=== PATIENT | female | born 1945 | race Caucasian/White ===

== ENCOUNTER 2016-10-18 17:22 | Emergency (ER) | payer OTHER ==
[~2016-10-18] VITALS: Ht 170.2 cm; Wt 117.9 kg
[~2016-10-18 17:22] MED LIST: ADVAIR 100-501 EACH INH; ADVAIR DISKU 11 UNIT INH; ALBUTEROL0.09 MG/A1 INH; AMLODIPINE BESYL5 M1 PO; AMOXICILLIN500 M3 PO; ATORVASTATIN CA10 MG PO; ATROVENT HFA 121 PUF INH; AZITHROMYCIN250 MG PO; BACTROBAN OINT.15 GM TOP; BUTALB-ACETAMI1 EACH PO; CARTIA XT180 M1 PO; CARTIA XT180 MG PO; CEFUROXIME500 MG PO; CHLORASEPTI EXT; COMBIVENT RESPI1 SPR INH; COMBIVENT RESPIM4 GM INH; COUMADIN 3 MG TA3 MG PO; COUMADIN 6 MG TA6 MG PO; COZAAR 50MG TAB50 MG PO; DIAZEPAM10 M1 PO; DIAZEPAM10 MG PO; DIFLUCAN150 M1 PO; DIFLUCAN150 MG PO; DOCUSATE SODIU100 MG PO; DURICEF500 MG PO; FUROSEMIDE20 MG PO; GUAIFENESIN600 MG PO; HYDROCODONE/ACE1 TA1 PO; KEFLEX500 MG PO; LASIX20 M1 PO; LIDODERM 5% PAT1 PAT TOP; LOMOTIL 2.5-0.1 EACH PO; LOSARTAN POTASS25 M1 PO; LOSARTAN POTASS25 MG PO; LOTRISONE CREAM15 GM TOP; METOPROLOL SUC100 M1 PO; METOPROLOL SUC100 M2 PO; METOPROLOL SUC100 MG PO; NORVASC2.5 M1 PO; OMEPRAZOLE40 M1 PO; OXYCODONE HCL15 M1 PO; OXYCODONE HYDRO15 MG PO; PERCOCET 325 MG1 TA2 PO; PREDNISONE10 MG PO; PROAIR HFA8.5 GM INH; PYRIDIUM100 M1 PO; TIZANIDINE HCL4 M1 PO; VENTOLIN1 PUF INH; VIBRAMYCIN100 MG PO; VITAMIN D2000 UNIT PO; WARFARIN SODIUM6 M1 PO
[2016-10-18] MEDS ORDERED: WARFARIN SODIUM3 M1 PO (19:43)
--- NOTE | 2016-10-18 19:57 | ED GI/GU/ABDOMINAL COMPLAINT ---
History of Present Illness General Chief Complaint: Abdominal Pain/Flank Pain Stated Complaint: ABD PAIN/BACK PAIN X 1 DAY Source: patient, old records Exam Limitations: no limitations Vital Signs & Intake/Output Vital Signs & Intake/Output Vital Signs Date Time Temp Pulse Resp B/P Pulse O2 O2 Flow FiO2 Ox Delivery Rate 10/18 2234 97.6 64 18 162/85 95 Room Air 10/18 2027 97.2 58 18 171/94 96 Room Air 10/18 1950 Room Air 10/18 1821 97.7 74 18 135/83 65 Room Air Allergies Coded Allergies: losartan (From COZAAR) (DIARRHEA - SEVERE PER PT 06/22/16) pineapple (MAKES RASHES THAT LOOK LIKE RINGS 06/22/16) shrimp (RASH 06/22/16) tramadol (HIVES 06/22/16) duloxetine (Severe, DIARRHEA 06/22/16) Sulfa (Sulfonamide Antibiotics) (VOMITING 06/22/16) celery (PER PT VOICE GETS HOARSE 06/22/16) ciprofloxacin (From CIPRO) (HAIRS ON ARM STAND UP PER PT 06/22/16) furazolidone (NAUSEA 06/22/16) glucosamine (NAUSEA 06/22/16) mushroom (YEAST INFECTION 06/22/16) sulfamethoxazole (From SEPTRA) (VOMITING 06/22/16) trimethoprim (VOMITING 06/22/16) Reconcile Medications Albuterol Sulfate (Proair Hfa) 90 MCG HFA.AER.AD 2 PUF INH PRN COPD (Reported ) Amlodipine (Norvasc) 2.5 MG TABLET 1 TAB PO PRN BP (Reported) Amlodipine Besylate 5 MG TABLET 1 TAB PO DAILY BP (Reported) Butalb/Acetaminophen/Caffeine (Pboukn-Emhnfsmt-Akol 50-325-40) 1 EACH TABLET 1 TAB PO PRN MIGRAINE (Reported) Diazepam 10 MG TABLET 1 TAB PO Q8H PRN ANXIETY (Reported) Diltiazem HCl (Cartia Xt) 180 MG CAP.ER.24H 1 CAP PO BID HEART (Reported) Furosemide (Lasix) 20 MG TABLET 1 TAB PO AD PRN SWELLING (Reported) Losartan Potassium 25 MG TABLET 1 TAB PO DAILY HEART/BP (Reported) Metoprolol Succinate 100 MG TAB.ER.24H 1 TAB PO QAM BP (Reported) Oxycodone HCl 15 MG TABLET 1 TAB PO Q4-6H PRN FIBROMYALGIA/CHRONIC FATIGUE ( Reported) Warfarin Sodium 6 MG TABLET 1 TAB PO AD BLOOD THINNER (Reported) Warfarin Sodium 3 MG TABLET 1 TAB PO QSAT BLOOD THINNER (Reported) Triage Note: PT HAS "FUNNY GRUMBLINIGS IN HER STOMACH". PT STATES SHE FEELS LIKE SHE HAS A UTI AND HER RIGHT BREAST HURTS AND STATES SHE HAS A MASS THERE AND THE GLANDS ARE ALL SWOLLEN . Triage Nurses Notes Reviewed? yes ? N Is pt currently ? No HPI: Patient states that she has been on multiple antibiotics for recurrent UTI. She states that she had one episode of diarrhea 9 days ago. Patient also states that she developed these infection 8 days ago. She has not taken anything for the yeast infection. Today she developed a gurgling sensation in her epigastric area and pain in her right lower quadrant. The pain in her right lower quadrant is constant and there are no aggravating or mitigating factors. The pain is cramping in nature. There is no radiation. There are no aggravating or radiating factors. There is been no nausea or vomiting. There are no fevers or chills. Past History Travel History Traveled to [place] past 21 day No Medical History Any Pertinent Medical History? 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 No Review of Systems Review of Systems Constitutional: Reports: no symptoms. EENTM: Reports: no symptoms. Respiratory: Reports: no symptoms. Cardiovascular: Reports: no symptoms. GI: Reports: see HPI, abdominal pain. Genitourinary: Reports: see HPI, dysuria. Musculoskeletal: Reports: no symptoms. Skin: Reports: no symptoms. Neurological/Psychological: Reports: no symptoms. Hematologic/Endocrine: Reports: no symptoms. Immunologic/Allergic: Reports: no symptoms. All Other Systems: Reviewed and Negative Physical Exam Physical Exam General Appearance: well developed/nourished, alert, awake, mild distress Head: atraumatic, normal appearance Eyes: Bilateral: PERRL, EOMI. Ears, Nose, Throat, Mouth: hearing grossly normal, moist mucous membrane Neck: normal inspection, supple, full range of motion Respiratory: normal breath sounds, chest non-tender, no respiratory distress, lungs clear Cardiovascular: regular rate/rhythm, normal peripheral pulses Gastrointestinal: normal bowel sounds, soft, no organomegaly, tenderness (RLQ) Back: NO CVA TENDERNESS Extremities: normal range of motion Neurologic/Psych: no motor/sensory deficits, awake, alert, oriented x 3, normal gait, normal mood/affect Skin: intact, normal color, warm/dry Core Measures ACS in differential dx? No Severe Sepsis Present: No Septic Shock Present: No Progress Differential Diagnosis: bowel obstruction, gastritis, hepatitis, ischemic bowel, inflamm bowel dis, pancreatitis, peptic ulcer, PUD/GERD, UTI/pyelo Plan of Care: Orders Procedure Date/time Status URINALYSIS 10/18 1957 Complete TROPONIN LEVEL 10/18 1957 Complete LIPASE 10/18 1957 Complete COMPREHENSIVE METABOLIC PANEL 10/18 1957 Complete CBC WITHOUT DIFFERENTIAL 10/18 1957 Complete AMYLASE 10/18 1957 Complete EKG 10/18 1725 Active Laboratory Tests 10/18/16 2204: Urine Color STRAW, Urine Clarity CLEAR, Urine pH 6.0, Ur Specific [place] <= 1.005, Urine Protein NEG, Urine Ketones NEG, Urine Nitrite NEG, Urine Bilirubin NEG, Urine Urobilinogen 0.2, Ur Leukocyte Esterase NEG, Ur Microscopic EXAM NOT REQUIRED, Urine Hemoglobin NEG, Urine Glucose NEG 10/18/16 2017: Anion Gap 11, Estimated GFR > 60, BUN/Creatinine Ratio 36.7 H, Glucose 100 H, Calcium 10.4 H, Total Bilirubin 0.6, AST 21, ALT 17, Alkaline Phosphatase 112, Troponin I < 0.01, Total Protein 8.1, Albumin 4.5, Globulin 3.6, Albumin/ Globulin Ratio 1.3, Amylase 38, Lipase 47, CBC w Diff NO MAN DIFF REQ, RBC 5.07, MCV 96.7, MCH 31.8 H, RDW 14.3, MPV 10.3, Gran % 57.9, Lymphocytes % 33.0, Monocytes % 7.1, Eosinophils % 1.6, Basophils % 0.4, Absolute Granulocytes 7.7 H, Absolute Lymphocytes 4.4 H, Absolute Monocytes 1.0 H, Absolute Eosinophils 0.2, Absolute Basophils 0.1, PUBS MCHC 32.8 L Diagnostic Imaging: Viewed by Me: CT Scan. Discussed w/RAD: CT Scan. Radiology Impression: PATIENT: BERTHA CARTER PRESENT AGE: 70 PATIENT ACCOUNT NO: [id number] : 47 LOCATION: [facility] ORDERING PHYSICIAN: CASEY PATTERSON MD SERVICE DATE: 10/18/16 EXAM TYPE: CAT - CT ABD & PELVIS W IV CONTRAST EXAMINATION: CT ABDOMEN AND PELVIS WITH CONTRAST CLINICAL INFORMATION: Epigastric and right lower quadrant pain. COMPARISON: CT abdomen and pelvis dated 09/16/[address] chest dated 2014. TECHNIQUE: Multidetector volumetric imaging was performed of the abdomen and pelvis before and after the IV administration of 95 mL of Optiray 320 intravenous contrast. Sagittal and coronal reformatted images were obtained on the technologist's workstation. DLP: 1129.33 mGy-cm. FINDINGS: LUNG BASES: Calcified pleural plaque and adjacent atelectatic changes right lower lobe. Calcified right hilar region. Stable low-attenuation opacity noted adjacent to left atrial appendage. LIVER, GALLBLADDER, AND BILIARY TREE: Low-attenuation segment 8 right hepatic lobe (series 2 image 11) measuring approximately 0.8 cm. It is too small to be accurately characterized. Mild prominence of the central intrahepatic bile ducts. Status post cholecystectomy. Dilated CBD measuring approximately 1.2 cm (series 602 image 46) slight interval prominence compared to prior examination. Clinical and laboratory correlation recommended. PANCREAS: Unremarkable. SPLEEN: Tiny low-attenuation posterior spleen measuring 0.7 cm and 0.4 cm too small to be accurately characterize (series 2 image 28 and 31) . ADRENAL GLANDS: Unremarkable. Within normal limits. KIDNEYS AND URETERS: Stable low-attenuation cortical lesion lower pole right kidney measuring approximately 1.5 cm. There is suggestion of internal septation. Thinning/scarring with adjacent low-attenuation partly calcified. Findings may represent scarring. Tiny low-attenuation cortical foci too small to be accurately characterized bilateral kidneys. BLADDER: Mildly thick-walled urinary bladder likely due to incomplete distention. GASTROINTESTINAL TRACT: Colonic diverticulosis without any evidence of acute diverticulitis. Appendix not well visualized. No gross evidence of acute bowel pathology. ABDOMINAL WALL: Thinning of the ventral abdominal wall as detailed in the mid left lateral aspect similar to the previous examination. LYMPH NODES: Multiple small reactive nodes noted in the mesentery. No evidence VASCULAR: Atherosclerotic disease of the aorta and aortic branches. PELVIC VISCERA: Unremarkable. OSSEOUS STRUCTURES: Bony osteopenia. Stable sclerotic density L2 vertebra represents a nonspecific finding.. IMPRESSION: 1. Stable calcified pleural plaque and calcified lymph nodes as detailed 2. Stable soft tissue prominence along the atria appendage since a chronic change. 3. Dilated CBD measuring 1.2 cm represents an interval change. Clinical and laboratory correlation recommended. Subtle low-attenuation segment 8 right hepatic lobe and posterior spleen were difficult to assess on the prior examination without contrast. 4. Stable probable scarring with calcification noted right kidney. Stable subtle low-attenuation cortical lesions bilateral kidneys. 5. No acute bowel pathology. Colonic diverticulosis. No evidence of acute diverticulitis. 6. Stable sclerotic density L2 vertebra has remained stable since 09/16/2016. Comparison to CT abdomen dated 08/05/2014 will be performed when the images are available. Addendum will be dictated upon comparison. DICTATED BY: MIGEL CAMPOS MD DATE/TIME DICTATED:10/18/162142 ULTRASOUND SPECIALIST:BRONSON DATE/TIME TRANSCRIBED:10/18/162142 CONFIDENTIAL, DO NOT COPY WITHOUT APPROPRIATE AUTHORIZATION. <Electronically signed in Other Vendor System> SIGNED BY: MIGEL CAMPOS MD 10/18/16 1793 Initial ED EKG: NSR, nonspecific ST T wave chg Prior EKG: unchanged Comments: Patient states that her abdominal pain is completely resolved after the IV fluids. Departure Departure Disposition: HOME OR SELF CARE Condition: Stable Clinical Impression Primary Impression: Upper abdominal pain, unspecified Referrals: EDWARD DUEÑAS,INNA Linares (PCP/Family) Additional Instructions: RETURN IF SYMPTOMS WORSEN OR FOR ANY CONCERNS Departure Forms: Customer Survey General Discharge Information Prescriptions: Current Visit Scripts Fluconazole (Diflucan) 1 TAB PO DAILY #3 TAB
[2016-10-18 20:45] LABS: ABSOLUTE BASOPHIL COUNT 0.1 /CUMM (0.0-0.2); ABSOLUTE EOSINOPHIL COUNT 0.2 /CUMM (0.0-0.7); ABSOLUTE GRANULOCYTE CT 7.7 /CUMM (1.4-6.5); ABSOLUTE LYMPH COUNT 4.4 /CUMM (1.2-3.4); BASOPHIL % 0.4 % (0.0-2.0); EOSINOPHIL % 1.6 % (0-5); GRANULOCYTE % 57.9 % (42.2-75.2); MEAN CORPUSCULAR HGB 31.8 PG (27.0-31.0); MEAN CORPUSCULAR HGB CONC 32.8 G/DL (33.0-37.0); MEAN CORPUSCULAR VOLUME 96.7 FL (81.0-99.0); MEAN PLATELET VOLUME 10.3 FL (7.4-10.4); RBC DISTRIBUTION WIDTH 14.3 % (11.5-14.5); RED BLOOD CELL CT 5.07 /CUMM (4.20-5.40); WHITE BLOOD CELL COUNT 13.4 /CUMM (4.8-10.8)
[2016-10-18 21:00] LABS: PLATELET COUNT 210 /CUMM (130-400)
--- NOTE | 2016-10-18 22:08 | CT SCAN REPORT ---
EXAMINATION: CT ABDOMEN AND PELVIS WITH CONTRAST CLINICAL INFORMATION: Epigastric and right lower quadrant pain. COMPARISON: CT abdomen and pelvis dated 09/16/[address] chest dated 03/18/2015. TECHNIQUE: Multidetector volumetric imaging was performed of the abdomen and pelvis before and after the IV administration of 95 mL of Optiray 320 intravenous contrast. Sagittal and coronal reformatted images were obtained on the technologist's workstation. DLP: 1129.33 mGy-cm. FINDINGS: LUNG BASES: Calcified pleural plaque and adjacent atelectatic changes right lower lobe. Calcified right hilar region. Stable low-attenuation opacity noted adjacent to left atrial appendage. LIVER, GALLBLADDER, AND BILIARY TREE: Low-attenuation segment 8 right hepatic lobe (series 2 image 11) measuring approximately 0.8 cm. It is too small to be accurately characterized. Mild prominence of the central intrahepatic bile ducts. Status post cholecystectomy. Dilated CBD measuring approximately 1.2 cm (series 602 image 46) slight interval prominence compared to prior examination. Clinical and laboratory correlation recommended. PANCREAS: Unremarkable. SPLEEN: Tiny low-attenuation posterior spleen measuring 0.7 cm and 0.4 cm too small to be accurately characterize (series 2 image 28 and 31) . ADRENAL GLANDS: Unremarkable. Within normal limits. KIDNEYS AND URETERS: Stable low-attenuation cortical lesion lower pole right kidney measuring approximately 1.5 cm. There is suggestion of internal septation. Thinning/scarring with adjacent low-attenuation partly calcified. Findings may represent scarring. Tiny low-attenuation cortical foci too small to be accurately characterized bilateral kidneys. BLADDER: Mildly thick-walled urinary bladder likely due to incomplete distention. GASTROINTESTINAL TRACT: Colonic diverticulosis without any evidence of acute diverticulitis. Appendix not well visualized. No gross evidence of acute bowel pathology. ABDOMINAL WALL: Thinning of the ventral abdominal wall as detailed in the mid left lateral aspect similar to the previous examination. LYMPH NODES: Multiple small reactive nodes noted in the mesentery. No evidence VASCULAR: Atherosclerotic disease of the aorta and aortic branches. PELVIC VISCERA: Unremarkable. OSSEOUS STRUCTURES: Bony osteopenia. Stable sclerotic density L2 vertebra represents a nonspecific finding.. IMPRESSION: 1. Stable calcified pleural plaque and calcified lymph nodes as detailed 2. Stable soft tissue prominence along the atria appendage since a chronic change. 3. Dilated CBD measuring 1.2 cm represents an interval change. Clinical and laboratory correlation recommended. Subtle low-attenuation segment 8 right hepatic lobe and posterior spleen were difficult to assess on the prior examination without contrast. 4. Stable probable scarring with calcification noted right kidney. Stable subtle low-attenuation cortical lesions bilateral kidneys. 5. No acute bowel pathology. Colonic diverticulosis. No evidence of acute diverticulitis. 6. Stable sclerotic density L2 vertebra has remained stable since 09/16/2016. Comparison to CT abdomen dated 08/05/2014 will be performed when the images are available. Addendum will be dictated upon comparison.
[2016-10-18 22:35] VITALS: BP 162/85
[2016-10-18] MEDS ORDERED: DIFLUCAN200 M1 PO (22:40)
== END 2016-10-18 22:48 ==
LOC: ERH 17:22
PROVIDERS: Emergency Medicine
DX: R10.13 Epigastric pain (principal)
CPT/HCPCS: 74177; 81001; 81003; 93005; 93010; 96360; 96361

== ENCOUNTER 2016-12-01 20:15 | Emergency (ER) | payer OTHER ==
[~2016-12-01 20:15] MED LIST changes: +DIFLUCAN200 M1 PO; +WARFARIN SODIUM3 M1 PO
--- NOTE | 2016-12-01 20:55 | ED GENERAL ADULT ---
History of Present Illness General Chief Complaint: Dyspnea (COPD, CHF, Other) Stated Complaint: PT C/O OF SOB/ JAW PAIN Source: patient Exam Limitations: no limitations Vital Signs & Intake/Output Vital Signs & Intake/Output Vital Signs Date Time Temp Pulse Resp B/P Pulse O2 O2 Flow FiO2 Ox Delivery Rate 12/02 0152 97.1 76 18 163/89 96 Room Air 12/02 0054 98.9 70 18 140/75 95 12/01 2256 97.0 77 18 144/85 96 12/01 215 96 12/01 2020 97.4 89 22 146/88 98 Room Air ED Intake and Output 12/02 0000 12/01 1200 Intake Total 30 Output Total Balance 30 Intake, Oral 30 Allergies Coded Allergies: losartan (From COZAAR) (DIARRHEA - SEVERE PER PT 06/22/16) pineapple (MAKES RASHES THAT LOOK LIKE RINGS 06/22/16) shrimp (RASH 06/22/16) tramadol (HIVES 06/22/16) duloxetine (Severe, DIARRHEA 06/22/16) Sulfa (Sulfonamide Antibiotics) (VOMITING 06/22/16) celery (PER PT VOICE GETS HOARSE 06/22/16) ciprofloxacin (From CIPRO) (HAIRS ON ARM STAND UP PER PT 06/22/16) furazolidone (NAUSEA 06/22/16) glucosamine (NAUSEA 06/22/16) mushroom (YEAST INFECTION 06/22/16) sulfamethoxazole (From SEPTRA) (VOMITING 06/22/16) trimethoprim (VOMITING 06/22/16) Reconcile Medications Albuterol Sulfate (Proair Hfa) 90 MCG HFA.AER.AD 2 PUF INH PRN COPD (Reported ) Amlodipine (Norvasc) 2.5 MG TABLET 1 TAB PO PRN BP (Reported) Amlodipine Besylate 5 MG TABLET 1 TAB PO DAILY BP (Reported) Butalb/Acetaminophen/Caffeine (Ivmhsk-Csxjutdn-Fwtk 50-325-40) 1 EACH TABLET 1 TAB PO PRN MIGRAINE (Reported) Diazepam 10 MG TABLET 1 TAB PO Q8H PRN ANXIETY (Reported) Diltiazem HCl (Cartia Xt) 180 MG CAP.ER.24H 1 CAP PO BID HEART (Reported) Fluconazole (Diflucan) 200 MG TABLET 1 TAB PO DAILY YEAST INFECTION Furosemide (Lasix) 20 MG TABLET 1 TAB PO AD PRN SWELLING (Reported) Losartan Potassium 25 MG TABLET 1 TAB PO DAILY HEART/BP (Reported) Metoprolol Succinate 100 MG TAB.ER.24H 1 TAB PO QAM BP (Reported) Oxycodone HCl 15 MG TABLET 1 TAB PO Q4-6H PRN FIBROMYALGIA/CHRONIC FATIGUE ( Reported) Warfarin Sodium 6 MG TABLET 1 TAB PO AD BLOOD THINNER (Reported) Warfarin Sodium 3 MG TABLET 1 TAB PO QSAT BLOOD THINNER (Reported) Triage Note: PER PT FELL A FEW WEEKS AGO, AND ON LASIX INCREASED DOSE, CUT DOWN ON OXY AND VALIUM AND HAVING JAW PAIN X 4 DAYS Triage Nurses Notes Reviewed? yes Onset: Abrupt Duration: day(s): Timing: recent history HPI: 12/01/18 This is a 70-year-old female who presents to the emergency department for right- sided rib pain, difficulty breathing, and jaw pain. The patient states that she fell approximately 2 weeks ago and had some right-sided rib pain. She subsequently developed some difficulty breathing and was apparently put on Lasix. She said over the past 48 hours she's had a cough and difficulty breathing. The onset of the symptoms have been abrupt, the duration has been approximately 48 hours, the severity is significant as her symptoms required her to come to the emergency department for care. (LAUREN MAYA DO) Past History Travel History Traveled to [place] past 21 day No Medical History Any Pertinent Medical History? 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 No (LAUREN MAYA DO) Review of Systems Review of Systems Constitutional: Denies: fever. EENTM: Denies: visual changes. Respiratory: Reports: cough, short of breath, sputum production. Cardiovascular: Denies: chest pain (rib pain). GI: Reports: abdominal pain. Genitourinary: Reports: no symptoms. Musculoskeletal: Reports: joint pain, muscle pain. Skin: Denies: rash. Neurological/Psychological: Reports: no symptoms. Hematologic/Endocrine: Reports: no symptoms. (LAUREN MAYA DO) Physical Exam Physical Exam General Appearance: alert, awake, anxious, mild distress Head: atraumatic, normal appearance Eyes: Bilateral: normal appearance, PERRL, EOMI. Ears, Nose, Throat: normal pharynx, normal ENT inspection Neck: normal inspection, supple Respiratory: decreased breath sounds Cardiovascular: regular rate/rhythm Peripheral Pulses: 4+ radial (R), 4+ radial (L) Gastrointestinal: non-tender Back: decreased range of motion Extremities: normal inspection Neurologic/Psych: no motor/sensory deficits, awake, alert, oriented x 3 Skin: intact, normal color, warm/dry Core Measures ACS in differential dx? No CVA/TIA Diagnosis: No Severe Sepsis Present: No Septic Shock Present: No (LAUREN MAYA DO) Progress Differential Diagnoses I considered the following diagnoses in my evaluation of the patient: [ACS, COPD , ASTHMA, PNEUMONIA, BRONCHITIS] Plan of Care: Orders Procedure Date/time Status TROPONIN LEVEL 12/01 2136 Complete TOTAL TRIODOTHYROXINE 12/01 2136 Complete D-DIMER 12/01 2136 Complete COMPREHENSIVE METABOLIC PANEL 12/01 2136 Complete CBC WITHOUT DIFFERENTIAL 12/01 2136 Complete EKG 12/01 2021 Active Laboratory Tests 12/01/165: Anion Gap 9, Estimated GFR > 60, BUN/Creatinine Ratio 25.0, Glucose 94, Calcium 9.6, Total Bilirubin 0.3, AST 17, ALT 24, Alkaline Phosphatase 112, Troponin I < 0.01, Total Protein 6.3, Albumin 3.3 L, Globulin 3.0, Albumin/Globulin Ratio 1.1, Total T3 1.29, D-Dimer < 200, CBC w Diff NO MAN DIFF REQ, RBC 4.57, MCV 96.0, MCH 31.7 H, RDW 13.7, MPV 9.5, Gran % 56.0, Lymphocytes % 34.0, Monocytes % 7.0, Eosinophils % 2.3, Basophils % 0.7, Absolute Granulocytes 5.4, Absolute Lymphocytes 3.3, Absolute Monocytes 0.7 H, Absolute Eosinophils 0.2, Absolute Basophils 0.1, PUBS MCHC 33.1 CXR Impression: no acute abnormality Initial ED EKG: nonspecific ST T wave chg (LAUREN MAYA DO) Departure Departure Disposition: STILL A PATIENT Condition: Stable Clinical Impression Primary Impression: Dyspnea Secondary Impressions: Bronchitis Referrals: EDWARD DUEÑAS,INNA Linares (PCP/Family) Departure Forms: Customer Survey General Discharge Information Comments 12/01/16 The patient was treated with albuterol and Atrovent and Solu-Medrol. Chest x- ray and labs were ordered. The patient was signed out to Dr. Lacey at 10 PM. (LAUREN AMYA DO) PA/WASTE RECYCLER Co-Sign Statement Statement: ED Attending supervision documentation- [] I saw and evaluated the patient. I have also reviewed all the pertinent lab results and diagnostic results. I agree with the findings and the plan of care as documented in the PA's/WASTE RECYCLER's documentation. [x] I have reviewed the ED Record and agree with the PA's/WASTE RECYCLER's documentation. [] Additions or exceptions (if any) to the PAs/WASTE RECYCLER's note and plan are summarized below: [] (MANAV DUEÑAS,LAWRENCE Gonzalez) Critical Care Note Critical Care Note Critical Care Time: non-applicable (LAUREN MAYA DO)
--- NOTE | 2016-12-01 22:12 | RADIOLOGY REPORT ---
EXAMINATION: XR PORTABLE CHEST CLINICAL INFORMATION: Shortness of breath. COMPARISON: 12/26/2015 TECHNIQUE: Portable AP view of the chest was obtained. FINDINGS: There is persistent elevation of the right hemidiaphragm. No consolidation, edema, or significant effusion. Minimal blunting at the right costophrenic angle is unchanged and may be chronic. No pneumothorax. The cardiomediastinal silhouette is unchanged, with a calcified aorta. No acute osseous abnormality. IMPRESSION: No acute pulmonary findings.
[2016-12-01 22:22] LABS: ABSOLUTE EOSINOPHIL COUNT 0.2 /CUMM (0.0-0.7); ABSOLUTE MONOCYTE COUNT 0.7 /CUMM (0.10-0.60); EOSINOPHIL % 2.3 % (0-5); MEAN CORPUSCULAR HGB 31.7 PG (27.0-31.0); RED BLOOD CELL CT 4.57 /CUMM (4.20-5.40)
[2016-12-01 22:26] LABS: ABSOLUTE BASOPHIL COUNT 0.1 /CUMM (0.0-0.2); ABSOLUTE GRANULOCYTE CT 5.4 /CUMM (1.4-6.5); ABSOLUTE LYMPH COUNT 3.3 /CUMM (1.2-3.4); BASOPHIL % 0.7 % (0.0-2.0); HEMATOCRIT 43.9 % (37-47); MEAN CORPUSCULAR HGB CONC 33.1 G/DL (33.0-37.0); PLATELET COUNT 131 /CUMM (130-400); RBC DISTRIBUTION WIDTH 13.7 % (11.5-14.5); WHITE BLOOD CELL COUNT 9.7 /CUMM (4.8-10.8)
[2016-12-01 22:44] LABS: MEAN PLATELET VOLUME 9.5 FL (7.4-10.4)
[2016-12-02 01:52] VITALS: BP 163/89
== END 2016-12-02 01:54 ==
LOC: ERH 20:15
PROVIDERS: Emergency Medicine
DX: J40 Bronchitis, not specified as acute or chronic (principal)
CPT/HCPCS: 1263; 93005; 93010

== ENCOUNTER 2017-02-14 15:36 | Emergency (ER) | payer OTHER ==
[~2017-02-14] VITALS: Ht 170.2 cm; Wt 122.9 kg
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
[2017-02-14 18:57] VITALS: BP 159/75
--- NOTE | 2017-02-14 18:57 | CT SCAN REPORT ---
EXAMINATION: CT HEAD WITHOUT CONTRAST CLINICAL INFORMATION: Lightheaded. Blurry vision. Headache. On Coumadin. COMPARISON: 01/12/2016 TECHNIQUE: Contiguous axial imaging was performed from the skull base to vertex without intravenous contrast. DLP: 1453 mGy-cm. FINDINGS: There is no evidence of acute intracranial hemorrhage or territorial infarction. No abnormal mass effect or midline shift is seen. Davison to white matter differentiation is well preserved. No extra-axial fluid collections are identified. No hydrocephalus. No significant volume loss. There is no abnormal attenuation within the brain parenchyma. No acute osseous or soft tissue abnormality. Hyperostosis frontalis interna. The mastoid air cells and visualized portions of the paranasal sinuses are well aerated. IMPRESSION: No acute intracranial pathology.
--- NOTE | 2017-02-14 19:12 | RADIOLOGY REPORT ---
EXAMINATION: XR ANKLE, RIGHT CLINICAL INFORMATION: Swelling, pain after fall COMPARISON: Right foot 09/16/2016 TECHNIQUE: AP, lateral, and mortise views of the right ankle. FINDINGS: Diffuse subcutaneous edema of the lower leg extending to the ankle without specificity. No radiographic evidence of acute fracture or subluxation. The mortise appears congruent. No joint effusion. No significant degenerative changes. Stable 1.4 cm sclerotic lesion within the calcaneus. IMPRESSION: Diffuse subcutaneous edema without specificity to the ankle. No radiographic evidence of acute fracture or subluxation.
[2017-03-24] MEDS ORDERED: VALIUM5 M2 PO (19:16)
== END 2017-02-14 19:54 ==
LOC: ERH 15:36
DX: S00.93XA Contusion of unspecified part of head, initial encounter (principal); S93.401A Sprain of unspecified ligament of right ankle, initial encounter; W18.09XA Striking against other object with subsequent fall, initial encounter; Y93.01 Activity, walking, marching and hiking; Y92.014 Private driveway to single-family (private) house as the place of occurrence of the external cause
CPT/HCPCS: 73610-RT

== ENCOUNTER 2017-03-02 19:18 | Emergency (ER) | payer OTHER ==
[~2017-03-02] VITALS: Ht 170.2 cm; Wt 122.9 kg
[2017-03-02 19:38] VITALS: BP 128/62
--- NOTE | 2017-03-02 20:50 | ED DYSPNEA/ASTHMA COMPLAINT ---
History of Present Illness General Chief Complaint: Dyspnea (COPD, CHF, Other) Stated Complaint: SOB Source: patient, old records Exam Limitations: no limitations Vital Signs & Intake/Output Vital Signs & Intake/Output Vital Signs Date Time Temp Pulse Resp B/P B/P Pulse O2 O2 Flow FiO2 Mean Ox Delivery Rate 03/02 2145 96 Room Air 03/02 2126 96 03/02 1938 97.6 79 20 128/62 94 Room Air ED Intake and Output 03/03 0000 03/02 1200 Intake Total 120 Output Total Balance 120 Intake, Oral 120 Patient 271 lb Weight Weight Estimated Measurement Method Allergies Coded Allergies: losartan (From COZAAR) (DIARRHEA - SEVERE PER PT 06/22/16) pineapple (MAKES RASHES THAT LOOK LIKE RINGS 06/22/16) shrimp (RASH 06/22/16) tramadol (HIVES 06/22/16) duloxetine (Severe, DIARRHEA 06/22/16) Sulfa (Sulfonamide Antibiotics) (VOMITING 06/22/16) celery (PER PT VOICE GETS HOARSE 06/22/16) ciprofloxacin (From CIPRO) (HAIRS ON ARM STAND UP PER PT 06/22/16) furazolidone (NAUSEA 06/22/16) glucosamine (NAUSEA 06/22/16) mushroom (YEAST INFECTION 06/22/16) sulfamethoxazole (From SEPTRA) (VOMITING 06/22/16) trimethoprim (VOMITING 06/22/16) Reconcile Medications Albuterol Sulfate (Proair Hfa) 90 MCG HFA.AER.AD 2 PUF INH PRN COPD (Reported ) Amlodipine (Norvasc) 2.5 MG TABLET 1 TAB PO PRN BP (Reported) Amlodipine Besylate 5 MG TABLET 1 TAB PO DAILY BP (Reported) Butalb/Acetaminophen/Caffeine (Btvcpz-Cqrplwum-Iplt 50-325-40) 1 EACH TABLET 1 TAB PO PRN MIGRAINE (Reported) Diazepam 10 MG TABLET 1 TAB PO Q8H PRN ANXIETY (Reported) Diltiazem HCl (Cartia Xt) 180 MG CAP.ER.24H 1 CAP PO BID HEART (Reported) Fluconazole (Diflucan) 200 MG TABLET 1 TAB PO DAILY YEAST INFECTION Furosemide (Lasix) 20 MG TABLET 1 TAB PO AD PRN SWELLING (Reported) Losartan Potassium 25 MG TABLET 1 TAB PO DAILY HEART/BP (Reported) Metoprolol Succinate 100 MG TAB.ER.24H 1 TAB PO QAM BP (Reported) Ondansetron (Zofran Odt) 4 MG TAB.RAPDIS 1 TAB SL TID PRN NAUSEA Oxycodone HCl 15 MG TABLET 1 TAB PO Q4-6H PRN FIBROMYALGIA/CHRONIC FATIGUE ( Reported) Warfarin Sodium 6 MG TABLET 1 TAB PO AD BLOOD THINNER (Reported) Warfarin Sodium 3 MG TABLET 1 TAB PO QSAT BLOOD THINNER (Reported) Triage Note: RECEIVED 71 YO FEMALE C/O SHORTNESS OF BREATH, STARTED TODAY. PT ALSO REPORTS PERSISTENT NAUSEA X 2 WEEKS SINCE HITTING HEAD (PT WAS SEEN HERE AND CT SCAN DONE). PT REPORTS RIGHT BREAST PAIN, PT HAS A RIGHT BREAST MASS? Triage Nurses Notes Reviewed? yes Onset: Abrupt Duration: day(s): (1), better, constant Timing: recent history Severity: mild, moderate Prior Episodes/Possible Cause: chronic episodes Associated Symptoms: cough, nausea, no vomiting HPI: 71-year-old female history of COPD A. fib on Coumadin use 2 L of oxygen at night and when necessary presents complaining of intermittent shortness of breath and nonproductive cough that began today and she attributes secondary to the pollen she's had a history of similar episodes in the past. She is also complaining of nausea going on for the past 2 weeks after she fell and hit her head. The patient was seen at the time here and had an unremarkable workup. She denies headache visual changes neck or back pain. No abdominal pain no chest pain palpitations dizziness lightheadedness. She is not on prednisone she does not smoke. She states she has not had to increase her amount of oxygen she uses The patient had mention in triage that she was complaining of pain to her right breast. The patient states to me that this is a chronic issue attributed to scar tissue that she has been worked up in the past there is no history of malignancy no overlying skin changes fever chills or redness to her breast no discharge (JAUN VICTORIA) Past History Travel History Traveled to [place] past 21 day No Medical History Any Pertinent Medical History? 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 No (JAUN VICTORIA) Review of Systems Review of Systems Constitutional: Reports: see HPI. All Other Systems: Reviewed and Negative Comments Review of systems: See HPI, All other systems negative. Constitutional, no chills no fever, no malaise HEENT: no sore throat no congestion, no ear pain Cardiovascular: No chest pain , no palpitation Skin: no rashes, no change in skin Respiratory: dyspnea cough no sputum GI: No nausea no vomiting, no diarrhea, : No dysuria Muscle skeletal: No joint pain, no joint swelling, no back pain, no neck pain, Neurologic: No numbness no confusion, no headache Psych: No stress Heme/endocrine: No bruising Immunology: No lymphadenopathy (JAUN VICTORIA) Physical Exam Physical Exam General Appearance: well developed/nourished, no apparent distress, alert, awake Respiratory: normal breath sounds, chest non-tender Comments: Well-developed well-nourished person in no acute distress HEENT: Normal EENT exam; PERRL, EOMI, HEAD is atraumatic. moist mucous membranes. Neck: Supple, normal range of motion Back: Nontender, no CVA tenderness. Full range of motion Cardiovascular: Regular rate and rhythms no murmurs rubs or gallops Respiratory: Chest nontender.There were no bony deformities, no asymmetry. No respiratory distress. Patient speaking in full complete sentences. Breath sounds clear to auscultation bilaterally: NO W/R/R Abdomen: Soft, nontender nondistended, no appreciable organomegaly. Normal bowel sounds. No rebound/guarding,No ascites. Extremity: No edema, full range of motion of extremities Neuro: Alert oriented x3, motor sensory normal There were no obvious focal neurologic abnormalities. Skin: No appreciable rash on exposed skin, skin is warm and dry. Psych: Mood and affect is normal, memory and judgment is normal. Core Measures ACS in differential dx? Yes Severe Sepsis Present: No Septic Shock Present: No (NADIA GOMEZ,JAUN) Progress Differential Diagnosis: asthma, AMI, bronchitis, costochondritis, CHF, COPD, pericarditis, pulmonary embolism, pneumonia, pneumothorax, unstable angina, electrolyte abnoramlity Plan of Care: Orders Procedure Date/time Status TROPONIN LEVEL 03/02 2054 Complete PROTHROMBIN TIME 03/02 2054 Complete COMPREHENSIVE METABOLIC PANEL 03/02 2054 Complete CBC WITHOUT DIFFERENTIAL 03/02 2054 Complete B-TYPE NATRIURETIC PEP (BNP) 03/02 2054 Complete EKG 03/02 1920 Active Laboratory Tests 03/02/172243: Anion Gap 6, Estimated GFR 55 L, BUN/Creatinine Ratio 23.0, Glucose 85, Calcium 9.6, Total Bilirubin 0.3, AST 19, ALT 31, Alkaline Phosphatase 117, Troponin I < 0.01, Rzr-G-Vvuwanjkuzp Pept 1110 H, Total Protein 6.8, Albumin 3.7, Globulin 3.1, Albumin/Globulin Ratio 1.2, PT 22.2 H, INR 2.13 H 03/02/172150: CBC w Diff NO MAN DIFF REQ, RBC 4.43, MCV 98.2, MCH 32.1 H, RDW 14.3, MPV 9.4, Gran % 65.3, Lymphocytes % 26.3, Monocytes % 6.3, Eosinophils % 2.0, Basophils % 0.1, Absolute Granulocytes 8.5 H, Absolute Lymphocytes 3.4, Absolute Monocytes 0.8 H, Absolute Eosinophils 0.3, Absolute Basophils 0, PUBS MCHC 32.7 L 03/02/172100: Bno-P-Ezauhaleedj Pept Cancelled DuoNeb ordered labs ordered old records reviewed case discussed with Dr. Villalobos Patient reports feeling improved after breathing treatment I discussed with her her x-ray findings and the chronic incidental finding regarding her elevated diaphragm. Pending labs Patient ambulatory around the ER with steady gait denies dyspnea dizziness chest pain. The patient is refusing prednisone which I strongly advise given her history of symptoms stating that it makes her "tameka" I discussed the need for close follow-up with her primary care physician Dr. Demarco tomorrow Zofran was provided for her nausea answered all of her questions she feels comfortable this plan cleared for discharge (JAUN VICTORIA) Diagnostic Imaging: Viewed by Me: Radiology Read. Discussed w/RAD: Radiology Read. Radiology Impression: PATIENT: BERTHA CARTER PRESENT AGE: 71 PATIENT ACCOUNT NO: [id number] : 47 LOCATION: [facility] ORDERING PHYSICIAN: JAUN GOMEZ SERVICE DATE: 03/02/17 EXAM TYPE: RAD - XRY-PORTABLE CHEST XRAY EXAMINATION: XR PORTABLE CHEST CLINICAL INFORMATION: 71-year-old female with dyspnea. Presumptive diagnosis pneumonia, CHF. COMPARISON: CT of the chest on 03/18/2015 and chest x-ray on 12/01/2016. TECHNIQUE: Portable AP semierect view of the chest was obtained. FINDINGS: The right hemidiaphragm is chronically and significantly elevated. This results in some compression atelectasis in the right lower lobe. The cardiac silhouette is prominent but unchanged. The mediastinum is stable. There are no definite signs of pneumonia or CHF. IMPRESSION: Abnormally elevated right hemidiaphragm. DICTATED BY: ZANE ALEJANDRE MD DATE/TIME DICTATED:03/02/172223 CORPORATE SAFETY COORDINATOR:BRONSON DATE/TIME TRANSCRIBED:03/02/172223 CONFIDENTIAL, DO NOT COPY WITHOUT APPROPRIATE AUTHORIZATION. <Electronically signed in Other Vendor System> SIGNED BY: ZANE ALEJANDRE MD 03/02/172235 Initial ED EKG: afib 70, no acute st seg changes, normal axis Prior EKG: unchanged (12/2016) (JAUN VICTORIA) Departure Departure Time of Disposition: 2337 Disposition: HOME OR SELF CARE Condition: Stable Clinical Impression Primary Impression: COPD (chronic obstructive pulmonary disease) Referrals: EDWARD DUEÑAS,INNA Linares (PCP/Family) Additional Instructions: zofran for nausea. follow up with your pmd tomorrow, continue taking your medication as prescribed, return to the er with any concerns this was sent to [facility] Departure Forms: Customer Survey General Discharge Information Prescriptions: Current Visit Scripts Ondansetron (Zofran Odt) 1 TAB SL TID PRN NAUSEA #10 TAB (JAUN VICTORIA) PA/PACKAGER Co-Sign Statement Statement: ED Attending supervision documentation- [] I saw and evaluated the patient. I have also reviewed all the pertinent lab results and diagnostic results. I agree with the findings and the plan of care as documented in the PA's/PACKAGER's documentation. [X] I have reviewed the ED Record and agree with the PA's/PACKAGER's documentation. [] Additions or exceptions (if any) to the PAs/PACKAGER's note and plan are summarized below: [] (ANITA DUEÑAS,LINDSAY) Critical Care Note Critical Care Note Critical Care Time: non-applicable (NADIA GOMEZ,JAUN)
[2017-03-02 22:02] LABS: ABSOLUTE BASOPHIL COUNT 0 /CUMM (0.0-0.2); ABSOLUTE EOSINOPHIL COUNT 0.3 /CUMM (0.0-0.7); ABSOLUTE GRANULOCYTE CT 8.5 /CUMM (1.4-6.5); ABSOLUTE LYMPH COUNT 3.4 /CUMM (1.2-3.4); ABSOLUTE MONOCYTE COUNT 0.8 /CUMM (0.10-0.60); BASOPHIL % 0.1 % (0.0-2.0); GRANULOCYTE % 65.3 % (42.2-75.2); HEMATOCRIT 43.5 % (37-47); MEAN CORPUSCULAR HGB 32.1 PG (27.0-31.0); MEAN CORPUSCULAR HGB CONC 32.7 G/DL (33.0-37.0); MEAN CORPUSCULAR VOLUME 98.2 FL (81.0-99.0); MEAN PLATELET VOLUME 9.4 FL (7.4-10.4); RBC DISTRIBUTION WIDTH 14.3 % (11.5-14.5); RED BLOOD CELL CT 4.43 /CUMM (4.20-5.40)
[2017-03-02 22:21] LABS: PLATELET COUNT 128 /CUMM (130-400)
--- NOTE | 2017-03-02 22:36 | RADIOLOGY REPORT ---
EXAMINATION: XR PORTABLE CHEST CLINICAL INFORMATION: 71-year-old female with dyspnea. Presumptive diagnosis pneumonia, CHF. COMPARISON: CT of the chest on 03/18/2015 and chest x-ray on 12/01/2016. TECHNIQUE: Portable AP semierect view of the chest was obtained. FINDINGS: The right hemidiaphragm is chronically and significantly elevated. This results in some compression atelectasis in the right lower lobe. The cardiac silhouette is prominent but unchanged. The mediastinum is stable. There are no definite signs of pneumonia or CHF. IMPRESSION: Abnormally elevated right hemidiaphragm.
[2017-03-02 22:59] LABS: PT 22.2 SEC (9.4-12.5)
[2017-03-02] MEDS ORDERED: ZOFRAN ODT4 M1 SL (23:39)
[2017-03-24] MEDS ORDERED: VALIUM5 M2 PO (19:16)
== END 2017-03-03 00:20 ==
LOC: ERH 19:18
PROVIDERS: Physician Assistant Medical
DX: J44.9 Chronic obstructive pulmonary disease, unspecified (principal); Z87.891 Personal history of nicotine dependence
CPT/HCPCS: 1263; 93005; 93010; 96374

== ENCOUNTER 2017-03-30 11:17 | Emergency (ER) | payer OTHER ==
[~2017-03-30] VITALS: Ht 170.2 cm; Wt 122.5 kg
[~2017-03-30 11:17] MED LIST changes: +VALIUM5 M2 PO; +ZOFRAN ODT4 M1 SL
[2017-03-30 11:32] VITALS: BP 116/82
--- NOTE | 2017-03-30 13:13 | CT SCAN REPORT ---
EXAMINATION: CT HEAD WITHOUT CONTRAST CLINICAL INFORMATION: Blurry vision. COMPARISON: 08/27/2014 and 02/14/2017 TECHNIQUE: Contiguous axial imaging was performed from the skull base to vertex without intravenous administration of contrast. DLP: 613 mGy-cm FINDINGS: No evidence of acute intracranial hemorrhage, extra-axial fluid collection, mass or midline shift. The tyson-white matter differentiation is well preserved. No signs of an acute major vascular territory infarction. The ventricles have normal size and configuration. There is mild atherosclerotic calcification of the cavernous carotid arteries. There is hyperostosis frontalis interna. There is an old, nonaggressive 0.6 cm lucent focus in the right calvarium. No suspicious bone lesion. The visualized paranasal sinuses, mastoid air cells and middle ear cavities are well pneumatized. The lens has been extracted from the left globe. The temporomandibular joints are unremarkable. IMPRESSION: No acute intracranial pathology compared to 02/14/2017.
[2017-03-30 13:24] LABS: ABSOLUTE BASOPHIL COUNT 0.1 /CUMM (0.0-0.2); ABSOLUTE EOSINOPHIL COUNT 0.1 /CUMM (0.0-0.7); ABSOLUTE GRANULOCYTE CT 5.3 /CUMM (1.4-6.5); ABSOLUTE LYMPH COUNT 2.1 /CUMM (1.2-3.4); ABSOLUTE MONOCYTE COUNT 0.7 /CUMM (0.10-0.60); BASOPHIL % 0.8 % (0.0-2.0); EOSINOPHIL % 1.2 % (0-5); GRANULOCYTE % 64.5 % (42.2-75.2); HEMATOCRIT 43.5 % (37-47); MEAN CORPUSCULAR HGB 32.2 PG (27.0-31.0); MEAN CORPUSCULAR HGB CONC 32.8 G/DL (33.0-37.0); MEAN CORPUSCULAR VOLUME 98.1 FL (81.0-99.0); MEAN PLATELET VOLUME 11.7 FL (7.4-10.4); RED BLOOD CELL CT 4.43 /CUMM (4.20-5.40); WHITE BLOOD CELL COUNT 8.2 /CUMM (4.8-10.8)
[2017-03-30 13:28] LABS: PT 21.1 SEC (9.4-12.5)
[2017-03-30 13:44] LABS: PLATELET COUNT 151 /CUMM (130-400)
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
== END 2017-03-30 14:44 ==
LOC: ERH 11:17
PROVIDERS: Physician Assistant Medical
DX: H53.8 Other visual disturbances (principal); I10 Essential (primary) hypertension; I48.91 Unspecified atrial fibrillation; J44.9 Chronic obstructive pulmonary disease, unspecified; Z87.891 Personal history of nicotine dependence
CPT/HCPCS: 81001; 93005; 93010

== ENCOUNTER 2017-04-28 00:28 | Emergency (ER) | payer OTHER ==
--- NOTE | 2017-04-28 02:11 | ED DYSPNEA/ASTHMA COMPLAINT ---
History of Present Illness General Chief Complaint: Dyspnea (COPD, CHF, Other) Stated Complaint: DIFF BREATHING Source: patient Exam Limitations: no limitations Vital Signs & Intake/Output Vital Signs & Intake/Output Vital Signs Date Time Temp Pulse Resp B/P B/P Pulse O2 O2 Flow FiO2 Mean Ox Delivery Rate 04/28 0149 97.4 68 16 127/81 95 Room Air Allergies Coded Allergies: losartan (From COZAAR) (DIARRHEA - SEVERE PER PT 06/22/16) pineapple (MAKES RASHES THAT LOOK LIKE RINGS 06/22/16) shrimp (RASH 06/22/16) tramadol (HIVES 06/22/16) duloxetine (Severe, DIARRHEA 06/22/16) Sulfa (Sulfonamide Antibiotics) (VOMITING 06/22/16) celery (PER PT VOICE GETS HOARSE 06/22/16) ciprofloxacin (From CIPRO) (HAIRS ON ARM STAND UP PER PT 06/22/16) furazolidone (NAUSEA 06/22/16) glucosamine (NAUSEA 06/22/16) mushroom (YEAST INFECTION 06/22/16) sulfamethoxazole (From SEPTRA) (VOMITING 06/22/16) trimethoprim (VOMITING 06/22/16) Reconcile Medications Albuterol Sulfate (Proair Hfa) 90 MCG HFA.AER.AD 2 PUF INH PRN COPD (Reported ) Amlodipine (Norvasc) 2.5 MG TABLET 1 TAB PO PRN BP (Reported) Amlodipine Besylate 5 MG TABLET 1 TAB PO DAILY BP (Reported) Butalb/Acetaminophen/Caffeine (Ahhcaq-Liiptvik-Lqtw 50-325-40) 1 EACH TABLET 1 TAB PO PRN MIGRAINE (Reported) Diazepam 10 MG TABLET 1 TAB PO Q8H PRN ANXIETY (Reported) Diazepam (Valium) 5 MG TABLET 1 TAB PO Q8P PRN PAIN Diltiazem HCl (Cartia Xt) 180 MG CAP.ER.24H 1 CAP PO BID HEART (Reported) Furosemide (Lasix) 20 MG TABLET 1 TAB PO AD PRN SWELLING (Reported) Losartan Potassium 25 MG TABLET 1 TAB PO DAILY HEART/BP (Reported) Metoprolol Succinate 100 MG TAB.ER.24H 1 TAB PO QAM BP (Reported) Ondansetron (Zofran Odt) 4 MG TAB.RAPDIS 1 TAB SL TID PRN NAUSEA Oxycodone HCl 15 MG TABLET 1 TAB PO Q4-6H PRN FIBROMYALGIA/CHRONIC FATIGUE ( Reported) Warfarin Sodium 6 MG TABLET 1 TAB PO SuMoTuThFr BLOOD THINNER (Reported) Warfarin Sodium 3 MG TABLET 1 TAB PO WeSa BLOOD THINNER (Reported) Triage Note: 71yo FEMALE TO TRIAGE W/CO DIFF BREATHING TONITE. STATES SHE USED HER INHALER AND ONLY GOT RELIEF FOR A SHORT TIME. NO WHEEZING PRESENT. ALSO STATES "SHE HAS BILAT LE SWELLING SINCE LAST WED AFTER SHE HAD HEAT STROKE" Triage Nurses Notes Reviewed? 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 EENTM: Reports: no symptoms. Respiratory: Reports: no symptoms. Cardiovascular: Reports: no symptoms. GI: Reports: no symptoms. Genitourinary: Reports: no symptoms. Musculoskeletal: Reports: no symptoms. Skin: Reports: no symptoms. Neurological/Psychological: Reports: no symptoms. Hematologic/Endocrine: Reports: no symptoms. Immunologic/Allergic: Reports: no symptoms. All Other Systems: Reviewed and Negative Progress Plan of Care: Orders Procedure Date/time Status XRY-PORTABLE CHEST XRAY 04/28 211 Active TROPONIN LEVEL 04/28 211 Active D-DIMER 04/28 211 Active COMPREHENSIVE METABOLIC PANEL 04/28 211 Active CBC WITHOUT DIFFERENTIAL 04/28 211 Active EKG 04/28 211 Active Departure Departure Condition: Stable Referrals: EDWARD DUEÑAS,INNA Linares (PCP/Family) Departure Forms: Customer Survey General Discharge Information
--- NOTE | 2017-04-28 02:54 | ED CARDIAC/CP/PALPITATIONS ---
History of Present Illness General Chief Complaint: Dyspnea (COPD, CHF, Other) Stated Complaint: DIFF BREATHING Source: patient Exam Limitations: no limitations Vital Signs & Intake/Output Vital Signs & Intake/Output Vital Signs Date Time Temp Pulse Resp B/P B/P Pulse O2 O2 Flow FiO2 Mean Ox Delivery Rate 04/28 0509 96.8 75 18 156/77 95 Room Air 04/28 0410 95 04/28 0149 97.4 68 16 127/81 95 Room Air Allergies Coded Allergies: losartan (From COZAAR) (DIARRHEA - SEVERE PER PT 06/22/16) pineapple (MAKES RASHES THAT LOOK LIKE RINGS 06/22/16) shrimp (RASH 06/22/16) tramadol (HIVES 06/22/16) duloxetine (Severe, DIARRHEA 06/22/16) Sulfa (Sulfonamide Antibiotics) (VOMITING 06/22/16) celery (PER PT VOICE GETS HOARSE 06/22/16) ciprofloxacin (From CIPRO) (HAIRS ON ARM STAND UP PER PT 06/22/16) furazolidone (NAUSEA 06/22/16) glucosamine (NAUSEA 06/22/16) mushroom (YEAST INFECTION 06/22/16) sulfamethoxazole (From SEPTRA) (VOMITING 06/22/16) trimethoprim (VOMITING 06/22/16) Reconcile Medications Albuterol Sulfate (Proair Hfa) 90 MCG HFA.AER.AD 2 PUF INH PRN COPD (Reported ) Amlodipine (Norvasc) 2.5 MG TABLET 1 TAB PO PRN BP (Reported) Amlodipine Besylate 5 MG TABLET 1 TAB PO DAILY BP (Reported) Amoxicillin/Potassium Clav (Augmentin 875-125 Tablet) 875 MG-125 MG TABLET 1 TAB PO BID bronchitis Butalb/Acetaminophen/Caffeine (Sojtwo-Cbxzlzaz-Iehk 50-325-40) 1 EACH TABLET 1 TAB PO PRN MIGRAINE (Reported) Diazepam 10 MG TABLET 1 TAB PO Q8H PRN ANXIETY (Reported) Diazepam (Valium) 5 MG TABLET 1 TAB PO Q8P PRN PAIN Diltiazem HCl (Cartia Xt) 180 MG CAP.ER.24H 1 CAP PO BID HEART (Reported) Fluconazole (Diflucan) 150 MG TABLET 1 TAB PO ONCE yeast infection use for yeast infection and repeat in one week. Furosemide (Lasix) 20 MG TABLET 1 TAB PO AD PRN SWELLING (Reported) Losartan Potassium 25 MG TABLET 1 TAB PO DAILY HEART/BP (Reported) Metoprolol Succinate 100 MG TAB.ER.24H 1 TAB PO QAM BP (Reported) Ondansetron (Zofran Odt) 4 MG TAB.RAPDIS 1 TAB SL TID PRN NAUSEA Oxycodone HCl 15 MG TABLET 1 TAB PO Q4-6H PRN FIBROMYALGIA/CHRONIC FATIGUE ( Reported) Prednisolone 15 MG/5 ML SOLUTION 10 ML PO QDAY ASTHMA Warfarin Sodium 6 MG TABLET 1 TAB PO SuMoTuThFr BLOOD THINNER (Reported) Warfarin Sodium 3 MG TABLET 1 TAB PO WeSa BLOOD THINNER (Reported) Triage Note: 71yo FEMALE TO TRIAGE W/CO DIFF BREATHING TONITE. STATES SHE USED HER INHALER AND ONLY GOT RELIEF FOR A SHORT TIME. NO WHEEZING PRESENT. ALSO STATES "SHE HAS BILAT LE SWELLING SINCE LAST TUE AFTER SHE HAD HEAT STROKE" Triage Nurses Notes Reviewed? yes HPI: 71y F coming in for SOB x 3 days, worsening today and leg swelling x 1wk. She has PMH of COPD and is on inhaler, [id number] for OSD, and on Coumadin for A-Fib. She slept on 2 pillows daily. Today she felt her SOB is worsening, but denied CP/Lightheadedness/Vision change/Fever. She also c/o of pain on the outside of left lower leg started while shopping today. She had an episode of diarrhea on Tuesday but now resolved. Pt denied fever/night sweat/weight change/mood change/insomnia, dietary/appetite change, Ab pain, bowel movement/urinary abnormality, or other skin/ musculoskeletal/neurological disorders. (ALONDRA DUEÑAS,PJ VALDEZ) Past History Travel History Traveled to [place] past 21 day No Medical History Any Pertinent Medical History? 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 No (ALONDRA DUEÑAS,PJ VALDEZ) Review of Systems Review of Systems Constitutional: Reports: see HPI. Comments Constitutional: no significant weight change. No fatigue, fever, night sweats. Skin: no jaundice, hives, eczema, rashes, or abnormal moles. Eyes: no irritation, discharge, dry eyes, or vision change. ENMT: no sneezing, snoring, headaches, hearing loss, ear pain, frequent nosebleeds, nose/sinus problems, bleeding gums, dry mouth, mouth ulcers, oral abnormalities, teeth problems, or sore throat. Neck: no swollen glands or neck stiffness. Respiratory: cough, SOB, ,no wheezing, or coughing up blood. Cardiovascular: SOB, and leg swelling, no chest pain, arm pain on exertion. Gastrointestinal: Normal appetite. no vomiting,constipation, abdominal pain, or rectal bleeding. Genitourinary: No incontinence, hematuria, difficulty urinating, or increased frequency. Musculoskeletal: Outside left leg tenderness. no other muscle aches or weakness, no arthralgias/joint pain, or back pain; Neurologic: no loss of consciousness or balance; no weakness, numbness, seizures , or dizziness. Psych: no depression, anxiety, sleep disturbances, homicidal thoughts, or suicidal thoughts. (ALONDRA DUEÑAS,PJ VALDEZ) Physical Exam Physical Exam General Appearance: no apparent distress, alert, awake Head: atraumatic, normal appearance Eyes: Left: normal appearance, PERRL, EOMI. Ears, Nose, Throat: hearing grossly normal Neck: normal inspection, supple, full range of motion Respiratory: chest non-tender, crackles Cardiovascular: regular rate/rhythm Gastrointestinal: soft, non-tender, no organomegaly Back: normal inspection Extremities: calf tenderness, swelling Neurologic/Psych: awake, alert, oriented x 3 Skin: intact, normal color, warm/dry Core Measures ACS in differential dx? No Severe Sepsis Present: No Septic Shock Present: No (ALONDRA DUEÑAS,PJ VALDEZ) Progress Differential Diagnosis: CHF/pulm edema, pulmonary embolism, COPD Exacerbation Diagnostic Imaging: Discussed w/RAD: Radiology Read. CXR Impression: no acute abnormality, PATIENT: BERTHA CARTER PRESENT AGE: 71 PATIENT ACCOUNT NO: [id number] : 47 LOCATION: [facility] ORDERING PHYSICIAN: LAWRENCE LACEY MD SERVICE DATE: 04/28/17 EXAM TYPE: RAD - XRY-PORTABLE CHEST XRAY EXAMINATION: XR PORTABLE CHEST CLINICAL INFORMATION: Dyspnea COMPARISON: 03/02/2017 TECHNIQUE: Portable frontal view of the chest was obtained. FINDINGS: There is redemonstrated elevation of the right hemidiaphragm, likely with adjacent basilar atelectasis. The remainder of the lungs appears clear. No evidence of pneumothorax, significant pleural effusion, or overt pulmonary edema. The cardiac silhouette remains prominent, similar to prior. Calcification is present at the aortic arch. No acute osseous findings are seen. IMPRESSION: No significant change from 03/02/2017. Redemonstrated right hemidiaphragm elevation. DICTATED BY: LAWRENCE KELLY MD DATE/TIME DICTATED:04/28/17321 CHARGE AUDITOR:BRONSON DATE/TIME TRANSCRIBED:321 CONFIDENTIAL, DO NOT COPY WITHOUT APPROPRIATE AUTHORIZATION. < Electronically signed in Other Vendor System> SIGNED BY: LAWRENCE KELLY MD 04/28/17326 Initial ED EKG: normal axis, normal intervals, normal p-waves, normal QRS complex, normal sinus rhythm (ALONDRA DUEÑAS,PJ VALDEZ) Plan of Care: Orders Procedure Date/time Status URINALYSIS 04/28 332 Complete PARTIAL THROMBOPLASTIN TIME 04/28 330 Complete PROTHROMBIN TIME 04/28 330 Complete Add-on Test (ER Only) 04/28 0240 Active TROPONIN LEVEL 04/28 211 Complete COMPREHENSIVE METABOLIC PANEL 04/28 211 Complete CBC WITHOUT DIFFERENTIAL 04/28 211 Complete EKG 04/28 211 Active Laboratory Tests 04/28/17336: Urine Color STRAW, Urine Clarity HAZY H, Urine pH 6.0, Ur Specific Mcclure 1.010, Urine Protein TRACE H, Urine Ketones NEG, Urine Nitrite NEG, Urine Bilirubin NEG, Urine Urobilinogen 0.2, Ur Leukocyte Esterase NEG, Ur Microscopic SEDIMENT EXAMINED, Urine RBC 1-3, Urine WBC RARE, Ur Epithelial Cells MANY H, Urine Bacteria FEW H, Urine Mucus FEW, Urine Hemoglobin NEG, Urine Glucose NEG 04/28/17 0300: Anion Gap 9, Estimated GFR > 60, BUN/Creatinine Ratio 23.3, Glucose 86, Calcium 9.9, Total Bilirubin 0.5, AST 21, ALT 24, Alkaline Phosphatase 112, Troponin I < 0.01, Total Protein 6.9, Albumin 3.9, Globulin 3.0, Albumin/Globulin Ratio 1.3, PT 27.9 H, INR 2.68 H, APTT 46 H, CBC w Diff MAN DIFF ORDERED, RBC 4.36, MCV 97.5, MCH 32.1 H, RDW 14.1, MPV 10.6 H, Gran % 68.4, Lymphocytes % 21.5, Monocytes % 7.1, Eosinophils % 2.0, Basophils % 1.0, Absolute Granulocytes 7.5 H, Segmented Neutrophils 63, Absolute Lymphocytes 2.4, Lymphocytes 22, Monocytes 12 H, Absolute Monocytes 0.8 H, Eosinophils 3, Absolute Eosinophils 0.2, Absolute Basophils 0.1, Platelet Estimate ADEQUATE, Polychromasia 1+, Hypochromic-Microcytic 1+, Poikilocytosis 1+, Ovalocytes 1+, Stomatocytes FEW, PUBS MCHC 32.9 L, Fld Total RBCs Counted 100 04/28/17 0211: D-Dimer High Sensitivty Cancelled 04/28/2017 0352 Pt is currently stable and all labs/imaging returned unremarkable. We would consider COPD exacerbation at this point and will treat w/ Albuterol and Ipratropium. Will proceed w/ EKG and UA for further evaluation. 04/28/2017 0500 Pt's EKG's normal. SHe felt better after nebulizer therapy. Discussed w/ Dr. Lcaey that her symptoms are more respiratory. Pt is stable to discharge. (ALONDRA DUEÑAS,PJ VALDEZ) Departure Departure Disposition: HOME OR SELF CARE Condition: Stable Clinical Impression Primary Impression: COPD exacerbation Referrals: EDWARD DUEÑAS,INNA Linares (PCP/Family) Additional Instructions: Please be compliant with your medications and follow up with your primary care doctor for current symptoms. Please come back to ER if symptom worsens. Departure Forms: Customer Survey General Discharge Information Prescriptions: Current Visit Scripts Prednisolone 10 ML PO QDAY #50 ML Amoxicillin/Potassium Clav (Augmentin 875-125 Tablet) 1 TAB PO BID #14 TAB Fluconazole (Diflucan) 1 TAB PO ONCE #2 TAB use for yeast infection and repeat in one week. (ALONDRA DUEÑAS,PJ VALDEZ) PA/FIELD APPLICATIONS SPECIALIST Co-Sign Statement Statement: ED Attending supervision documentation- [x] I saw and evaluated the patient. I have also reviewed all the pertinent lab results and diagnostic results. I agree with the findings and the plan of care as documented in the PA's/FIELD APPLICATIONS SPECIALIST's documentation. 02 SAT stable in ED... mild rhonchi to my exam... pt merits home steroids and antiobics... no need to admit at this point. [] I have reviewed the ED Record and agree with the PA's/FIELD APPLICATIONS SPECIALIST's documentation. [] Additions or exceptions (if any) to the PAs/FIELD APPLICATIONS SPECIALIST's note and plan are summarized below: [] (MANAV DUEÑAS,LAWRENCE Gonzalez) Critical Care Note Critical Care Note Critical Care Time: non-applicable (ALONDRA DUEÑAS,PJ VALDEZ)
[2017-04-28 03:09] LABS: ABSOLUTE BASOPHIL COUNT 0.1 /CUMM (0.0-0.2); ABSOLUTE EOSINOPHIL COUNT 0.2 /CUMM (0.0-0.7); ABSOLUTE GRANULOCYTE CT 7.5 /CUMM (1.4-6.5); ABSOLUTE LYMPH COUNT 2.4 /CUMM (1.2-3.4); ABSOLUTE MONOCYTE COUNT 0.8 /CUMM (0.10-0.60); GRANULOCYTE % 68.4 % (42.2-75.2); HEMATOCRIT 42.5 % (37-47); MEAN CORPUSCULAR HGB 32.1 PG (27.0-31.0); MEAN CORPUSCULAR HGB CONC 32.9 G/DL (33.0-37.0); MEAN CORPUSCULAR VOLUME 97.5 FL (81.0-99.0); MEAN PLATELET VOLUME 10.6 FL (7.4-10.4); PLATELET COUNT 165 /CUMM (130-400); RBC DISTRIBUTION WIDTH 14.1 % (11.5-14.5); RED BLOOD CELL CT 4.36 /CUMM (4.20-5.40)
[2017-04-28 03:18] LABS: PT 27.9 SEC (9.4-12.5); PTT 46 SEC (25-37)
--- NOTE | 2017-04-28 03:27 | RADIOLOGY REPORT ---
EXAMINATION: XR PORTABLE CHEST CLINICAL INFORMATION: Dyspnea COMPARISON: 03/02/2017 TECHNIQUE: Portable frontal view of the chest was obtained. FINDINGS: There is redemonstrated elevation of the right hemidiaphragm, likely with adjacent basilar atelectasis. The remainder of the lungs appears clear. No evidence of pneumothorax, significant pleural effusion, or overt pulmonary edema. The cardiac silhouette remains prominent, similar to prior. Calcification is present at the aortic arch. No acute osseous findings are seen. IMPRESSION: No significant change from 03/02/2017. Redemonstrated right hemidiaphragm elevation.
[2017-04-28] MEDS ORDERED: AUGMENTIN 875-1 EACH PO (04:47)
[2017-04-28] MEDS ORDERED: PREDNISOLO15 MG/5 M4 PO (04:47)
[2017-04-28] MEDS ORDERED: DIFLUCAN150 M1 PO (04:47)
[2017-04-28 05:09] VITALS: BP 156/77
== END 2017-04-28 05:11 ==
LOC: ERH 00:28
PROVIDERS: Pediatrics
DX: J44.1 Chronic obstructive pulmonary disease with (acute) exacerbation (principal); Z87.891 Personal history of nicotine dependence
CPT/HCPCS: 1263; 81001; J3490

== ENCOUNTER 2017-10-25 19:44 | Inpatient (IN) | payer OTHER ==
[~2017-10-25] VITALS: Ht 167.6 cm; Wt 119.7 kg
[~2017-10-25 19:44] MED LIST changes: +AUGMENTIN 875-1 EACH PO; +MONTELUKAST SOD10 M1 PO; +OXYCODONE HCL10 M2 PO; +POTASSIUM CHLO10 ME5 PO; +PREDNISOLO15 MG/5 M4 PO; +PREDNISONE10 M2 PO
--- NOTE | 2017-10-25 20:45 | ED MVC/FALL/TRAUMA COMPLAINT ---
History of Present Illness General Chief Complaint: Fall Stated Complaint: BIBA FOR FALL Source: patient, old records Exam Limitations: poor historian Vital Signs & Intake/Output Vital Signs & Intake/Output Vital Signs Date Time Temp Pulse Resp B/P B/P Pulse O2 O2 Flow FiO2 Mean Ox Delivery Rate 10/25 2253 92 Nasal 3.5L Cannula 10/25 2202 98.5 78 24 135/72 91 Nasal 3.5L Cannula 10/25 Nasal 4.0L Cannula 10/25 1956 98.0 81 22 139/60 91 Nasal 4.0L Cannula ED Intake and Output 10/26 0000 10/25 1200 Intake Total 0 Output Total Balance 0 Intake, Oral 0 Allergies Coded Allergies: losartan (From COZAAR) (DIARRHEA - SEVERE PER PT 06/22/16) pineapple (MAKES RASHES THAT LOOK LIKE RINGS 06/22/16) shrimp (RASH 06/22/16) tramadol (HIVES 06/22/16) duloxetine (Severe, DIARRHEA 06/22/16) Sulfa (Sulfonamide Antibiotics) (VOMITING 06/22/16) celery (PER PT VOICE GETS HOARSE 06/22/16) ciprofloxacin (From CIPRO) (HAIRS ON ARM STAND UP PER PT 06/22/16) furazolidone (NAUSEA 06/22/16) glucosamine (NAUSEA 06/22/16) mushroom (YEAST INFECTION 06/22/16) sulfamethoxazole (From SEPTRA) (VOMITING 06/22/16) trimethoprim (VOMITING 06/22/16) Reconcile Medications Albuterol Sulfate (Proair Hfa) 90 MCG HFA.AER.AD 2 PUF INH PRN COPD (Reported ) Amlodipine (Norvasc) 2.5 MG TABLET 1 TAB PO PRN BP (Reported) Butalb/Acetaminophen/Caffeine (Ugntud-Asmqywsc-Fxkg 50-325-40) 1 EACH TABLET 1 TAB PO PRN MIGRAINE (Reported) Diazepam 10 MG TABLET 1 TAB PO BID PRN ANXIETY (Reported) Diltiazem HCl (Cartia Xt) 180 MG CAP.ER.24H 1 CAP PO BID HEART (Reported) Furosemide (Lasix) 20 MG TABLET 1-2 TAB PO AD PRN SWELLING (Reported) Metoprolol Succinate 100 MG TAB.ER.24H 1 TAB PO BID BP (Reported) Montelukast Sodium 10 MG TABLET 1 TAB PO DAILY ALLERGIES (Reported) Oxycodone HCl 10 MG TABLET 1 TAB PO Q8H PRN PAIN (Reported) Potassium Chloride 10 MEQ TAB.ER.PRT 1 TAB PO AD PRN SUPPLEMENT (Reported) Prednisone 10 MG TABLET 1 TAB PO TAPER COPD Warfarin Sodium 6 MG TABLET 1 TAB PO SuMoTuThFr BLOOD THINNER (Reported) Warfarin Sodium 3 MG TABLET 1 TAB PO WeSa BLOOD THINNER (Reported) Triage Note: 71 Y/O FEMALE TO ED 9 VIA EMS STRETCHER FROM HOME WITH C/O MULTIPLE FALLS. PATIENT REPORTS AWAKING ON THE FLOOR TONIGHT BY HER TV AFTER A FALL SHE CANNOT REMEMBER. EARLIER FALL THIS MORNING OUT OF HER BED. PATIENT USED [facility] TO REQUEST HELP. DENIES INJURY. 02 DEPENDENT. Triage Nurses Notes Reviewed? yes Onset: Morning Duration: hour(s): Timing: single episode today Severity: moderate Injuries/Fall Location: no injury HPI: Patient presents for evaluation of injuries sustained status post fall from her bed followed by an episode of awakening on the floor by her bed later during the day. The cause of that incident is unclear at this point. At that point the patient used her Lif[employer] to get to the emergency department. Patient denies tongue bite tremors or incontinence. Patient denies head trauma or currently other injury. Patient is a poor historian regarding today's events. (Pita DUEÑAS,Sergio Linares) Past History Travel History Traveled to [place] past 21 day No Medical History Any Pertinent Medical History? 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 No (Pita DUEÑAS,Sergio Linares) Review of Systems Review of Systems Constitutional: Reports: no symptoms. Eyes: Reports: no symptoms. Ears, Nose, Throat, Mouth: Reports: no symptoms. Respiratory: Reports: no symptoms. Cardiovascular: Reports: palpitations. Gastrointestinal/Abdominal: Reports: no symptoms. Genitourinary: Reports: no symptoms. Musculoskeletal: Reports: no symptoms. Skin: Reports: no symptoms. Neurological/Psychological: Reports: no symptoms. All Other Systems: Reviewed and Negative (Pita DUEÑAS,Sergio Linares) Physical Exam Physical Exam General Appearance: see below Comments: Gen.: Well-nourished, well-developed, no acute respiratory distress. Head: Normocephalic, atraumatic, nontender. Eyes: Normal inspection bilaterally, maribel, EOMI Ears: Normal inspection bilaterally Nose: Normal inspection Throat/mouth : Moist mucosa Neck: Supple, full range of motion, no goiter, nontender Heart: Regular rate and rhythm, no murmurs rubs or gallops Lungs: Scattered end expiratory wheezing bilaterally with normal air entry Chest: Nontender Back: Normal range of motion, nontender Abdomen: Soft, nontender, nondistended, normal bowel sounds Pelvis: Stable and nontender Extremities: Normal range of motion grossly, no tenderness, no cyanosis, 1+ bilateral lower extremity edema Neurologic: Cranial nerves grossly intact, speech is clear Skin: warm and dry and without ecchymoses or soft tissue swelling or erythema Psychiatric: Calm, cooperative, no apparent delusions or hallucinations Core Measures ACS in differential dx? No CVA/TIA Diagnosis No Sepsis Present: No Sepsis Focused Exam Completed? No (Pita DUEÑAS,Sergio Linares) Progress Differential Diagnosis: abd injury, C/T/L spine injury, pelvis injury, dysrhythmia, syncope, mechanical fall Plan of Care: Orders Procedure Date/time Status Nothing by Mouth 10/26 B Active Saline Lock 10/[address] in observation 10/26 32 Active Misc Message 10/26 32 Active ED Holding Orders 10/26 003 Active Vital Signs 10/26 003 Active Code Status 10/26 003 Active AEROSOL (GEN) 10/25 2248 Complete URINALYSIS 10/25 2055 Complete TSH REFLEX 10/25 2052 Active Saline Lock 10/25 2043 Active MISTAKE 10/25 2043 Complete Telemetry/Porcelain Enamel Repairer 10/25 2043 Active TROPONIN LEVEL 10/25 2043 Active COMPREHENSIVE METABOLIC PANEL 10/25 2043 Active CBC WITHOUT DIFFERENTIAL 10/25 2043 Complete EKG 10/25 2043 Active Current Medications Sig/Randa Start time Last Medication Dose Stop Time Status Admin Furosemide 40 MG ONCE ONE 10/26 44 UNVr (Lasix) 10/26 45 Laboratory Tests 10/25/17 2100: Urine Color YEL, Urine Clarity HAZY H, Urine pH 6.0, Ur Specific [place] >= 1.030, Urine Protein 30 H, Urine Ketones NEG, Urine Nitrite NEG, Urine Bilirubin NEG, Urine Urobilinogen 0.2, Ur Leukocyte Esterase NEG, Ur Microscopic SEDIMENT EXAMINED, Urine RBC RARE, Urine WBC 1-3 H, Ur Epithelial Cells MANY H , Urine Bacteria MANY H, Hyaline Casts RARE H, Granular Casts RARE H, Urine Mucus FEW, Urine Hemoglobin TRACE-INTACT, Urine Glucose NEG 10/25/172052: Anion Gap 11, Estimated GFR 55 L, BUN/Creatinine Ratio 28.0 H, Glucose 91, Calcium 9.4, Total Bilirubin 0.4, AST 18, ALT 32, Alkaline Phosphatase 112, Troponin I < 0.01, Total Protein 6.9, Albumin 3.8, Globulin 3.1, Albumin/ Globulin Ratio 1.2, TSH &T3 &Free T4 Intrp Pending, CBC w Diff NO MAN DIFF REQ, RBC 3.81 L, MCV 101.1 H, MCH 32.6 H, RDW 15.7 H, MPV 10.5 H, Gran % 76.1 H , Lymphocytes % 13.7 L, Monocytes % 8.8, Eosinophils % 1.0, Basophils % 0.4, Absolute Granulocytes 9.1 H, Absolute Lymphocytes 1.6, Absolute Monocytes 1.0 H, Absolute Eosinophils 0.1, Absolute Basophils 0, PUBS MCHC 32.2 L Diagnostic Imaging: Discussed w/RAD: CT Scan. Radiology Impression: PATIENT: BERTHA CARTER PRESENT AGE: 71 PATIENT ACCOUNT NO: [id number] : 47 LOCATION: [facility] ORDERING PHYSICIAN: Sergio Lema MD SERVICE DATE: 10/25/17-2043 EXAM TYPE : CAT - CT HEAD WO IV CONTRAST EXAMINATION: CT HEAD WITHOUT CONTRAST CLINICAL INFORMATION: Occult head trauma. Awoke on the floor. Possible syncope. COMPARISON: 03/30/2017. 05/22/2012 TECHNIQUE: Contiguous axial imaging was performed from the skull base to vertex without intravenous administration of contrast. DLP: 777 mGy-cm FINDINGS: There is some motion on the acquisition. There is no evidence of acute intracranial hemorrhage or territorial infarction. No abnormal mass effect or midline shift is seen. Davison to white matter differentiation is well preserved. No extra-axial fluid collections are identified. The ventricles are normal in size. There is no abnormal attenuation within the brain parenchyma. No acute osseous or soft tissue abnormalities. There is a stable well marginated lucent focus in the right parietal bone measuring 5 mm, unchanged dating back to 2011. There is a stable left parasagittal frontal osteoma measuring 9 mm along the outer table, incidentally. The mastoid air cells, middle ear cavities, and visualized portions of the paranasal sinuses are well aerated. IMPRESSION: No acute intracranial pathology. DICTATED BY: Jacob Strauss MD DATE/TIME DICTATED:10/25/172112 WOMEN'[employer] LACROSSE COACH:BRONSON DATE/TIME TRANSCRIBED:10/25/172112 CONFIDENTIAL, DO NOT COPY WITHOUT APPROPRIATE AUTHORIZATION. <Electronically signed in Other Vendor System> SIGNED BY: Jacob Strauss MD 10/25/172120, PATIENT: BERTHA CARTER PRESENT AGE: 71 PATIENT ACCOUNT NO: [id number] : 47 LOCATION: [facility] ORDERING PHYSICIAN: Sergio Lema MD SERVICE DATE: 10/25/17 EXAM TYPE: CAT - CT LUMB SPINE WO IV CONTRAST EXAMINATION: CT LUMBAR SPINE WITHOUT CONTRAST CLINICAL INFORMATION: 71-year-old female with possible trauma. Complaint of low back pain. COMPARISON: CT of the abdomen and pelvis on 05/08/2017. TECHNIQUE: Helical non-contrast CT images were obtained through the lumbar spine and 1.25 and 2.5 mm axial reconstructions were reviewed along with sagittal and coronal MPRs. DLP: 1071 mGy-cm FINDINGS: Vertebral height alignment are preserved. The unusual sclerotic bone lesion in L2 is unchanged in size and appearance. Hypertrophic spurs arise from the lumbar vertebral bodies. There is facet arthropathy throughout the lumbosacral spine. The disc spaces are well-preserved. No fractures are detected. There is mild degenerative change involving both SI joints. SPINAL LEVELS: T12-L1: Annular bulge, left neural foramen. L1-L2: No foraminal impingement. L2-L3: Normal disc. L3-L4: Normal disc. L4-L5: No foraminal impingement. L5-S1: No foraminal impingement. The aorta is ectatic and calcified. Abundant renal sinus fat is seen in both kidneys. No paraspinal hematoma formation is seen. IMPRESSION: No evidence of fracture or subluxation. Facet arthritis as described. DICTATED BY: Nikhil Adams MD DATE/TIME DICTATED:10/25/172113 WOMEN'S LACROSSE COACH: BRONSON DATE/TIME TRANSCRIBED:10/25/172113 CONFIDENTIAL, DO NOT COPY WITHOUT APPROPRIATE AUTHORIZATION. <Electronically signed in Other Vendor System> SIGNED BY: Nikhil Adams MD 10/25/172128 Initial ED EKG: rate (variable), AFIB, nonspecific ST T wave chg Prior EKG: unchanged Comments: 10/25/2017 10:19:53 PM I have updated Ana Maria on her test results. She states that she is having some trouble breathing and auscultation of lungs reveals globally diminished breath sounds and scattered end expiratory wheezing and crackles posteriorly. Oxygen saturation is ranging from 89-91% on 3-1/2 L via nasal cannula. I will order a nebulizer and a chest x-ray. 10/25/2017 11:27:20 PM patient signed out to Dr. Lacey at shift tire changer. (Pita DUEÑAS,Sergio Linares) CXR Impression: volume overload vs atelectasis. (appears worse than prior). (Deepthi DUEÑAS,Tate Gonzalez) Departure Departure Disposition: STILL A PATIENT Condition: Stable Clinical Impression Primary Impression: Back strain Secondary Impressions: Chronic pain syndrome, COPD exacerbation, Fall Referrals: Edgar Suazo MD (PCP/Family) Departure Forms: Customer Survey General Discharge Information (Sergio Lema MD) Observation Note Spoke With: Edgar Suazo MD Physician Advisor Notified: SERGIO MAYA DO Place Patient In: Non-ED OBS Care Area Rationale for Observation: My rational for observation is as follows . pt with chf/volume overload, now with increased 02 requirement 3-4 liters to maintain 02 sat >90%. Pt desats while sleeping. Pt merits iv lasix, cards eval in AM, close monitoring, serial trops/eks. (Deepthi DUEÑAS,Tate Gonzalez)
[2017-10-25 21:05] LABS: ABSOLUTE BASOPHIL COUNT 0 /CUMM (0.0-0.2); ABSOLUTE EOSINOPHIL COUNT 0.1 /CUMM (0.0-0.7); ABSOLUTE GRANULOCYTE CT 9.1 /CUMM (1.4-6.5); ABSOLUTE LYMPH COUNT 1.6 /CUMM (1.2-3.4); BASOPHIL % 0.4 % (0.0-2.0); HEMATOCRIT 38.6 % (37-47); MEAN CORPUSCULAR HGB 32.6 PG (27.0-31.0); MEAN CORPUSCULAR HGB CONC 32.2 G/DL (33.0-37.0); MEAN CORPUSCULAR VOLUME 101.1 FL (81.0-99.0); MEAN PLATELET VOLUME 10.5 FL (7.4-10.4); RBC DISTRIBUTION WIDTH 15.7 % (11.5-14.5); RED BLOOD CELL CT 3.81 /CUMM (4.20-5.40); WHITE BLOOD CELL COUNT 11.9 /CUMM (4.8-10.8)
--- NOTE | 2017-10-25 21:21 | CT SCAN REPORT ---
EXAMINATION: CT HEAD WITHOUT CONTRAST CLINICAL INFORMATION: Occult head trauma. Awoke on the floor. Possible syncope. COMPARISON: 03/30/2017. 05/22/2012 TECHNIQUE: Contiguous axial imaging was performed from the skull base to vertex without intravenous administration of contrast. DLP: 777 mGy-cm FINDINGS: There is some motion on the acquisition. There is no evidence of acute intracranial hemorrhage or territorial infarction. No abnormal mass effect or midline shift is seen. Davison to white matter differentiation is well preserved. No extra-axial fluid collections are identified. The ventricles are normal in size. There is no abnormal attenuation within the brain parenchyma. No acute osseous or soft tissue abnormalities. There is a stable well marginated lucent focus in the right parietal bone measuring 5 mm, unchanged dating back to 2011. There is a stable left parasagittal frontal osteoma measuring 9 mm along the outer table, incidentally. The mastoid air cells, middle ear cavities, and visualized portions of the paranasal sinuses are well aerated. IMPRESSION: No acute intracranial pathology.
[2017-10-25 21:26] LABS: GRANULOCYTE % 76.1 % (42.2-75.2); PLATELET COUNT 190 /CUMM (130-400)
--- NOTE | 2017-10-25 21:29 | CT SCAN REPORT ---
EXAMINATION: CT LUMBAR SPINE WITHOUT CONTRAST CLINICAL INFORMATION: 71-year-old female with possible trauma. Complaint of low back pain. COMPARISON: CT of the abdomen and pelvis on 05/08/2017. TECHNIQUE: Helical non-contrast CT images were obtained through the lumbar spine and 1.25 and 2.5 mm axial reconstructions were reviewed along with sagittal and coronal MPRs. DLP: 1071 mGy-cm FINDINGS: Vertebral height alignment are preserved. The unusual sclerotic bone lesion in L2 is unchanged in size and appearance. Hypertrophic spurs arise from the lumbar vertebral bodies. There is facet arthropathy throughout the lumbosacral spine. The disc spaces are well-preserved. No fractures are detected. There is mild degenerative change involving both SI joints. SPINAL LEVELS: T12-L1: Annular bulge, left neural foramen. L1-L2: No foraminal impingement. L2-L3: Normal disc. L3-L4: Normal disc. L4-L5: No foraminal impingement. L5-S1: No foraminal impingement. The aorta is ectatic and calcified. Abundant renal sinus fat is seen in both kidneys. No paraspinal hematoma formation is seen. IMPRESSION: No evidence of fracture or subluxation. Facet arthritis as described.
--- NOTE | 2017-10-25 22:49 | RADIOLOGY REPORT ---
EXAMINATION: CHEST 1 VIEW CLINICAL INFORMATION: Crackles. COMPARISON: 09/25/2017. TECHNIQUE: An AP view of the chest is provided. FINDINGS: The cardiac silhouette is prominent, though stable. There is persistent elevation of the right hemidiaphragm. There is interstitial prominence again noted throughout both lungs. There is airspace disease at the right lung base and left perihilar infiltration, increased from previous exam. The osseous structures are stable. 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 Superimposed multifocal airspace disease which could correspond to atelectasis, though a developing infiltrate cannot be excluded. Recommendation is for a followup chest series to be obtained following treatment and/or resolution of symptoms to assure resolution of this appearance.
--- NOTE | 2017-10-26 05:33 | History & Physical ---
See Addendum General Information and HPI MD Statement: I have seen and personally examined BERTHA CARTER and documented this H&P. The patient is a 71 year old F who presented with a patient stated chief complaint of [fall]. Source of Information: patient, old records, EMS Exam Limitations: unable to give history, confusion History of Present Illness: This is a 71 yo female with PMH of atrial fibrillation on Coumadin, HFpEF, COPD on 2 L of oxygen, DICK not on CPAP, history of parotid cancer, fibromyalgia, schizophrenia, and PTSD, and right breast cancer status post mastectomy 15 years ago, who comes in for CC fall. When I spoke to patient she was slightly confused and unable to maintain a linear conversation. Couldnt get much history from her. Per ED notes, apparently, patient reported awakening up on the floor next to her TV after a fall she could not remember. She also endorsed an earlier fall in the morning as she fell out of bed. She used to [employer] for help. When I spoke to pt she stated that shed been short of breath since discharge from [facility] for COPD exacerbation about a month ago. She cannot remember much about the fall other than it happened twice today. She does endorse or shortness of breath when walking and she states that she is sleeping with head of bed more upright. She denies any chest pain but does endorse palpitations. She endorses 20 years of 2 pack smoking history and living with smokers with significant exposure to secondhand smoke. Denies alcohol or IV drug abuse. ROS pertinent for shortness of breath, orthopnea, palpitations, fall, loss of consciousness, denies any headache, nausea, vomiting, diarrhea, chest pain, loss of bladder or bowel function, or witnessed episode of seizure. Allergies/Medications Allergies: Coded Allergies: losartan (From COZAAR) (DIARRHEA - SEVERE PER PT 06/22/16) pineapple (MAKES RASHES THAT LOOK LIKE RINGS 06/22/16) shrimp (RASH 06/22/16) tramadol (HIVES 06/22/16) duloxetine (Severe, DIARRHEA 06/22/16) Sulfa (Sulfonamide Antibiotics) (VOMITING 06/22/16) celery (PER PT VOICE GETS HOARSE 06/22/16) ciprofloxacin (From CIPRO) (HAIRS ON ARM STAND UP PER PT 06/22/16) furazolidone (NAUSEA 06/22/16) glucosamine (NAUSEA 06/22/16) mushroom (YEAST INFECTION 06/22/16) sulfamethoxazole (From SEPTRA) (VOMITING 06/22/16) trimethoprim (VOMITING 06/22/16) Home Med list Albuterol Sulfate (Proair Hfa) 90 MCG HFA.AER.AD 2 PUF INH PRN COPD (Reported ) Amlodipine (Norvasc) 2.5 MG TABLET 1 TAB PO PRN BP (Reported) Butalb/Acetaminophen/Caffeine (Lbbbhn-Tdkyujwi-Lfll 50-325-40) 1 EACH TABLET 1 TAB PO PRN MIGRAINE (Reported) Diazepam 10 MG TABLET 1 TAB PO BID PRN ANXIETY (Reported) Diltiazem HCl (Cartia Xt) 180 MG CAP.ER.24H 1 CAP PO BID HEART (Reported) Furosemide (Lasix) 20 MG TABLET 1-2 TAB PO AD PRN SWELLING (Reported) Metoprolol Succinate 100 MG TAB.ER.24H 1 TAB PO BID BP (Reported) Montelukast Sodium 10 MG TABLET 1 TAB PO DAILY ALLERGIES (Reported) Oxycodone HCl 10 MG TABLET 1 TAB PO Q8H PRN PAIN (Reported) Potassium Chloride 10 MEQ TAB.ER.PRT 1 TAB PO AD PRN SUPPLEMENT (Reported) Prednisone 10 MG TABLET 1 TAB PO TAPER COPD Warfarin Sodium 6 MG TABLET 1 TAB PO SuMoTuThFr BLOOD THINNER (Reported) Warfarin Sodium 3 MG TABLET 1 TAB PO WeSa BLOOD THINNER (Reported) Compliance With Home Meds: UNKNOWN Past History Travel History Traveled to [place] past 21 day No Medical History Neurological: vertigo EENT: salivary gland disorders, L SALIVARY GLAND CANCER Cardiovascular: AFIB, hypertension Respiratory: asthma, COPD, obstructive sleep apnea, PLEURISY O2 2L DEP PRN AND @ NITE Gastrointestinal: irritable bowel syndrome Hepatic: NONE Renal: UTI Musculoskeletal: fibromyalgia, osteoarthritis Psychiatric: schizophrenia, PTSD Endocrine: NONE Blood Disorders: NONE Cancer(s): LUNG, R BREAST CA LEFT SALIVARY GLAND CA 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 no Review of Systems Review of Systems Constitutional: Reports: see HPI. Exam & Diagnostic Data Last 24 Hrs of Vital Signs/I&O Vital Signs Date Time Temp Pulse Resp B/P B/P Pulse O2 O2 Flow FiO2 Mean Ox Delivery Rate 10/26 0531 87 96 10/26 0528 79 98 10/26 0410 79 22 122/78 93 Nasal 2.0L Cannula 10/26 0340 90 93 10/26 0141 98.0 77 30 133/72 89 Nasal 3.0L Cannula 10/25 2254 92 Nasal 3.5L Cannula 10/25 2202 98.5 78 24 135/72 91 Nasal 3.5L Cannula 10/25 2015 92 Nasal 4.0L Cannula 10/25 1956 98.0 81 22 139/60 91 Nasal 4.0L Cannula Intake & Output 10/26 0800 10/26 0000 10/25 1600 Intake Total 0 Output Total Balance 0 Intake, Oral 0 Physical Exam General Appearance Alert, Mild Distress Skin No Significant Lesion Last 24 Hrs of Labs/Efren: Laboratory Tests 10/26/17 0410: Troponin I < 0.01 10/25/17 2100: Urine Color YEL, Urine Clarity HAZY H, Urine pH 6.0, Ur Specific [place] >= 1.030, Urine Protein 30 H, Urine Ketones NEG, Urine Nitrite NEG, Urine Bilirubin NEG, Urine Urobilinogen 0.2, Ur Leukocyte Esterase NEG, Ur Microscopic SEDIMENT EXAMINED, Urine RBC RARE, Urine WBC 1-3 H, Ur Epithelial Cells MANY H , Urine Bacteria MANY H, Hyaline Casts RARE H, Granular Casts RARE H, Urine Mucus FEW, Urine Hemoglobin TRACE-INTACT, Urine Glucose NEG 10/25/172052: Anion Gap 11, Estimated GFR 55 L, BUN/Creatinine Ratio 28.0 H, Glucose 91, Calcium 9.4, Total Bilirubin 0.4, AST 18, ALT 32, Alkaline Phosphatase 112, Troponin I < 0.01, Total Protein 6.9, Albumin 3.8, Globulin 3.1, Albumin/ Globulin Ratio 1.2, TSH &T3 &Free T4 Intrp 0.653, CBC w Diff NO MAN DIFF REQ, RBC 3.81 L, MCV 101.1 H, MCH 32.6 H, RDW 15.7 H, MPV 10.5 H, Gran % 76.1 H , Lymphocytes % 13.7 L, Monocytes % 8.8, Eosinophils % 1.0, Basophils % 0.4, Absolute Granulocytes 9.1 H, Absolute Lymphocytes 1.6, Absolute Monocytes 1.0 H, Absolute Eosinophils 0.1, Absolute Basophils 0, PUBS MCHC 32.2 L Microbiology 10/26 0531 URINE ROUT: Urine Culture - COLB 10/26 0140 URINE ROUT: Urine Culture - RECD Assessment/Plan Assessment: Physical exam: HEENT: Pupils reactive to light; extraocular muscles intact. Mucous membranes very dry. Lungs: Diminished movement in all lung hernandez with crackles and rhonchi present. There is some light wheeze on exhalation at the bases. Cardiovascular: Irregularly irregular. Could not appreciate any murmurs. Abdomen: Soft obese, nontender to palpation. Extremities: 2+ edema ASSESSMENT: This is a 71-year-old female with past medical history significant for COPD, CHF, fibromyalgia, atrial fibrillation, who comes in for chief complaint of fall. Upon taking a circular history an ABG was ordered showing pH 7.28, PCO2 90, and O2 48 and Bicarb 42. She was subsequently transitioned from 3 L nasal cannula to BiPAP. Will admit patient to telemetry floor for further treatment of hypoxic and hypercarbic respiratory failure and syncope. PLAN: 1. Hypoxic hypercarbic respiratory failure: Patient has ABG with evidence of severe hypoxia and hypercarbia. Cxr showing evidence of vascular congestion with some possibly developing infiltrates. Given that pt is desatting with elevated WBC of 11.9 will empirically cover for PNA. I have given total of 40 of IV Lasix. Note that patient got her home dose of oxycodone in ED which could 've added to the respiratory depression * TRC * ins and outs * daily weights * Currently NPO but consdier fluid restriction once mentating well * repeat ABG * troponin and EKG 2 * echocardiogram * cardiology consult * steroids; I gave 125 IV Solumedrol x1. Re-assess in AM. * Ceftriaxone * Azithromycin * Legionella * Influenza swab * Hold Narcotics * Consider pulm consult * Check BNP * Added utox. * Narcan x1 * Please verify home meds 2. AFIB: * Monitor INR * Con't Coumadin * Continuing home cardizem * Continuing home metoprolol 3. Syncope/fall: Pt has two falls and can't remember what happened in between. She was noted to have falls during previous admission. It was noted that she had oxydodone and Diazepam prescribed at home. Likely component of poly pharmacy resulting in falls. Additionally could be 2/[address] negative. * ekg trops * once metabolic derangements are corrected and if pt still confused then consider neuro consult * echo * Avoid sedating meds 4. HTN: * Holding her anti-hypertensives * Consider re-starting in AM PT WAS OBTUNDED AND THERE WAS NO ACCESS TO [employer] OVERNIGHT SO I MADE HER FULL CODE. PLEASE VERIFY CODE STATUS IN AM! As Ranked By This Provider Problem List: 1. Chronic pain syndrome 2. Back strain 3. Recurrent falls 4. Acute on chronic respiratory failure with hypoxemia Core Measures/Misc (06/19) Acute Coronary Syndrome ACS Diagnosis: No Congestive Heart Failure Congestive Heart Failure Diagnosis No Cerebrovascular Accident CVA/TIA Diagnosis: No VTE (View Protocol) VTE Risk Factors Acute Medical Illness No Mechanical VTE Prophylaxis d/t N/A MechProphylax Ordered No VTE Pharm Prophylaxis d/t NA PharmProphylax ordered Sepsis (View protocol) Sepsis Present: No
[2017-10-26 11:30] LABS: ABSOLUTE BASOPHIL COUNT 0 /CUMM (0.0-0.2); ABSOLUTE EOSINOPHIL COUNT 0.1 /CUMM (0.0-0.7); ABSOLUTE LYMPH COUNT 0.7 /CUMM (1.2-3.4); ABSOLUTE MONOCYTE COUNT 0.3 /CUMM (0.10-0.60); BASOPHIL % 0.1 % (0.0-2.0); EOSINOPHIL % 0.5 % (0-5); GRANULOCYTE % 91.6 % (42.2-75.2); HEMATOCRIT 40.6 % (37-47); MEAN CORPUSCULAR HGB 32.9 PG (27.0-31.0); MEAN CORPUSCULAR HGB CONC 32.4 G/DL (33.0-37.0); MEAN CORPUSCULAR VOLUME 101.7 FL (81.0-99.0); MEAN PLATELET VOLUME 10.3 FL (7.4-10.4); PLATELET COUNT 170 /CUMM (130-400); RBC DISTRIBUTION WIDTH 15.3 % (11.5-14.5); RED BLOOD CELL CT 3.99 /CUMM (4.20-5.40)
[2017-10-26 11:35] LABS: PT 27.4 SEC (9.4-12.5)
--- NOTE | 2017-10-26 13:33 | Cons- Pulmonary ---
General Information and HPI Consulting Request Date of Consult: 10/26/17 Requested By: MED TEAM History of Present Illness: This is a 71 yo female with PMH of atrial fibrillation on Coumadin, HFpEF, COPD on 2 L of oxygen, DICK not on CPAP, history of parotid cancer, fibromyalgia, schizophrenia, and PTSD, and right breast cancer status post mastectomy 15 years ago, who comes in for CC fall. When I spoke to patient she was slightly confused and unable to maintain a linear conversation. Couldnt get much history from her. Per ED notes, apparently, patient reported awakening up on the floor next to her TV after a fall she could not remember. She also endorsed an earlier fall in the morning as she fell out of bed. She used to [employer] for help. When I spoke to pt she stated that shed been short of breath since discharge from [facility] for COPD exacerbation about a month ago. She cannot remember much about the fall other than it happened twice today. She does endorse or shortness of breath when walking and she states that she is sleeping with head of bed more upright. She denies any chest pain but does endorse palpitations. She endorses 20 years of 2 pack smoking history and living with smokers with significant exposure to secondhand smoke. Denies alcohol or IV drug abuse. ROS pertinent for shortness of breath, orthopnea, palpitations, fall, loss of consciousness, denies any headache, nausea, vomiting, diarrhea, chest pain, loss of bladder or bowel function, or witnessed episode of seizure. Since she came in she has improved significantly Allergies/Medications Allergies: Coded Allergies: losartan (From COZAAR) (DIARRHEA - SEVERE PER PT 06/22/16) pineapple (MAKES RASHES THAT LOOK LIKE RINGS 06/22/16) shrimp (RASH 06/22/16) tramadol (HIVES 06/22/16) duloxetine (Severe, DIARRHEA 06/22/16) Sulfa (Sulfonamide Antibiotics) (VOMITING 06/22/16) celery (PER PT VOICE GETS HOARSE 06/22/16) ciprofloxacin (From CIPRO) (HAIRS ON ARM STAND UP PER PT 06/22/16) furazolidone (NAUSEA 06/22/16) glucosamine (NAUSEA 06/22/16) mushroom (YEAST INFECTION 06/22/16) sulfamethoxazole (From SEPTRA) (VOMITING 06/22/16) trimethoprim (VOMITING 06/22/16) Home Med List: Albuterol Sulfate (Proair Hfa) 90 MCG HFA.AER.AD 2 PUF INH PRN COPD (Reported ) Amlodipine (Norvasc) 2.5 MG TABLET 1 TAB PO PRN BP (Reported) Butalb/Acetaminophen/Caffeine (Qtjkgo-Liizulod-Xiis 50-325-40) 1 EACH TABLET 1 TAB PO PRN MIGRAINE (Reported) Diazepam 10 MG TABLET 1 TAB PO BID PRN ANXIETY (Reported) Diltiazem HCl (Cartia Xt) 180 MG CAP.ER.24H 1 CAP PO BID HEART (Reported) Furosemide (Lasix) 20 MG TABLET 1-2 TAB PO AD PRN SWELLING (Reported) Metoprolol Succinate 100 MG TAB.ER.24H 1 TAB PO BID BP (Reported) Montelukast Sodium 10 MG TABLET 1 TAB PO DAILY ALLERGIES (Reported) Oxycodone HCl 10 MG TABLET 1 TAB PO Q8H PRN PAIN (Reported) Potassium Chloride 10 MEQ TAB.ER.PRT 1 TAB PO AD PRN SUPPLEMENT (Reported) Prednisone 10 MG TABLET 1 TAB PO TAPER COPD Warfarin Sodium 6 MG TABLET 1 TAB PO SuMoTuThFr BLOOD THINNER (Reported) Warfarin Sodium 3 MG TABLET 1 TAB PO WeSa BLOOD THINNER (Reported) Review of Systems Review of Systems Constitutional: Reports: see HPI. 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 no Exam & Diagnostic Data Last 24 Hrs of Vital Signs/I&O Vital Signs Date Time Temp Pulse Resp B/P B/P Pulse O2 O2 Flow FiO2 Mean Ox Delivery Rate 10/26 1308 99.5 86 22 137/81 95 Nasal 3.5L Cannula 10/26 1059 Nasal 2.5L Cannula 10/26 1020 88 137/70 10/26 1015 98.8 88 20 137/70 91 Nasal 2.5L Cannula 10/26 0841 98.9 83 27 141/87 97 BIPAP 40% 10/26 0737 95.2 85 20 131/61 96 10/26 0531 87 96 10/26 0528 79 98 10/26 0410 79 22 122/78 93 Nasal 2.0L Cannula 10/26 0340 90 93 10/26 0141 98.0 77 30 133/72 89 Nasal 3.0L Cannula 10/25 2254 92 Nasal 3.5L Cannula 10/25 2203 98.5 78 24 135/72 91 Nasal 3.5L Cannula 10/25 2016 92 Nasal 4.0L Cannula 10/25 1956 98.0 81 22 139/60 91 Nasal 4.0L Cannula Intake & Output 10/26 1600 10/26 0800 10/26 0000 Intake Total 0 Output Total Balance 0 Intake, Oral 0 Last 48 Hrs of Labs/Efren: Laboratory Tests 10/26/17 1125: pH 7.42, pCO2 66 *H, pO2 57 L, HCO3 41 H, ABG O2 Sat (Measured) 90.0 L, P-50 (Temp Corrected) N, Carboxyhemoglobin 1.6, O2 Concentration % 2.5LPM, O2 Delivery Method NC, Phlebotomy Draw Site LEFT RADIAL 10/26/17 1117: Anion Gap 13, Estimated GFR > 60, BUN/Creatinine Ratio 28.8 H, Phosphorus 2.3 L, Magnesium 1.9, PT 27.4 H, INR 2.63 H, CBC w Diff MAN DIFF ORDERED, RBC 3.99 L, MCV 101.7 H, MCH 32.9 H, MCHC 32.4 L, RDW 15.3 H, MPV 10.3, Gran % 91.6 H, Lymphocytes % 5.7 L, Monocytes % 2.1, Eosinophils % 0.5, Basophils % 0.1, Absolute Granulocytes 11.0 H, Absolute Lymphocytes 0.7 L, Absolute Monocytes 0.3, Absolute Eosinophils 0.1, Absolute Basophils 0, Platelet Estimate VERIFIED BY SMEAR, Polychromasia 1+, Anisocytosis 1+, Macrocytic Cells 1+, Stomatocytes 1 + 01/24/18 1000: Troponin I < 0.01 10/26/17 0700: pH 7.34 L, pCO2 84 *H, pO2 72 L, HCO3 45 H, ABG O2 Sat (Measured) 93.0 L, Carboxyhemoglobin 1.2 L, O2 Concentration % 40, Respiration Rate 24, O2 Delivery Method BIPAP, Vent Mode ST, Expiratory Pressure 6, Inspiratory Pressure 18, Phlebotomy Draw Site LEFT RADIAL 10/26/17 0600: TSH &T3 &Free T4 Intrp Cancelled 10/26/17 0410: Troponin I < 0.01 10/26/17 0315: pH 7.28 *L, pCO2 90 *H, pO2 48 *L, HCO3 42 H, ABG O2 Sat (Measured) 78.0 L, P- 50 (Temp Corrected) Y, Carboxyhemoglobin 1.2 L, O2 Concentration % 2 LPM, Temperature 97.6, O2 Delivery Method N/C, Phlebotomy Draw Site LEFT RADIAL 10/25/17 2100: Urine Opiates Screen 983.00, Methadone Screen 69, Barbiturate Screen 387 H, Ur Phencyclidine Scrn < 6.00, Amphetamines Screen < 100, U Benzodiazepines Scrn > 800.0 H, Urine Cocaine Screen < 50, Urine Cannabis Screen < 5.00, Urine Color YEL, Urine Clarity HAZY H, Urine pH 6.0, Ur Specific [place] >= 1.030, Urine Protein 30 H, Urine Ketones NEG, Urine Nitrite NEG, Urine Bilirubin NEG, Urine Urobilinogen 0.2, Ur Leukocyte Esterase NEG, Ur Microscopic SEDIMENT EXAMINED, Urine RBC RARE, Urine WBC 1-3 H, Ur Epithelial Cells MANY H, Urine Bacteria MANY H, Hyaline Casts RARE H, Granular Casts RARE H, Urine Mucus FEW, Urine Hemoglobin TRACE-INTACT, Urine Glucose NEG 10/25/172052: Anion Gap 11, Estimated GFR 55 L, BUN/Creatinine Ratio 28.0 H, Glucose 91, Calcium 9.4, Total Bilirubin 0.4, AST 18, ALT 32, Alkaline Phosphatase 112, Troponin I < 0.01, Mba-J-Zfdbwicitkk Pept 4850 H, Total Protein 6.9, Albumin 3.8, Globulin 3.1, Albumin/Globulin Ratio 1.2, TSH &T3 &Free T4 Intrp 0.653, CBC w Diff NO MAN DIFF REQ, RBC 3.81 L, MCV 101.1 H, MCH 32.6 H, RDW 15.7 H, MPV 10.5 H, Gran % 76.1 H, Lymphocytes % 13.7 L, Monocytes % 8.8, Eosinophils % 1.0, Basophils % 0.4, Absolute Granulocytes 9.1 H, Absolute Lymphocytes 1.6, Absolute Monocytes 1.0 H, Absolute Eosinophils 0.1, Absolute Basophils 0, PUBS MCHC 32.2 L Microbiology 10/26 0847 NASOPHARYN: Influenza Virus A & B Rapid Smear - COMP Assessment/Plan Impression/Plan: HEENT: Pupils reactive to light; extraocular muscles intact. Mucous membranes very dry. Lungs: Diminished movement in all lung hernandez with crackles and rhonchi present. There is some light wheeze on exhalation at the bases. Cardiovascular: Irregularly irregular. Could not appreciate any murmurs. Abdomen: Soft obese, nontender to palpation. Extremities: 2+ edema 71-year-old female with past medical history significant for atrial fibrillation on Coumadin checks her INR with point of care device, history of history of congestive heart failure with preserved ejection fraction EF 65-70% on echo 09/2014 and right ventricle are systolic pressure of 46 mm of Hg, history of chronic obstructive pulmonary disease on 2 L of oxygen, obstructive sleep apnea not on CPAP, history of parotid cancer fibromyalgia schizophrenia and PTSD, history of right breast cancer status post mastectomy 15 years ago, came to emergency department for chief complaint of shortness of breath, after a fall Since she came in she was obtunded and was sig hypercarbic and was rxc with bipap now has improved ISSUES Acute on chronic hypercarbic and hypoxic resp failure due to untreated DICK, with copd, with narcotic playing a role PRob bronchitis viral vs bacterial Acute diastolic heart failure improving Elevated rt hemidiaphram, with diaphram eventeration DICK not on cpap due to pt tolerablity PREvious wedge resection of the lung (apparently was benign, no old records available) History of multiple lung nodules with previous ct till 2014 showing benign Anxiety with VC dysfunction at times Schizoaffective disorder and other psych issues History of breast ca with lymphadema stable Mild copd with more restricitve vent defect due to prob diaphramatic peresis and body habitus with no sig emphysema noted in the previous ct Pafib History of syncope and fall Recent narcotic and diazepam use which may have caused most of her issues aswell REC cont to monitor clinically Nebs Dc ceftriaxone and cont azithro COnt other meds No need for systemic steroids Start flovent 110 2 puff bid KEep hob up Diamox 500 mg po one dose If she becomes more somnolent use bipap at hs Watch for withdrawal and start benzo and narcotics at 30 -40 percent of her previous dose Will follow Ok to the tele floor Consult Acknowledgment - Thank you for your consult request.
--- NOTE | 2017-10-26 13:36 | Cons- Cardiology ---
General Information and HPI Consulting Request Date of Consult: 10/26/17 Requested By: Edgar Suazo MD Reason for Consult: Respiratory failure; rule out congestive heart failure Source of Information: patient, old records Exam Limitations: clinical condition History of Present Illness: The patient is a 71-year-old female who is well-known to me. Her past history is remarkable for atrial fibrillation on oral anticoagulation, pulmonary hypertension, chronic lung disease on supplemental oxygen, lower extremity edema , sleep apnea, not on CPAP, etc. The patient is admitted to the hospital now with hypercapnic respiratory failure. She has noticed increasing shortness of breath. She denies any other cardiovascular symptoms at the moment. Allergies/Medications Allergies: Coded Allergies: losartan (From COZAAR) (DIARRHEA - SEVERE PER PT 06/22/16) pineapple (MAKES RASHES THAT LOOK LIKE RINGS 06/22/16) shrimp (RASH 06/22/16) tramadol (HIVES 06/22/16) duloxetine (Severe, DIARRHEA 06/22/16) Sulfa (Sulfonamide Antibiotics) (VOMITING 06/22/16) celery (PER PT VOICE GETS HOARSE 06/22/16) ciprofloxacin (From CIPRO) (HAIRS ON ARM STAND UP PER PT 06/22/16) furazolidone (NAUSEA 06/22/16) glucosamine (NAUSEA 06/22/16) mushroom (YEAST INFECTION 06/22/16) sulfamethoxazole (From SEPTRA) (VOMITING 06/22/16) trimethoprim (VOMITING 06/22/16) Home Med List: Albuterol Sulfate (Proair Hfa) 90 MCG HFA.AER.AD 2 PUF INH PRN COPD (Reported ) Diazepam 10 MG TABLET 1 TAB PO BID PRN ANXIETY (Reported) Diltiazem HCl (Cartia Xt) 180 MG CAP.ER.24H 1 CAP PO BID HEART (Reported) Furosemide (Lasix) 20 MG TABLET 2 TAB PO AD PRN SWELLING (Reported) Metoprolol Succinate 100 MG TAB.ER.24H 1 TAB PO BID BP (Reported) Montelukast Sodium 10 MG TABLET 1 TAB PO DAILY ALLERGIES (Reported) Oxycodone HCl 10 MG TABLET 1 TAB PO Q8H PRN PAIN (Reported) Potassium Chloride 10 MEQ TAB.ER.PRT 1 TAB PO AD PRN SUPPLEMENT (Reported) Warfarin Sodium 6 MG TABLET 1 TAB PO SuMoTuThFr BLOOD THINNER (Reported) Current Medications: Current Medications Sig/Randa Start time Last Medication Dose Route Stop Time Status Admin Acetaminophen 0 .STK-MED ONE 10/26 1307 DC PO Acetaminophen 650 MG Q6P PRN 10/26 0530 AC 10/26 PO 1308 Acetaminophen 1,000 MG Q6P PRN 10/26 0530 AC IV Albuterol Sulfate 3 ML EVERY 4 HRS/AWAKE 10/26 1200 AC 10/26 INH 1255 Albuterol Sulfate 3 ML ONCE ONE 10/25 2230 DC 10/25 INH 10/25 223 2238 Azithromycin 500 MG DAILY 10/26 1000 AC 10/26 Dextrose/Water 250 ML IV 1148 Ceftriaxone Sodium 1,000 MG DAILY 10/26 1000 AC 10/26 IV 1140 Ceftriaxone Sodium 0 .STK-MED ONE 10/26 08 DC .ROUTE Diltiazem HCl 180 MG BID 10/26 1000 AC 10/26 PO 1020 Enoxaparin Sodium 40 MG DAILY 10/26 1000 CAN SC Furosemide 20 MG ONCE ONE 10/26 0600 DC IV 10/26 0601 Furosemide 0 .STK-MED ONE 10/26 0133 DC IV Furosemide 40 MG ONCE ONE 10/26 0045 DC 10/26 IV 10/26 0046 0134 Ibuprofen 600 MG Q6P PRN 10/26 0530 AC PO Ipratropium [place] 2.5 ML EVERY 4 HRS/AWAKE 10/26 1200 AC 10/26 INH 1255 Ipratropium [place] 2.5 ML ONCE ONE 10/25 2230 DC 10/25 INH 10/25 2230 223 Lidocaine 1 PAT DAILY NEEDED PRN 10/26 1115 AC EXT Methylprednisolone 0 .STK-MED ONE 10/26 08 DC .ROUTE Methylprednisolone 125 MG ONCE ONE 10/26 0615 DC 10/26 IV 10/26 0616 0835 Metoprolol Succinate 100 MG BID 10/26 1000 AC 10/26 PO 1020 Naloxone HCl 0.4 MG ONCE ONE 10/26 0830 DC 10/26 IV 10/26 0831 0835 Naloxone HCl 0 .STK-MED ONE 10/26 08 DC .ROUTE Oxycodone HCl 0 .STK-MED ONE 10/25 2141 DC PO Oxycodone HCl 10 MG ONCE ONE 10/25 2129 DC 10/25 PO 10/25 Past History Travel History Traveled to [place] past 21 day No Medical History Neurological: vertigo EENT: salivary gland disorders, L [employer] Cardiovascular: AFIB, hypertension Respiratory: asthma, COPD, obstructive sleep apnea, PLEURISY O2 2L DEP PRN AND @ NITE Gastrointestinal: irritable bowel syndrome Hepatic: NONE Renal: UTI Musculoskeletal: fibromyalgia, osteoarthritis Psychiatric: schizophrenia, PTSD Endocrine: NONE Blood Disorders: NONE Cancer(s): LUNG, 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 no Exam & Diagnostic Data Vital Signs and I&O Vital Signs Date Time Temp Pulse Resp B/P B/P Pulse O2 O2 Flow FiO2 Mean Ox Delivery Rate 10/26 1308 99.5 86 22 137/81 95 Nasal 3.5L Cannula 10/26 1059 Nasal 2.5L Cannula 10/26 1020 88 137/70 10/26 1015 98.8 88 20 137/70 91 Nasal 2.5L Cannula 10/26 0841 98.9 83 27 141/87 97 BIPAP 40% 10/26 0737 95.2 85 20 131/61 96 10/26 0531 87 96 10/26 0528 79 98 10/26 0410 79 22 122/78 93 Nasal 2.0L Cannula 10/26 0340 90 93 10/26 0141 98.0 77 30 133/72 89 Nasal 3.0L Cannula 10/25 2253 92 Nasal 3.5L Cannula 10/25 2202 98.5 78 24 135/72 91 Nasal 3.5L Cannula 10/25 2016 92 Nasal 4.0L Cannula 10/25 1956 98.0 81 22 139/60 91 Nasal 4.0L Cannula Intake & Output 10/26 1600 10/26 0800 10/26 0000 10/25 1600 10/25 0810/25 0000 Intake Total 0 Output Total Balance 0 Intake, Oral 0 Physical Exam: general: Well-developed, white female, alert but confused. HEENT: Normal Neck: JVP normal, carotid upstroke normal bilaterally Chest: Bilateral rhonchi with decreased breath sounds Heart: S1, S2. 1 to 2/6 systolic murmur left sternal border Abdomen: Unremarkable Extremities: Trace edema Labs/Efren Results: Laboratory Tests 10/26 10/26 1125 1117 Blood Gas pH (7.35 - 7.45 PH) 7.42 pCO2 (35 - 45 TORR) 66 *H pO2 (80 - 100 TORR) 57 L HCO3 (21 - 28 MEQ/L) 41 H ABG O2 Sat (Measured) (>96.0 %) 90.0 L P-50 (Temp Corrected) N Carboxyhemoglobin (1.5 - 5.0 %) 1.6 O2 Concentration % 2.5LPM O2 Delivery Method NC Chemistry Sodium (137 - 145 mmol/L) 144 Potassium (3.5 - 5.1 mmol/L) 4.3 Chloride (98 - 107 mmol/L) 89 L Carbon Dioxide (22 - 30 mmol/L) 42 H Anion Gap (5 - 16) 13 BUN (7 - 17 mg/dL) 23 H Creatinine (0.5 - 1.0 mg/dL) 0.8 Estimated GFR (>60 ml/min) > 60 BUN/Creatinine Ratio (7 - 25 %) 28.8 H Phosphorus (2.5 - 4.5 mg/dL) 2.3 L Magnesium (1.6 - 2.3 mg/dL) 1.9 Coagulation PT (9.4 - 12.5 SEC) 27.4 H INR (0.90 - 1.19) 2.63 H Hematology CBC w Diff MAN DIFF ORDERED WBC (4.8 - 10.8 /CUMM) 12.0 H RBC (4.20 - 5.40 /CUMM) 3.99 L Hgb (12.0 - 16.0 G/DL) 13.1 Hct (37 - 47 %) 40.6 MCV (81.0 - 99.0 FL) 101.7 H MCH (27.0 - 31.0 PG) 32.9 H MCHC (33.0 - 37.0 G/DL) 32.4 L RDW (11.5 - 14.5 %) 15.3 H Plt Count (130 - 400 /CUMM) 170 MPV (7.4 - 10.4 FL) 10.3 Gran % (42.2 - 75.2 %) 91.6 H Lymphocytes % (20.5 - 51.1 %) 5.7 L Monocytes % (1.7 - 9.3 %) 2.1 Eosinophils % (0 - 5 %) 0.5 Basophils % (0.0 - 2.0 %) 0.1 Absolute Granulocytes (1.4 - 6.5 /CUMM) 11.0 H Absolute Lymphocytes (1.2 - 3.4 /CUMM) 0.7 L Absolute Monocytes (0.10 - 0.60 /CUMM) 0.3 Absolute Eosinophils (0.0 - 0.7 /CUMM) 0.1 Absolute Basophils (0.0 - 0.2 /CUMM) 0 Platelet Estimate (ADEQUATE) VERIFIED BY SMEAR Polychromasia 1+ Anisocytosis 1+ Macrocytic Cells 1+ Stomatocytes 1+ Miscellaneous Phlebotomy Draw Site LEFT RADIAL 10/26 10/26 10/26 10/26 1000 0700 0600 0410 Blood Gas pH (7.35 - 7.45 PH) 7.34 L pCO2 (35 - 45 TORR) 84 *H pO2 (80 - 100 TORR) 72 L HCO3 (21 - 28 MEQ/L) 45 H ABG O2 Sat (Measured) (>96.0 %) 93.0 L Carboxyhemoglobin (1.5 - 5.0 %) 1.2 L O2 Concentration % 40 Respiration Rate (BPM) 24 O2 Delivery Method BIPAP Vent Mode ST Expiratory Pressure (CM H2O P) 6 Inspiratory Pressure (CM H2O P) 18 Chemistry Troponin I (< 0.11 ng/ml) < 0.01 < 0.01 TSH &T3 &Free T4 Intrp Cancelled Miscellaneous Phlebotomy Draw Site LEFT RADIAL 10/26 10/25 0315 2100 Blood Gas pH (7.35 - 7.45 PH) 7.28 *L pCO2 (35 - 45 TORR) 90 *H pO2 (80 - 100 TORR) 48 *L HCO3 (21 - 28 MEQ/L) 42 H ABG O2 Sat (Measured) (>96.0 %) 78.0 L P-50 (Temp Corrected) Y Carboxyhemoglobin (1.5 - 5.0 %) 1.2 L O2 Concentration % 2 LPM Temperature (97.0 - 100.0 FARH) 97.6 O2 Delivery Method N/C Miscellaneous Phlebotomy Draw Site LEFT RADIAL Toxicology Urine Opiates Screen (>2000 NG/ML) 983.00 Methadone Screen (>300 NG/ML) 69 Barbiturate Screen (>200 NG/ML) 387 H Ur Phencyclidine Scrn (>25 NG/ML) < 6.00 Amphetamines Screen (>1000 NG/ML) < 100 U Benzodiazepines Scrn (>200 NG/ML) > 800.0 H Urine Cocaine Screen (>300 NG/ML) < 50 Urine Cannabis Screen (>50 NG/ML) < 5.00 Urines Urine Color (YEL,AMB,STR) YEL Urine Clarity (CLEAR) HAZY H Urine pH (5.0 - 8.0) 6.0 Ur Specific [place] (1.001 - 1.035) >= 1.030 Urine Protein (NEG,<30 MG/DL) 30 H Urine Ketones (NEG) NEG Urine Nitrite (NEG) NEG Urine Bilirubin (NEG) NEG Urine Urobilinogen (0.1 - 1.0 EU/dl) 0.2 Ur Leukocyte Esterase (NEG) NEG Ur Microscopic SEDIMENT EXAMINED Urine RBC (0 - 5 /HPF) RARE Urine WBC (0 - 2 /HPF) 1-3 H Ur Epithelial Cells (NONE,FEW) MANY H Urine Bacteria (NEG/NONE) MANY H Hyaline Casts (0/LPF) RARE H Granular Casts (NONE /LPF) RARE H Urine Mucus (FEW,NONE) FEW Urine Hemoglobin (NEG) TRACE-INTACT Urine Glucose (N MG/DL) NEG 10/25 2052 Chemistry Sodium (137 - 145 mmol/L) 141 Potassium (3.5 - 5.1 mmol/L) 4.5 Chloride (98 - 107 mmol/L) 91 L Carbon Dioxide (22 - 30 mmol/L) 39 H Anion Gap (5 - 16) 11 BUN (7 - 17 mg/dL) 28 H Creatinine (0.5 - 1.0 mg/dL) 1.0 Estimated GFR (>60 ml/min) 55 L BUN/Creatinine Ratio (7 - 25 %) 28.0 H Glucose (65 - 99 mg/dL) 91 Calcium (8.4 - 10.2 mg/dL) 9.4 Total Bilirubin (0.2 - 1.3 mg/dL) 0.4 AST (14 - 36 U/L) 18 ALT (9 - 52 U/L) 32 Alkaline Phosphatase (<127 U/L) 112 Troponin I (< 0.11 ng/ml) < 0.01 Pze-S-Mhdncehbqfl Pept (<125 pg/mL) 4850 H Total Protein (6.3 - 8.2 g/dL) 6.9 Albumin (3.5 - 5.0 g/dL) 3.8 Globulin (1.9 - 4.2 gm/dL) 3.1 Albumin/Globulin Ratio (1.1 - 2.2 %) 1.2 TSH &T3 &Free T4 Intrp (0.270 - 4.20 uIU/mL) 0.653 Hematology CBC w Diff NO MAN DIFF REQ WBC (4.8 - 10.8 /CUMM) 11.9 H RBC (4.20 - 5.40 /CUMM) 3.81 L Hgb (12.0 - 16.0 G/DL) 12.4 Hct (37 - 47 %) 38.6 MCV (81.0 - 99.0 FL) 101.1 H MCH (27.0 - 31.0 PG) 32.6 H RDW (11.5 - 14.5 %) 15.7 H Plt Count (130 - 400 /CUMM) 190 MPV (7.4 - 10.4 FL) 10.5 H Gran % (42.2 - 75.2 %) 76.1 H Lymphocytes % (20.5 - 51.1 %) 13.7 L Monocytes % (1.7 - 9.3 %) 8.8 Eosinophils % (0 - 5 %) 1.0 Basophils % (0.0 - 2.0 %) 0.4 Absolute Granulocytes (1.4 - 6.5 /CUMM) 9.1 H Absolute Lymphocytes (1.2 - 3.4 /CUMM) 1.6 Absolute Monocytes (0.10 - 0.60 /CUMM) 1.0 H Absolute Eosinophils (0.0 - 0.7 /CUMM) 0.1 Absolute Basophils (0.0 - 0.2 /CUMM) 0 PUBS MCHC (33.0 - 37.0 G/DL) 32.2 L Diagnostic Data CXR Results IMPRESSION: Interval increase in interstitial prominence throughout both lungs, likely inbound sales representative of vascular congestion. Superimposed multifocal airspace disease which could correspond to atelectasis, though a developing infiltrate cannot be excluded. Recommendation is for a followup chest series to be obtained following treatment and/or resolution of symptoms to assure resolution of this appearance. Assessment/Plan Assessment/Plan Assessment: 1. Acute on chronic hypoxic/hypercapnic respiratory failure-at the moment, I believe this patient's issues are likely related to underlying pulmonary disease. I do not see any overt evidence of heart failure at the moment. 2. Underlying COPD exacerbation with probable pulmonary hypertension and associated lower extremity edema 3. Possible HFpEF 4. Atrial fibrillation 5. History of falls; possible syncope 6. Hypertension Recommendations: -Telemetry monitoring -Serial troponins -Serial ECGs -Echocardiogram pending -Continue as per the medical team, culture results pending -Consider formal PA and lateral chest x-ray -Maintain euvolemic status for now. Monitor intakes, outputs, and daily weights. -Follow-up labs in the morning. Consult Acknowledgment - Thank you for your consult request.
--- NOTE | 2017-10-26 14:06 | Admission Certification ---
Admission Certification Certification Statement - As attending physician, I certify that at the time of - admission, based on clinical presentation, severity of - symptoms, need for further diagnostic testing and - therapeutic interventions, and risk of adverse outcomes - without in-hospital treatment, in my clinical assessment, - this patient requires an acute hospital stay for a minimum - of two nights or longer. I have also considered psychsocial - factors such as support system, advanced age, financial - issues, cognitive issues, and failed out-patient treatments, - past re-admission history, safety of patient, and lack of - compliance as applicable. Specific rationale supporting this admission is: Falls, I per Respiratory failure and pulmonary congestion
--- NOTE | 2017-10-26 14:11 | PN- Att Addend ---
Attending Addendum Attending Brief Note 71-year-old female I had seen her once at rehabilitation. Again has had several falls comes into the ER with increased shortness of breath found to be in hypercapnic respiratory failure is x-ray showed some vascular congestion and she has history of atrial fibrillation on anticoagulation pulmonary hypertension 80 on oxygen edema and sleep apnea patient was admitted and was seen by cardiology and pulmonary will follow the recommendations Laboratory Tests 10/26/17 1125: pH 7.42, pCO2 66 *H, pO2 57 L, HCO3 41 H, ABG O2 Sat (Measured) 90.0 L, P-50 (Temp Corrected) N, Carboxyhemoglobin 1.6, O2 Concentration % 2.5LPM, O2 Delivery Method NC, Phlebotomy Draw Site LEFT RADIAL 10/26/17 1117: Anion Gap 13, Estimated GFR > 60, BUN/Creatinine Ratio 28.8 H, Phosphorus 2.3 L, Magnesium 1.9, PT 27.4 H, INR 2.63 H, CBC w Diff MAN DIFF ORDERED, RBC 3.99 L, MCV 101.7 H, MCH 32.9 H, MCHC 32.4 L, RDW 15.3 H, MPV 10.3, Gran % 91.6 H, Lymphocytes % 5.7 L, Monocytes % 2.1, Eosinophils % 0.5, Basophils % 0.1, Absolute Granulocytes 11.0 H, Absolute Lymphocytes 0.7 L, Absolute Monocytes 0.3, Absolute Eosinophils 0.1, Absolute Basophils 0, Platelet Estimate VERIFIED BY SMEAR, Polychromasia 1+, Anisocytosis 1+, Macrocytic Cells 1+, Stomatocytes 1 + 10/26/17 1000: Troponin I < 0.01 10/26/17 0700: pH 7.34 L, pCO2 84 *H, pO2 72 L, HCO3 45 H, ABG O2 Sat (Measured) 93.0 L, Carboxyhemoglobin 1.2 L, O2 Concentration % 40, Respiration Rate 24, O2 Delivery Method BIPAP, Vent Mode ST, Expiratory Pressure 6, Inspiratory Pressure 18, Phlebotomy Draw Site LEFT RADIAL 10/26/17 0600: TSH &T3 &Free T4 Intrp Cancelled 10/26/17 0410: Troponin I < 0.01 10/26/17 0315: pH 7.28 *L, pCO2 90 *H, pO2 48 *L, HCO3 42 H, ABG O2 Sat (Measured) 78.0 L, P- 50 (Temp Corrected) Y, Carboxyhemoglobin 1.2 L, O2 Concentration % 2 LPM, Temperature 97.6, O2 Delivery Method N/C, Phlebotomy Draw Site LEFT RADIAL 10/25/17 2100: Urine Opiates Screen 983.00, Methadone Screen 69, Barbiturate Screen 387 H, Ur Phencyclidine Scrn < 6.00, Amphetamines Screen < 100, U Benzodiazepines Scrn > 800.0 H, Urine Cocaine Screen < 50, Urine Cannabis Screen < 5.00, Urine Color YEL, Urine Clarity HAZY H, Urine pH 6.0, Ur Specific [place] >= 1.030, Urine Protein 30 H, Urine Ketones NEG, Urine Nitrite NEG, Urine Bilirubin NEG, Urine Urobilinogen 0.2, Ur Leukocyte Esterase NEG, Ur Microscopic SEDIMENT EXAMINED, Urine RBC RARE, Urine WBC 1-3 H, Ur Epithelial Cells MANY H, Urine Bacteria MANY H, Hyaline Casts RARE H, Granular Casts RARE H, Urine Mucus FEW, Urine Hemoglobin TRACE-INTACT, Urine Glucose NEG 10/25/172052: Anion Gap 11, Estimated GFR 55 L, BUN/Creatinine Ratio 28.0 H, Glucose 91, Calcium 9.4, Total Bilirubin 0.4, AST 18, ALT 32, Alkaline Phosphatase 112, Troponin I < 0.01, Wde-D-Vdtbccfbzdv Pept 4850 H, Total Protein 6.9, Albumin 3.8, Globulin 3.1, Albumin/Globulin Ratio 1.2, TSH &T3 &Free T4 Intrp 0.653, CBC w Diff NO MAN DIFF REQ, RBC 3.81 L, MCV 101.1 H, MCH 32.6 H, RDW 15.7 H, MPV 10.5 H, Gran % 76.1 H, Lymphocytes % 13.7 L, Monocytes % 8.8, Eosinophils % 1.0, Basophils % 0.4, Absolute Granulocytes 9.1 H, Absolute Lymphocytes 1.6, Absolute Monocytes 1.0 H, Absolute Eosinophils 0.1, Absolute Basophils 0, PUBS MCHC 32.2 L Microbiology 10/26 0847 NASOPHARYN: Influenza Virus A & B Rapid Smear - COMP
[2017-10-26 14:36] VITALS: BP 152/69
[2017-10-27 06:00] VITALS: BP 148/78
--- NOTE | 2017-10-27 07:16 | PN- Housestaff ---
Subjective Follow-up For: Respiratory failure Tele-Events Since Last Visit: Afib, [age] Subjective: No overnight events. This morning, she is saying that becuse her perjured himself, she doesn't care whether she lives or dies. She denies pruposefully overdosing on medications. Otherwise, complaining of "liver pain", neck pain, and leg pain. No SOB or CP. Review of Systems Constitutional: Reports: no symptoms. EENTM: Reports: no symptoms. Cardiovascular: Reports: no symptoms. Respiratory: Reports: no symptoms. Gastrointestinal: Reports: see HPI. Genitourinary: Reports: no symptoms. Musculoskeletal: Reports: see HPI. Skin: Reports: no symptoms. Neurological/Psychological: Reports: see HPI. Hematologic/Endocrine: Reports: no symptoms. Immunologic/Allergic: Reports: no symptoms. Objective Last 24 Hrs of Vital Signs/I&O Vital Signs Date Time Temp Pulse Resp B/P B/P Pulse O2 O2 Flow FiO2 Mean Ox Delivery Rate 10/27 0000 Nasal 3.5L Cannula 10/26 2201 98 146/86 10/26 1824 99.2 99 22 134/70 93 Nasal 3.5L Cannula 10/26 1705 94 Nasal 3.5L Cannula 10/26 1641 99.4 84 20 126/59 92 Nasal 3.5L Cannula 10/26 1436 93 Nasal 3.5L Cannula 10/26 1436 98.5 85 22 152/69 93 Nasal 3.5L Cannula 10/26 1421 98.5 85 22 152/69 93 Nasal 3.5L Cannula 10/26 1308 99.5 86 22 137/81 95 Nasal 3.5L Cannula 10/26 1059 Nasal 2.5L Cannula 10/26 1020 88 137/70 10/26 1015 98.8 88 20 137/70 91 Nasal 2.5L Cannula 10/26 0841 98.9 83 27 141/87 97 BIPAP 40% 10/26 0737 95.2 85 20 131/61 96 Intake & Output 10/27 0800 10/27 0000 10/26 1600 Intake Total 608 69 9524 Output Total 800 1850 2700 Balance -700 -1770 -1230 Intake, IV 750 Intake, Oral 100 80 720 Output, Urine 800 1850 2700 Patient 119.748 kg Weight Physical Exam General Appearance: Alert, Oriented X3, Cooperative, No Acute Distress Cardiovascular: irregular Lungs: crackles and wheezing Abdomen: Normal Bowel Sounds, Soft, epigastric/RUQ tenderness Neurological: Normal Speech Extremities: no pitting edema Current Medications: Current Medications Sig/Randa Start time Last Medication Dose Route Stop Time Status Admin Acetaminophen 0 .STK-MED ONE 10/26 1307 DC PO Acetaminophen 650 MG Q6P PRN 10/26 0530 AC 10/26 PO 1308 Acetaminophen 1,000 MG Q6P PRN 10/26 0530 AC 10/26 IV 2200 Acetazolamide 500 MG ONCE ONE 10/26 1400 DC 10/26 PO 10/26 1401 1501 Albuterol Sulfate 3 ML EVERY 4 HRS/AWAKE 10/26 1200 AC 10/26 INH 2101 Azithromycin 500 MG DAILY 10/26 1000 AC 10/26 Dextrose/Water 250 ML IV 1148 Ceftriaxone Sodium 1,000 MG DAILY 10/26 1000 DC 10/26 IV 1140 Ceftriaxone Sodium 0 .STK-MED ONE 10/26 0830 DC .ROUTE Diazepam 2 MG BID PRN 10/26 1630 AC PO Diltiazem HCl 180 MG BID 10/26 1000 AC 10/26 PO 2202 Fluticasone 2 PUF BID 10/26 1345 AC 10/26 Propionate INH 1501 Ibuprofen 600 MG Q6P PRN 10/26 0530 AC PO Ipratropium [place] 2.5 ML EVERY 4 HRS/AWAKE 10/26 1200 AC 10/26 INH 2101 Lidocaine 1 PAT DAILY NEEDED PRN 10/26 1115 AC EXT Methylprednisolone 0 .STK-MED ONE 10/26 0830 DC .ROUTE Metoprolol Succinate 100 MG BID 10/26 1000 AC 10/26 PO 2201 Naloxone HCl 0.4 MG ONCE ONE 10/26 0830 DC 10/26 IV 10/26 0831 0835 Naloxone HCl 0 .STK-MED ONE 10/26 0830 DC .ROUTE Warfarin Sodium 4 MG COUMADIN 1700 ONE 10/26 1700 DC 10/26 PO 10/26 1701 1800 Last 24 Hrs of Lab/Efren Results Last 24 Hrs of Labs/Mics: Laboratory Tests 10/26/17 1125: pH 7.42, pCO2 66 *H, pO2 57 L, HCO3 41 H, ABG O2 Sat (Measured) 90.0 L, P-50 (Temp Corrected) N, Carboxyhemoglobin 1.6, O2 Concentration % 2.5LPM, O2 Delivery Method NC, Phlebotomy Draw Site LEFT RADIAL 10/26/17 1117: Anion Gap 13, Estimated GFR > 60, BUN/Creatinine Ratio 28.8 H, Phosphorus 2.3 L, Magnesium 1.9, PT 27.4 H, INR 2.63 H, CBC w Diff MAN DIFF ORDERED, RBC 3.99 L, MCV 101.7 H, MCH 32.9 H, MCHC 32.4 L, RDW 15.3 H, MPV 10.3, Gran % 91.6 H, Lymphocytes % 5.7 L, Monocytes % 2.1, Eosinophils % 0.5, Basophils % 0.1, Absolute Granulocytes 11.0 H, Absolute Lymphocytes 0.7 L, Absolute Monocytes 0.3, Absolute Eosinophils 0.1, Absolute Basophils 0, Platelet Estimate VERIFIED BY SMEAR, Polychromasia 1+, Anisocytosis 1+, Macrocytic Cells 1+, Stomatocytes 1 + 10/26/17 1000: Troponin I < 0.01 Microbiology 10/26 2100 BLOOD: Blood Culture - RECD 10/26 2009 URINE ROUT: Legionella Antigen - COMP 10/26 2009 URINE ROUT: Urine Culture - RECD 10/26 1117 BLOOD: Blood Culture - RECD 10/26 0847 NASOPHARYN: Influenza Virus A & B Rapid Smear - COMP Assessment/Plan Assessment: This is a 71-year-old female with past medical history significant for COPD, CHF , fibromyalgia, atrial fibrillation, who comes in for chief complaint of fall, found to be in hypercarbic respiratory failure with marked improvement status post BiPAP. Problem list: 1. Acute hypoxic hypercarbic respiratory failure 2. Accidental opioid overdose 3. Fall #Acute hypoxic hypercarbic respiratory failure: Patient presented with respiratory distress and ABG showing respiratory acidosis with hypercarbia. Head CT/lumbar CT negative. Chest x-ray showed interval increase in interstitial prominence likely containers sales representative of vascular congestion. She markedly improved overnight status post BiPAP and naloxone administration. Her respiratory failure was likely secondary to opioid overdose. Although she says that she did not overdose purposefully, she did tell me this morning that she doesn't care whether she lives or dies because of issues with her . -Consider repeat chest x-ray -Continue fluticasone, ipratropium, albuterol -Oxygen therapy: Patient is on 2 L nasal cannula at home. -Azithromycin: Consider discontinuing -Psychiatry consult -Watch for withdrawal -Sitter #Chronic medical problems: -Continue home medications DVT prophylaxis with warfarin Heart healthy diet Full code Problem List: 1. Opioid overdose 2. alive Pain Ratin Pain Location: no pain Pain Goal: Remain pain free Pain Plan: see a/p Tomorrow's Labs & Rationales: cbb, bep inr
--- NOTE | 2017-10-27 09:23 | ECHOCARDIOGRAM REPORT ---
BERTHA CARTER Age: 71 : 1945 Gender: F Exam Date: 10/26/2017 16:03 Exam Location: ER Ht (in): 66 Wt (lb): 263 BSA: 2.42 BP: 152 / 69 Ordering Physician: Xavier Sweet MD Referring Physician: Junie Ross MD Technologist: Alva Reich BIANCA Room Number: [id number] Indications: PULMONARY HYPERTENSION Rhythm: Atrial fibrillation Technical Quality: Fair FINDINGS Left Ventricle Normal size left ventricle. No obvious regional wall motion abnormalities. Normal left ventricular ejection fraction estimated at 55-60%. Right Ventricle Mild right ventricular dilatation. Right Atrium Mild right atrial dilatation. Left Atrium Mild to moderate left atrial dilatation. Mitral Valve Mitral valve thickened. Mild mitral annular calcification. Mild mitral regurgitation. Aortic Valve Trileaflet aortic valve. Diffuse thickening (sclerosis) of the aortic valve cusps without reduced excursion. No aortic stenosis. No aortic regurgitation. Tricuspid Valve Tricuspid valve not well visualized, grossly normal. Mild-to- moderate tricuspid regurgitation. Right ventricular systolic pressure estimated to be elevated at 46 mmHg. Pulmonic Valve Pulmonic valve not well visualized, grossly normal. Trace pulmonic regurgitation. Pericardium Small pericardial effusion. Great Vessels Aortic root and proximal ascending aorta not well visualized, grossly normal. CONCLUSIONS 1. This was a technically difficult and limited study 2. Mild aortic sclerosis is present with no valvular stenosis or insufficiency 3. Mitral leaflet thickening is present with mild annular calcification and mild mitral insufficiency with moderate left atrial enlargement. 4. A very small posterior pericardial effusion is present which is hemodynamically insignificant. 5. The left ventricular chamber size and systolic function appear normal. There are no visible wall motion abnormalities at rest. 6. Mild enlargement of the right heart chambers is noted with mild to moderate tricuspid insufficiency and minimal pulmonic insufficiency with pulmonary hypertension and a right ventricular systolic pressure of 46 mmHg. Junie Ross M.D. (Electronically Signed) Final Date: 27 October 2017 09:22 MEASUREMENTS (Male / Female) Normal Values 2D ECHO LV Diastolic Diameter PLAX 4.5 cm 4.2 - 5.9 / 3.9 - 5.3 cm LV Systolic Diameter PLAX 2.1 cm 2.1 - 4.0 cm LV Fractional Shortening PLAX 53.3 % 25 - 46 % LV Ejection Fraction 2D Teich 84.4 % IVS Diastolic Thickness 1.2 cm LVPW Diastolic Thickness 1.1 cm LV Relative Wall Thickness 0.5 RV Internal Dim ED PLAX 3.2 cm 1.9 - 3.8 cm LVOT Diameter 1.9 cm Aortic Root Diameter 2.9 cm LA Systolic Diameter LX 4.7 cm 3.0 - 4.0 / 2.7 - 3.8 cm LA Volume 65.0 cm 18 - 58 / 22 - 52 cm Ascending Aorta Diameter 3.2 cm DOPPLER AV Peak Velocity 151.0 cm/s AV Peak Gradient 9.1 mmHg AV Mean Velocity 106.0 cm/s AV Mean Gradient 5.0 mmHg AV Velocity Time Integral 28.3 cm LVOT Peak Velocity 98.5 cm/s LVOT Peak Gradient 3.9 mmHg LVOT Mean Velocity 68.8 cm/s LVOT Mean Gradient 2.0 mmHg LVOT Velocity Time Integral 18.4 cm LVOT Stroke Volume 52.2 cm AV Area Cont Eq vti 1.8 cm AV Area Cont Eq pk 1.8 cm MV Peak Velocity 132.0 cm/s MV Peak Gradient 7.0 mmHg MV Mean Velocity 67.0 cm/s MV Mean Gradient 2.0 mmHg Mitral E Point Velocity 121.0 cm/s MV PHT Velocity 142.0 cm/s MV Deceleration Jerome 656.0 cm/s MV Pressure Half Time 64.9 ms MV Area PHT 3.4 cm MV Deceleration Time 246.0 ms TR Peak Velocity 304.0 cm/s TR Peak Gradient 37.0 mmHg Right Atrial Pressure 5.0 mmHg Pulmonary Artery Systolic Pressu 42.0 mmHg Right Ventricular Systolic Press 42.0 mmHg PV Peak Velocity 106.0 cm/s PV Peak Gradient 4.5 mmHg PV Mean Velocity 68.2 cm/s PV Mean Gradient 2.0 mmHg PV Velocity Time Integral 17.3 cm LV E' Lateral Velocity 12.5 cm/s Mitral E to LV E' Lateral Ratio 9.7 LV E' Septal Velocity 14.6 cm/s Mitral E to LV E' Septal Ratio 8.3
--- NOTE | 2017-10-27 10:32 | PN- Cardiology ---
Subjective Subjective: SOB is improving. No chest pain. No palpitations. No diaphoresis. No nausea or vomiting. No lightheadedness or dizziness. Objective Vital Signs and I&Os Vital Signs Date Time Temp Pulse Resp B/P B/P Pulse O2 O2 Flow FiO2 Mean Ox Delivery Rate 10/27 0944 66 148/78 10/27 0850 97 Nasal 2.0L Cannula 10/27 0600 98.3 66 20 148/78 94 10/27 0000 Nasal 3.5L Cannula 10/26 2201 98 146/86 10/26 1824 99.2 99 22 134/70 93 Nasal 3.5L Cannula 10/26 1705 94 Nasal 3.5L Cannula 10/26 1641 99.4 84 20 126/59 92 Nasal 3.5L Cannula 10/26 1436 93 Nasal 3.5L Cannula 10/26 1436 98.5 85 22 152/69 93 Nasal 3.5L Cannula 10/26 1421 98.5 85 22 152/69 93 Nasal 3.5L Cannula 10/26 1308 99.5 86 22 137/81 95 Nasal 3.5L Cannula 10/26 1059 Nasal 2.5L Cannula Intake & Output 10/27 1600 10/27 0800 10/27 0000 10/26 1600 10/26 0800 10/26 0000 Intake Total 406 69 4150 0 Output Total 800 1850 2700 Balance -700 -1770 -1230 0 Intake, IV 750 Intake, Oral 100 80 720 0 Output, Urine 800 1850 2700 Patient 264 lb Weight Physical Exam: Gen: NAD HEENT: normal Lungs: Scattered rhonci, normal resp. effort Heart: Irreg irreg, S1, S2, 1/6 systolic murmur Abdomen: Soft, nontender, no masses Extremities: 1+ edema Neuro: Alert and oriented x 3, cranial nerves intact Current Medications: Current Medications Sig/Randa Start time Last Medication Dose Route Stop Time Status Admin Acetaminophen 975 MG Q6P PRN 10/27 0845 AC PO Acetaminophen 0 .STK-MED ONE 10/26 1307 DC PO Acetaminophen 650 MG Q6P PRN 10/26 0530 DC 10/26 PO 1308 Acetaminophen 1,000 MG Q6P PRN 10/26 0530 DC 10/26 IV 2200 Acetazolamide 500 MG ONCE ONE 10/26 1400 DC 10/26 PO 10/26 1401 1501 Albuterol Sulfate 3 ML EVERY 4 HRS/AWAKE 10/26 1200 AC 10/27 INH 0846 Azithromycin 500 MG DAILY 10/26 1000 AC 10/26 Dextrose/Water 250 ML IV 1148 Ceftriaxone Sodium 1,000 MG DAILY 10/26 1000 DC 10/26 IV 1140 Diazepam 2 MG BID PRN 10/26 1630 r PO Diltiazem HCl 180 MG BID 10/26 1000 AC 10/27 PO 0944 Fluticasone 2 PUF BID 10/26 1345 AC 10/27 Propionate INH 0944 Ibuprofen 600 MG Q6P PRN 10/26 0530 AC PO Ipratropium [place] 2.5 ML EVERY 4 HRS/AWAKE 10/26 1200 AC 10/27 INH 0846 Lidocaine 1 PAT DAILY NEEDED PRN 10/26 1115 AC EXT Metoprolol Succinate 100 MG BID 10/26 1000 AC 10/27 PO 0944 Warfarin Sodium 4 MG COUMADIN 1700 ONE 10/26 1700 DC 10/26 PO 10/26 1701 1800 Results Last 48 Hrs of Labs/Mics: Laboratory Tests 10/26/17 1125: pH 7.42, pCO2 66 *H, pO2 57 L, HCO3 41 H, ABG O2 Sat (Measured) 90.0 L, P-50 (Temp Corrected) N, Carboxyhemoglobin 1.6, O2 Concentration % 2.5LPM, O2 Delivery Method NC, Phlebotomy Draw Site LEFT RADIAL 10/26/17 1117: Anion Gap 13, Estimated GFR > 60, BUN/Creatinine Ratio 28.8 H, Phosphorus 2.3 L, Magnesium 1.9, PT 27.4 H, INR 2.63 H, CBC w Diff MAN DIFF ORDERED, RBC 3.99 L, MCV 101.7 H, MCH 32.9 H, MCHC 32.4 L, RDW 15.3 H, MPV 10.3, Gran % 91.6 H, Lymphocytes % 5.7 L, Monocytes % 2.1, Eosinophils % 0.5, Basophils % 0.1, Absolute Granulocytes 11.0 H, Absolute Lymphocytes 0.7 L, Absolute Monocytes 0.3, Absolute Eosinophils 0.1, Absolute Basophils 0, Platelet Estimate VERIFIED BY SMEAR, Polychromasia 1+, Anisocytosis 1+, Macrocytic Cells 1+, Stomatocytes 1 + 10/26/17 1000: Troponin I < 0.01 10/26/17 0700: pH 7.34 L, pCO2 84 *H, pO2 72 L, HCO3 45 H, ABG O2 Sat (Measured) 93.0 L, Carboxyhemoglobin 1.2 L, O2 Concentration % 40, Respiration Rate 24, O2 Delivery Method BIPAP, Vent Mode ST, Expiratory Pressure 6, Inspiratory Pressure 18, Phlebotomy Draw Site LEFT RADIAL 10/26/17 0600: TSH &T3 &Free T4 Intrp Cancelled 10/26/17 0410: Troponin I < 0.01 10/26/17 0315: pH 7.28 *L, pCO2 90 *H, pO2 48 *L, HCO3 42 H, ABG O2 Sat (Measured) 78.0 L, P- 50 (Temp Corrected) Y, Carboxyhemoglobin 1.2 L, O2 Concentration % 2 LPM, Temperature 97.6, O2 Delivery Method N/C, Phlebotomy Draw Site LEFT RADIAL 10/25/17 2100: Urine Opiates Screen 983.00, Methadone Screen 69, Barbiturate Screen 387 H, Ur Phencyclidine Scrn < 6.00, Amphetamines Screen < 100, U Benzodiazepines Scrn > 800.0 H, Urine Cocaine Screen < 50, Urine Cannabis Screen < 5.00, Urine Color YEL, Urine Clarity HAZY H, Urine pH 6.0, Ur Specific [place] >= 1.030, Urine Protein 30 H, Urine Ketones NEG, Urine Nitrite NEG, Urine Bilirubin NEG, Urine Urobilinogen 0.2, Ur Leukocyte Esterase NEG, Ur Microscopic SEDIMENT EXAMINED, Urine RBC RARE, Urine WBC 1-3 H, Ur Epithelial Cells MANY H, Urine Bacteria MANY H, Hyaline Casts RARE H, Granular Casts RARE H, Urine Mucus FEW, Urine Hemoglobin TRACE-INTACT, Urine Glucose NEG 10/25/172052: Anion Gap 11, Estimated GFR 55 L, BUN/Creatinine Ratio 28.0 H, Glucose 91, Calcium 9.4, Total Bilirubin 0.4, AST 18, ALT 32, Alkaline Phosphatase 112, Troponin I < 0.01, Dde-U-Elzrgzhxtdz Pept 4850 H, Total Protein 6.9, Albumin 3.8, Globulin 3.1, Albumin/Globulin Ratio 1.2, TSH &T3 &Free T4 Intrp 0.653, CBC w Diff NO MAN DIFF REQ, RBC 3.81 L, MCV 101.1 H, MCH 32.6 H, RDW 15.7 H, MPV 10.5 H, Gran % 76.1 H, Lymphocytes % 13.7 L, Monocytes % 8.8, Eosinophils % 1.0, Basophils % 0.4, Absolute Granulocytes 9.1 H, Absolute Lymphocytes 1.6, Absolute Monocytes 1.0 H, Absolute Eosinophils 0.1, Absolute Basophils 0, PUBS MCHC 32.2 L Microbiology 10/26 2009 URINE ROUT: Legionella Antigen - COMP 10/26 0847 NASOPHARYN: Influenza Virus A & B Rapid Smear - COMP Recent Imaging Studies: Echocardiogram 10/27/17: 1. This was a technically difficult and limited study 2. Mild aortic sclerosis is present with no valvular stenosis or insufficiency 3. Mitral leaflet thickening is present with mild annular calcification and mild mitral insufficiency with moderate left atrial enlargement. 4. A very small posterior pericardial effusion is present which is hemodynamically insignificant. 5. The left ventricular chamber size and systolic function appear normal. There are no visible wall motion abnormalities at rest. 6. Mild enlargement of the right heart chambers is noted with mild to moderate tricuspid insufficiency and minimal pulmonic insufficiency with pulmonary hypertension and a right ventricular systolic pressure of 46 mmHg. Assessment/Plan Assessment/Plan Assessment: 1. Acute on chronic hypoxic/hypercapnic respiratory failure 2. Underlying COPD exacerbation with pulmonary hypertension and associated lower extremity edema 3. Chronic HFpEF 4. Chronic atrial fibrillation 5. History of falls; possible syncope 6. Hypertension Plan: * Would restart Lasix at her usual outpatient dose of 40 mg daily. * Dose warfarin for INR 2-3 * Continue other cardiac medications. Continue telemetry? No
--- NOTE | 2017-10-27 11:28 | PN- Pulmonary ---
Subjective HPI/Critical Care Issues: Somnolent but arousable Afib, 70-90 Subjective: No overnight events. This morning, she is saying that becuse her perjured himself, she doesn't care whether she lives or dies. She denies pruposefully overdosing on medications. Otherwise, complaining of "liver pain", neck pain, and leg pain. No SOB or CP. Review of Systems Constitutional: Reports: no symptoms. EENTM: Reports: no symptoms. Cardiovascular: Reports: no symptoms. Respiratory: Reports: no symptoms. Gastrointestinal: Reports: see HPI. Genitourinary: Reports: no symptoms. Musculoskeletal: Reports: see HPI. Skin: Reports: no symptoms. Neurological/Psychological: Reports: see HPI. Hematologic/Endocrine: Reports: no symptoms. Immunologic/Allergic: Reports: no symptoms. Objective Current Medications: Current Medications Sig/Randa Start time Last Medication Dose Route Stop Time Status Admin Acetaminophen 975 MG Q6P PRN 10/27 0845 AC PO Acetaminophen 0 .STK-MED ONE 10/26 1307 DC PO Acetaminophen 650 MG Q6P PRN 10/26 0530 DC 10/26 PO 1308 Acetaminophen 1,000 MG Q6P PRN 10/26 0530 DC 10/26 IV 2200 Acetazolamide 500 MG ONCE ONE 10/26 1400 DC 10/26 PO 10/26 1401 1501 Albuterol Sulfate 3 ML EVERY 4 HRS/AWAKE 10/26 1200 AC 10/27 INH 0846 Azithromycin 500 MG DAILY 10/26 1000 AC 10/26 Dextrose/Water 250 ML IV 1148 Ceftriaxone Sodium 1,000 MG DAILY 10/26 1000 DC 10/26 IV 1140 Diazepam 2 MG BID PRN 10/26 1630 AC PO Diltiazem HCl 180 MG BID 10/26 1000 AC 10/27 PO 0944 Fluticasone 2 PUF BID 10/26 1345 AC 10/27 Propionate INH 0944 Ibuprofen 600 MG Q6P PRN 10/26 0530 AC PO Ipratropium [place] 2.5 ML EVERY 4 HRS/AWAKE 10/26 1200 AC 10/27 INH 0846 Lidocaine 1 PAT DAILY NEEDED PRN 10/26 1115 AC EXT Metoprolol Succinate 100 MG BID 10/26 1000 AC 10/27 PO 0944 Warfarin Sodium 4 MG COUMADIN 1700 ONE 10/26 1700 DC 10/26 PO 10/26 1701 1800 Vital Signs & I&O Last 24 Hrs of Vitals and I&O: Vital Signs Date Time Temp Pulse Resp B/P B/P Pulse O2 O2 Flow FiO2 Mean Ox Delivery Rate 10/27 0944 66 148/78 10/27 0850 97 Nasal 2.0L Cannula 10/27 0600 98.3 66 20 148/78 94 10/27 0000 Nasal 3.5L Cannula 10/26 2201 98 146/86 10/26 1824 99.2 99 22 134/70 93 Nasal 3.5L Cannula 10/26 1705 94 Nasal 3.5L Cannula 10/26 1641 99.4 84 20 126/59 92 Nasal 3.5L Cannula 10/26 1436 93 Nasal 3.5L Cannula 10/26 1436 98.5 85 22 152/69 93 Nasal 3.5L Cannula 10/26 1421 98.5 85 22 152/69 93 Nasal 3.5L Cannula 10/26 1308 99.5 86 22 137/81 95 Nasal 3.5L Cannula Intake & Output 10/27 1600 10/27 0800 10/27 0000 Intake Total 100 80 Output Total 800 1850 Balance -700 -1770 Intake, Oral 100 80 Output, Urine 800 1850 Impression/Plan Impression/Plan Impression/Plan: HEENT: Pupils reactive to light; extraocular muscles intact. Mucous membranes very dry. Lungs: Diminished movement in all lung hernandez with crackles and rhonchi present. There is some light wheeze on exhalation at the bases. Cardiovascular: Irregularly irregular. Could not appreciate any murmurs. Abdomen: Soft obese, nontender to palpation. Extremities: 2+ edema 71-year-old female with past medical history significant for atrial fibrillation on Coumadin checks her INR with point of care device, history of history of congestive heart failure with preserved ejection fraction EF 65-70% on echo 09/2014 and right ventricle are systolic pressure of 46 mm of Hg, history of chronic obstructive pulmonary disease on 2 L of oxygen, obstructive sleep apnea not on CPAP, history of parotid cancer fibromyalgia schizophrenia and PTSD, history of right breast cancer status post mastectomy 15 years ago, came to emergency department for chief complaint of shortness of breath, after a fall Since she came in she was obtunded and was sig hypercarbic and was rxc with bipap now has improved, however hypersomnia persists ISSUES * Acute on chronic hypercarbic and hypoxic resp failure due to sig restrictive lung disease compounded by prob OHV with DICK,with narcotic playing a role * PRob bronchitis viral vs bacterial * Acute diastolic heart failure improving * Elevated rt hemidiaphram, with diaphram eventeration * DICK not on cpap due to pt tolerablity * PREvious wedge resection of the lung (apparently was benign, no old records available) * History of multiple lung nodules with previous ct till 2014 showing benign * Anxiety with VC dysfunction at times * Schizoaffective disorder and other psych issues * History of breast ca with lymphadema stable * Mild copd with more restricitve vent defect due to prob diaphramatic peresis and body habitus with no sig emphysema noted in the previous ct * Pafib * History of syncope and fall * Recent narcotic and diazepam use which may have caused most of her issues aswell REC Bipap now and use prn during the day, and then use daily at hs Check tsh and free t4 cont to monitor clinically Nebs prn Azithro COnt other meds No need for systemic steroids Start flovent 110 2 puff bid KEep hob up Watch for withdrawal and start benzo and narcotics at 30 -40 percent of her previous dose, if she is awake Will follow
--- NOTE | 2017-10-27 12:34 | PN- Att Addend ---
Attending Addendum Attending Brief Note Patient sitting in the chair, lethargic this morning not compliant all the time with her medications. Hernia was talking about being depressed and "hurting herself" resident ordered a sitter and psych consult patient also not willing to use the BiPAP machine when she would benefit from it area on the patient is called she wakes up and talks to you. Temp max 99 4. No other major changes. Will continue follow pulmonary's recommendations per cardiology stated she does not need the telemetry, will be transferred to the medical floor Intake & Output 10/27 1600 10/27 0400 10/26 1600 10/26 0400 10/25 1600 10/25 040 Intake Total 740 26 3419 0 Output Total 1600 1850 2700 Balance -1500 -1770 -1230 0 Intake, IV 750 Intake, Oral 100 80 720 0 Output, Urine 1600 1850 2700 Patient 264 lb Weight Current Medications Sig/Randa Start time Last Medication Dose Route Stop Time Status Admin Acetaminophen 975 MG Q6P PRN 10/27 0845 AC PO Acetaminophen 0 .STK-MED ONE 10/26 1307 DC PO Acetaminophen 650 MG Q6P PRN 10/26 0530 DC 10/26 PO 1308 Acetaminophen 1,000 MG Q6P PRN 10/26 0530 DC 10/26 IV 2200 Acetazolamide 500 MG ONCE ONE 10/26 1400 DC 10/26 PO 10/26 1401 1501 Albuterol Sulfate 3 ML EVERY 4 HRS/AWAKE 10/26 1200 AC 10/27 INH 1215 Azithromycin 500 MG DAILY 10/26 1000 AC 10/26 Dextrose/Water 250 ML IV 1148 Ceftriaxone Sodium 1,000 MG DAILY 10/26 1000 DC 10/26 IV 1140 Diazepam 2 MG BID PRN 10/26 1630 AC PO Diltiazem HCl 180 MG BID 10/26 1000 AC 10/27 PO 0944 Fluticasone 2 PUF BID 10/26 1345 AC 10/27 Propionate INH 0944 Ibuprofen 600 MG Q6P PRN 10/26 0530 AC PO Ipratropium [place] 2.5 ML EVERY 4 HRS/AWAKE 10/26 1200 AC 10/27 INH 1215 Lidocaine 1 PAT DAILY NEEDED PRN 10/26 1115 AC EXT Metoprolol Succinate 100 MG BID 10/26 1000 AC 10/27 PO 0944 Warfarin Sodium 4 MG COUMADIN 1700 ONE 10/26 1700 DC 10/26 PO 10/26 1701 1800 Laboratory Tests 10/27/17 1107: pH 7.35, pCO2 74 *H, pO2 84, HCO3 40 H, ABG O2 Sat (Measured) 95.0 L, P-50 ( Temp Corrected) YES, Carboxyhemoglobin 0.7 L, O2 Concentration % 2L, Temperature 98.3, O2 Delivery Method NC, Phlebotomy Draw Site LEFT RADIAL 10/27/17 1040: Anion Gap 12, Estimated GFR 55 L, BUN/Creatinine Ratio 32.0 H 10/26/17 1125: pH 7.42, pCO2 66 *H, pO2 57 L, HCO3 41 H, ABG O2 Sat (Measured) 90.0 L, P-50 (Temp Corrected) N, Carboxyhemoglobin 1.6, O2 Concentration % 2.5LPM, O2 Delivery Method NC, Phlebotomy Draw Site LEFT RADIAL 10/26/17 1117: Anion Gap 13, Estimated GFR > 60, BUN/Creatinine Ratio 28.8 H, Phosphorus 2.3 L, Magnesium 1.9, PT 27.4 H, INR 2.63 H, CBC w Diff MAN DIFF ORDERED, RBC 3.99 L, MCV 101.7 H, MCH 32.9 H, MCHC 32.4 L, RDW 15.3 H, MPV 10.3, Gran % 91.6 H, Lymphocytes % 5.7 L, Monocytes % 2.1, Eosinophils % 0.5, Basophils % 0.1, Absolute Granulocytes 11.0 H, Absolute Lymphocytes 0.7 L, Absolute Monocytes 0.3, Absolute Eosinophils 0.1, Absolute Basophils 0, Platelet Estimate VERIFIED BY SMEAR, Polychromasia 1+, Anisocytosis 1+, Macrocytic Cells 1+, Stomatocytes 1 + 10/26/17 1000: Troponin I < 0.01 10/26/17 0700: pH 7.34 L, pCO2 84 *H, pO2 72 L, HCO3 45 H, ABG O2 Sat (Measured) 93.0 L, Carboxyhemoglobin 1.2 L, O2 Concentration % 40, Respiration Rate 24, O2 Delivery Method BIPAP, Vent Mode ST, Expiratory Pressure 6, Inspiratory Pressure 18, Phlebotomy Draw Site LEFT RADIAL 10/26/17 0600: TSH &T3 &Free T4 Intrp Cancelled 10/26/17 0410: Troponin I < 0.01 10/26/17 0315: pH 7.28 *L, pCO2 90 *H, pO2 48 *L, HCO3 42 H, ABG O2 Sat (Measured) 78.0 L, P- 50 (Temp Corrected) Y, Carboxyhemoglobin 1.2 L, O2 Concentration % 2 LPM, Temperature 97.6, O2 Delivery Method N/C, Phlebotomy Draw Site LEFT RADIAL 10/25/172099: Urine Opiates Screen 983.00, Methadone Screen 69, Barbiturate Screen 387 H, Ur Phencyclidine Scrn < 6.00, Amphetamines Screen < 100, U Benzodiazepines Scrn > 800.0 H, Urine Cocaine Screen < 50, Urine Cannabis Screen < 5.00, Urine Color YEL, Urine Clarity HAZY H, Urine pH 6.0, Ur Specific [place] >= 1.030, Urine Protein 30 H, Urine Ketones NEG, Urine Nitrite NEG, Urine Bilirubin NEG, Urine Urobilinogen 0.2, Ur Leukocyte Esterase NEG, Ur Microscopic SEDIMENT EXAMINED, Urine RBC RARE, Urine WBC 1-3 H, Ur Epithelial Cells MANY H, Urine Bacteria MANY H, Hyaline Casts RARE H, Granular Casts RARE H, Urine Mucus FEW, Urine Hemoglobin TRACE-INTACT, Urine Glucose NEG 10/25/172052: Anion Gap 11, Estimated GFR 55 L, BUN/Creatinine Ratio 28.0 H, Glucose 91, Calcium 9.4, Total Bilirubin 0.4, AST 18, ALT 32, Alkaline Phosphatase 112, Troponin I < 0.01, Rbn-M-Mqbquchsips Pept 4850 H, Total Protein 6.9, Albumin 3.8, Globulin 3.1, Albumin/Globulin Ratio 1.2, TSH &T3 &Free T4 Intrp 0.653, CBC w Diff NO MAN DIFF REQ, RBC 3.81 L, MCV 101.1 H, MCH 32.6 H, RDW 15.7 H, MPV 10.5 H, Gran % 76.1 H, Lymphocytes % 13.7 L, Monocytes % 8.8, Eosinophils % 1.0, Basophils % 0.4, Absolute Granulocytes 9.1 H, Absolute Lymphocytes 1.6, Absolute Monocytes 1.0 H, Absolute Eosinophils 0.1, Absolute Basophils 0, PUBS MCHC 32.2 L Microbiology 10/26 2099 BLOOD: Blood Culture - RES 10/26 2009 URINE ROUT: Legionella Antigen - COMP 10/26 2009 URINE ROUT: Urine Culture - RES 10/26 1117 BLOOD: Blood Culture - RES 10/26 0847 NASOPHARYN: Influenza Virus A & B Rapid Smear - COMP 10/26 0140 URINE ROUT: Urine Culture - RES ENTEROCOCCUS Microbiology 10/26 2100 BLOOD: Blood Culture - RES 10/26 2009 URINE ROUT: Legionella Antigen - COMP 10/26 2009 URINE ROUT: Urine Culture - RES 10/26 1117 BLOOD: Blood Culture - RES 10/26 0847 NASOPHARYN: Influenza Virus A & B Rapid Smear - COMP 10/26 0140 URINE ROUT: Urine Culture - RES ENTEROCOCCUS Vital Signs Date Time Temp Pulse Resp B/P B/P Pulse O2 O2 Flow FiO2 Mean Ox Delivery Rate 10/27 1127 82 98 10/27 0944 66 148/78 10/27 0850 97 Nasal 2.0L Cannula 10/27 0600 98.3 66 20 148/78 94 10/27 0000 Nasal 3.5L Cannula 10/26 2201 98 146/86 10/26 1824 99.2 99 22 134/70 93 Nasal 3.5L Cannula 10/26 1705 94 Nasal 3.5L Cannula 10/26 1641 99.4 84 20 126/59 92 Nasal 3.5L Cannula 10/26 1436 93 Nasal 3.5L Cannula 10/26 1436 98.5 85 22 152/69 93 Nasal 3.5L Cannula 10/26 1421 98.5 85 22 152/69 93 Nasal 3.5L Cannula 10/26 1308 99.5 86 22 137/81 95 Nasal 3.5L Cannula
--- NOTE | 2017-10-27 13:55 | Cons- Psychiatry ---
Psychiatric Consult Date of Consult: 10/27/17 Reason for Consult: "? suicidal. saying that she doesn't care whether she lives" History of Present Illness: 71 F ALFREDO from home 10/25/17 with CC multiple falls. Medication adherence questionable. Per the H&P, "PMH of atrial fibrillation on Coumadin, HFpEF, COPD on 2 L of oxygen, DICK not on CPAP, history of parotid cancer, fibromyalgia, schizophrenia, and PTSD, and right breast cancer status post mastectomy 15 years ago, who comes in for CC fall." She is prescribed oxycodone 10 mg #30 for 10 days; last on 10/11/17. Also, diazepam 10 mg #30/10 days; last on 09/28/18, per [facility]. We had last seen her on 10/11/2013 for clearance to transfer to a STR. She was not suicidal, but depressed with anxiety and PTSD symptoms. We had suggested that she follow up with Dr. Vazquez after STR, which she reprots she has done. Allergies: Coded Allergies: losartan (From COZAAR) (DIARRHEA - SEVERE PER PT 06/22/16) pineapple (MAKES RASHES THAT LOOK LIKE RINGS 06/22/16) shrimp (RASH 06/22/16) tramadol (HIVES 06/22/16) duloxetine (Severe, DIARRHEA 06/22/16) Sulfa (Sulfonamide Antibiotics) (VOMITING 06/22/16) celery (PER PT VOICE GETS HOARSE 06/22/16) ciprofloxacin (From CIPRO) (HAIRS ON ARM STAND UP PER PT 06/22/16) furazolidone (NAUSEA 06/22/16) glucosamine (NAUSEA 06/22/16) mushroom (YEAST INFECTION 06/22/16) sulfamethoxazole (From SEPTRA) (VOMITING 06/22/16) trimethoprim (VOMITING 06/22/16) Current Medications: Current Medications Sig/Randa Start time Last Medication Dose Route Stop Time Status Admin Acetaminophen 975 MG Q6P PRN 10/27 0845 AC PO Acetaminophen 650 MG Q6P PRN 10/26 0530 DC 10/26 PO 1308 Acetaminophen 1,000 MG Q6P PRN 10/26 0530 DC 10/26 IV 2200 Acetazolamide 500 MG ONCE ONE 10/26 1400 DC 10/26 PO 10/26 1401 1501 Albuterol Sulfate 3 ML EVERY 4 HRS/AWAKE 10/26 1200 AC 10/27 INH 1215 Azithromycin 500 MG DAILY 10/26 1000 AC 10/26 Dextrose/Water 250 ML IV 1148 Ceftriaxone Sodium 1,000 MG DAILY 10/26 1000 DC 10/26 IV 1140 Diazepam 2 MG BID PRN 10/26 1630 AC PO Diltiazem HCl 180 MG BID 10/26 1000 AC 10/27 PO 0944 Fluticasone 2 PUF BID 10/26 1345 AC 10/27 Propionate INH 0944 Furosemide 40 MG DAILY 10/27 1300 AC PO Ibuprofen 600 MG Q6P PRN 10/26 0530 AC PO Ipratropium [place] 2.5 ML EVERY 4 HRS/AWAKE 10/26 1200 AC 10/27 INH 1215 Lidocaine 1 PAT DAILY NEEDED PRN 10/26 1115 AC EXT Metoprolol Succinate 100 MG BID 10/26 1000 AC 10/27 PO 0944 Warfarin Sodium 4 MG COUMADIN 1700 ONE 10/26 1700 DC 10/26 PO 10/26 1701 1800 Past History Past Medical History Neurological: vertigo EENT: salivary gland disorders, L SALIVARY GLAND CANCER Cardiovascular: AFIB, hypertension Respiratory: asthma, COPD, obstructive sleep apnea, PLEURISY O2 2L DEP PRN AND @ NITE Gastrointestinal: irritable bowel syndrome Hepatic: NONE Renal: UTI Musculoskeletal: fibromyalgia, osteoarthritis Psychiatric: depression, schizophrenia, PTSD Endocrine: NONE Blood Disorders: NONE Cancer(s): LUNG, R BREAST CA LEFT SALIVARY GLAND CA 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 Brandon Vazquez, for approx. 19 years Reason for Treatment Depression, possible "schizoid" d/o (pt report in 2013) Dates of Treatment See above Response to Treatment Unknown Diagnosis: Major Depression Anxiety PTSD Possible psychotic d/o Risk Factors: age (under 24/over 65), chronic/serious med cond., high anxiety/ distress, history of suicide atmpts, SA/MH hospitalized, isolate/no social support, lives alone, limited support Substance Use/Abuse History Drug Use/Abuse Substances Used/Abused No (Not evaluated) Assessment/Plan Mental Status Orientation: Person, Place, Situation Affect: Depressed Speech: Mumbled, Soft (Volume trails off. ) Neuro-vegetative: Energy Increased, Sleep Disturbance Mental Status Exam: The patient is lethargic on BiPAP, with mumbled, unintelligible speech. After BiPAP was removed and NC oxygen replaced, she was able to answer a few questions ; interview limited by continued lethargy. She ia oriented. She denies auditory or visual hallucinations; presents no ketty delusions. She denies suicidal thoughts, which was clearly heard. She promises to remain safe in the hospital. Lab Results: Laboratory Tests 10/27 10/27 1107 1040 Blood Gas pH (7.35 - 7.45 PH) 7.35 pCO2 (35 - 45 TORR) 74 *H pO2 (80 - 100 TORR) 84 HCO3 (21 - 28 MEQ/L) 40 H ABG O2 Sat (Measured) (>96.0 %) 95.0 L P-50 (Temp Corrected) YES Carboxyhemoglobin (1.5 - 5.0 %) 0.7 L O2 Concentration % 2L Temperature (97.0 - 100.0 FARH) 98.3 O2 Delivery Method NC Chemistry Sodium (137 - 145 mmol/L) 142 Potassium (3.5 - 5.1 mmol/L) 4.2 Chloride (98 - 107 mmol/L) 95 L Carbon Dioxide (22 - 30 mmol/L) 35 H Anion Gap (5 - 16) 12 BUN (7 - 17 mg/dL) 32 H Creatinine (0.5 - 1.0 mg/dL) 1.0 Estimated GFR (>60 ml/min) 55 L BUN/Creatinine Ratio (7 - 25 %) 32.0 H Miscellaneous Phlebotomy Draw Site LEFT RADIAL Diffential Diagnosis: Major Depression Anxiety PTSD Possible psychotic d/o Impression: Limited interview, but patient denies any suicidal ideation. She promises to stay safe in the hospital. We expect to have a more thorough evaluation tomorrow. Provisional Treatment Plan: 1. Patient promises to remain safe. Denies suicidal ideation. 2. The patient has been on diazepam 10 mg up to 3X/day at home, per CTP, and is currently on diazepam 2 mg 2X/day PRN. The reduced PRN dosing above may not be protective against seizure. Please consider making this scheduled, but hold for oversedation or respiratory depression. We will visit the patient again tomorrow.
[2017-10-27 15:44] VITALS: BP 130/0
[2017-10-27 15:55] LABS: ABSOLUTE BASOPHIL COUNT 0 /CUMM (0.0-0.2); ABSOLUTE EOSINOPHIL COUNT 0 /CUMM (0.0-0.7); ABSOLUTE GRANULOCYTE CT 11.1 /CUMM (1.4-6.5); ABSOLUTE LYMPH COUNT 1.7 /CUMM (1.2-3.4); ABSOLUTE MONOCYTE COUNT 0.9 /CUMM (0.10-0.60); BASOPHIL % 0.2 % (0.0-2.0); EOSINOPHIL % 0.3 % (0-5); GRANULOCYTE % 80.6 % (42.2-75.2); HEMATOCRIT 40.5 % (37-47); MEAN CORPUSCULAR HGB 32.4 PG (27.0-31.0); MEAN CORPUSCULAR VOLUME 101.2 FL (81.0-99.0); RBC DISTRIBUTION WIDTH 15.4 % (11.5-14.5); WHITE BLOOD CELL COUNT 13.8 /CUMM (4.8-10.8)
[2017-10-27 16:15] LABS: PT 20.3 SEC (9.4-12.5)
[2017-10-27 16:20] LABS: PLATELET COUNT 210 /CUMM (130-400)
[2017-10-28 06:43] VITALS: BP 142/82
--- NOTE | 2017-10-28 07:00 | PN- Housestaff ---
Subjective Follow-up For: Obesity hypoventilation syndrome, respiratory failure Tele-Events Since Last Visit: not ontele Subjective: No overnight events. Yesterday, she passed out due to hypercarbia. Was on BiPAP until the evening. She did not use the CPAP overnight. Feeling ok this AM, doesn 't want to use the CPAP. Review of Systems Constitutional: Reports: no symptoms. EENTM: Reports: no symptoms. Cardiovascular: Reports: no symptoms. Respiratory: Reports: see HPI. Gastrointestinal: Reports: no symptoms. Genitourinary: Reports: no symptoms. Musculoskeletal: Reports: no symptoms. Skin: Reports: no symptoms. Neurological/Psychological: Reports: no symptoms. Hematologic/Endocrine: Reports: no symptoms. Immunologic/Allergic: Reports: no symptoms. Objective Last 24 Hrs of Vital Signs/I&O Vital Signs Date Time Temp Pulse Resp B/P B/P Pulse O2 O2 Flow FiO2 Mean Ox Delivery Rate 10/28 0643 98.4 83 20 142/82 95 Nasal Cannula 10/28 0058 104 93 10/28 0000 Nasal 2.0L Cannula 10/27 2208 98.9 72 20 96 Nasal 2.0L Cannula 10/27 2117 83 140/60 10/27 1614 93 Nasal 2.0L Cannula 10/27 1600 Nasal 2.0L Cannula 10/27 1544 98.3 83 22 130/0 93 10/27 1127 82 98 10/27 0944 66 148/78 10/27 0850 97 Nasal 2.0L Cannula 10/27 0800 94 Nasal 2.0L Cannula Intake & Output 10/28 0800 10/28 0000 10/27 1600 Intake Total 240 200 850 Output Total 500 500 800 Balance -260 -300 50 Intake, IV 250 Intake, Oral 240 200 600 Number 1 0 Bowel Movements Output, Urine 500 500 800 Physical Exam General Appearance: Alert, Oriented X3, Cooperative, No Acute Distress Cardiovascular: Regular Rate, Normal S1, Normal S2 Lungs: crackles, wheezing Abdomen: Normal Bowel Sounds, Soft, No Tenderness Extremities: nonpitting edema Current Medications: Current Medications Sig/Randa Start time Last Medication Dose Route Stop Time Status Admin Acetaminophen 975 MG Q6P PRN 10/27 0845 AC 10/28 PO 0151 Acetaminophen 650 MG Q6P PRN 10/26 0530 DC 10/26 PO 1308 Acetaminophen 1,000 MG Q6P PRN 10/26 0530 DC 10/26 IV 2200 Albuterol Sulfate 3 ML EVERY 4 HRS/AWAKE 10/26 1200 AC 10/27 INH 1925 Azithromycin 500 MG 1600 10/28 1600 AC Dextrose/Water 250 ML IV Azithromycin 500 MG DAILY 10/26 1000 DC 10/27 Dextrose/Water 250 ML IV 1622 Diazepam 2 MG BID PRN 10/26 1630 AC PO Diltiazem HCl 180 MG BID 10/26 1000 AC 10/27 PO 2111 Fluticasone 2 PUF BID 10/26 1345 AC 10/27 Propionate INH 2119 Furosemide 40 MG DAILY 10/27 1300 AC 10/27 PO 1413 Ibuprofen 600 MG Q6P PRN 10/26 0530 AC PO Ipratropium [place] 2.5 ML EVERY 4 HRS/AWAKE 10/26 1200 AC 10/27 INH 1925 Lidocaine 1 PAT DAILY NEEDED PRN 10/26 1115 AC EXT Metoprolol Succinate 100 MG BID 10/26 1000 AC 10/27 PO 2117 Warfarin Sodium 6 MG COUMADIN 1700 ONE 10/27 1700 DC 10/27 PO 10/27 1701 1900 Last 24 Hrs of Lab/Efren Results Last 24 Hrs of Labs/Mics: Laboratory Tests 10/28/17 0619: Sodium Pending, Potassium Pending, Chloride Pending, Carbon Dioxide Pending, Anion Gap Pending, BUN Pending, Creatinine Pending, BUN/Creatinine Ratio Pending , PT Pending, INR Pending, CBC w Diff Pending, WBC Pending, RBC Pending, Hgb Pending, Hct Pending, MCV Pending, MCH Pending, MCHC Pending, RDW Pending, Plt Count Pending, MPV Pending 10/27/17 1506: PT 20.3 H, INR 1.95 H, CBC w Diff NO MAN DIFF REQ, RBC 4.00 L, MCV 101.2 H, MCH 32.4 H, MCHC 32.0 L, RDW 15.4 H, MPV 11.0 H, Gran % 80.6 H, Lymphocytes % 12.3 L, Monocytes % 6.6, Eosinophils % 0.3, Basophils % 0.2, Absolute Granulocytes 11.1 H, Absolute Lymphocytes 1.7, Absolute Monocytes 0.9 H, Absolute Eosinophils 0, Absolute Basophils 0 10/27/17 1107: pH 7.35, pCO2 74 *H, pO2 84, HCO3 40 H, ABG O2 Sat (Measured) 95.0 L, P-50 ( Temp Corrected) YES, Carboxyhemoglobin 0.7 L, O2 Concentration % 2L, Temperature 98.3, O2 Delivery Method NC, Phlebotomy Draw Site LEFT RADIAL 10/27/17 1040: Anion Gap 12, Estimated GFR 55 L, BUN/Creatinine Ratio 32.0 H Assessment/Plan Assessment: This is a 71-year-old female with past medical history significant for COPD, CHF , fibromyalgia, atrial fibrillation, who comes in for chief complaint of fall, found to be in hypercarbic respiratory failure with marked improvement status post BiPAP. Problem list: 1. Acute hypoxic hypercarbic respiratory failure 2. Accidental opioid overdose 3. Fall #Acute hypoxic hypercarbic respiratory failure: Patient presented with respiratory distress and ABG showing respiratory acidosis with hypercarbia. Head CT/lumbar CT negative. 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 She markedly improved overnight status post BiPAP and naloxone administration. Her respiratory failure was likely secondary to opioid overdose. Psych evaluated and does not think she has suicidal ideation. Yesterday, she again became drowsy and ABG showed hypercarbia. She was placed on BiPAP and has since improved. She is still refusing to use the CPAP machine. -Continue fluticasone, ipratropium, albuterol -Oxygen therapy: Patient is on 2 L nasal cannula at home. -Azithromycin: Consider discontinuing -Appreciate psychiatry recommendations -Watch for withdrawal -CPAP at night -Appreciate pulmonology recommendations: She'll need to follow-up with Dr. Rubio. #Chronic medical problems: -Continue home medications DVT prophylaxis with warfarin Heart healthy diet Full code Problem List: 1. Opioid overdose Pain Ratin Pain Location: no pain Pain Goal: Remain pain free Pain Plan: see a/p Tomorrow's Labs & Rationales: none
[2017-10-28 07:55] LABS: ABSOLUTE BASOPHIL COUNT 0 /CUMM (0.0-0.2); ABSOLUTE EOSINOPHIL COUNT 0.2 /CUMM (0.0-0.7); ABSOLUTE GRANULOCYTE CT 8.4 /CUMM (1.4-6.5); ABSOLUTE LYMPH COUNT 1.9 /CUMM (1.2-3.4); ABSOLUTE MONOCYTE COUNT 0.8 /CUMM (0.10-0.60); BASOPHIL % 0.2 % (0.0-2.0); GRANULOCYTE % 73.8 % (42.2-75.2); HEMATOCRIT 38.3 % (37-47); MEAN CORPUSCULAR HGB 32.9 PG (27.0-31.0); MEAN CORPUSCULAR HGB CONC 32.7 G/DL (33.0-37.0); MEAN CORPUSCULAR VOLUME 100.6 FL (81.0-99.0); MEAN PLATELET VOLUME 10.4 FL (7.4-10.4); PLATELET COUNT 174 /CUMM (130-400); RBC DISTRIBUTION WIDTH 16.1 % (11.5-14.5); RED BLOOD CELL CT 3.81 /CUMM (4.20-5.40); WHITE BLOOD CELL COUNT 11.4 /CUMM (4.8-10.8)
[2017-10-28 08:27] LABS: PT 19.7 SEC (9.4-12.5)
--- NOTE | 2017-10-28 09:51 | PN- Pulmonary ---
Subjective HPI/Critical Care Issues: No overnight events. Yesterday, she was somnolent due to hypercarbia. Was on BiPAP until the evening. She did not use the CPAP overnight. Feeling ok this AM, doesn't want to use the CPAP. Review of Systems Constitutional: Reports: no symptoms. EENTM: Reports: no symptoms. Cardiovascular: Reports: no symptoms. Respiratory: Reports: see HPI. Gastrointestinal: Reports: no symptoms. Genitourinary: Reports: no symptoms. Musculoskeletal: Reports: no symptoms. Skin: Reports: no symptoms. Neurological/Psychological: Reports: no symptoms. Hematologic/Endocrine: Reports: no symptoms. Immunologic/Allergic: Reports: no symptoms. Objective Current Medications: Current Medications Sig/Randa Start time Last Medication Dose Route Stop Time Status Admin Acetaminophen 650 MG .STK-MED ONE 10/28 0138 DC PO 10/28 0139 Acetaminophen 975 MG Q6P PRN 10/27 0845 AC 10/28 PO 0151 Albuterol Sulfate 3 ML EVERY 4 HRS/AWAKE 10/26 1200 AC 10/28 INH 0820 Azithromycin 500 MG 1600 10/28 1600 AC Dextrose/Water 250 ML IV Azithromycin 500 MG DAILY 10/26 1000 DC 10/27 Dextrose/Water 250 ML IV 1622 Diazepam 2 MG BID PRN 10/26 1630 AC PO Diltiazem HCl 180 MG BID 10/26 1000 AC 10/28 PO 0931 Fluticasone 2 PUF BID 10/26 1345 AC 10/28 Propionate INH 0931 Furosemide 40 MG DAILY 10/27 1300 AC 10/28 PO 0931 Ibuprofen 600 MG Q6P PRN 10/26 0530 AC PO Ipratropium [employer] 2.5 ML EVERY 4 HRS/AWAKE 10/26 1200 AC 10/28 INH 0820 Lidocaine 1 PAT DAILY NEEDED PRN 10/26 1115 AC EXT Metoprolol Succinate 100 MG BID 10/26 1000 AC 10/28 PO 0930 Warfarin Sodium 7 MG COUMADIN 1700 ONE 10/28 1700 AC PO 10/28 1701 Warfarin Sodium 6 MG COUMADIN 1700 ONE 10/27 1700 DC 10/27 PO 10/27 1701 1900 Vital Signs & I&O Last 24 Hrs of Vitals and I&O: Vital Signs Date Time Temp Pulse Resp B/P B/P Pulse O2 O2 Flow FiO2 Mean Ox Delivery Rate 10/28 09 142/82 10/28 0800 Nasal 2.0L Cannula 10/28 0643 98.4 83 20 142/82 95 Nasal Cannula 10/28 0058 104 93 10/28 0000 Nasal 2.0L Cannula 10/27 2208 98.9 72 20 96 Nasal 2.0L Cannula 10/27 2117 83 140/60 10/27 1614 93 Nasal 2.0L Cannula 10/27 1600 Nasal 2.0L Cannula 10/27 1544 98.3 83 22 130/0 93 10/27 1127 82 98 Intake & Output 10/28 1600 10/28 0800 10/28 0000 Intake Total 240 200 Output Total 500 500 Balance -260 -300 Intake, Oral 240 200 Number 1 Bowel Movements Output, Urine 500 500 Impression/Plan Impression/Plan Impression/Plan: HEENT: Pupils reactive to light; extraocular muscles intact. Mucous membranes very dry. Lungs: Diminished movement in all lung hernandez with crackles and rhonchi present. There is some light wheeze on exhalation at the bases. Cardiovascular: Irregularly irregular. Could not appreciate any murmurs. Abdomen: Soft obese, nontender to palpation. Extremities: 2+ edema 71-year-old female with past medical history significant for atrial fibrillation on Coumadin checks her INR with point of care device, history of history of congestive heart failure with preserved ejection fraction EF 65-70% on echo 09/2014 and right ventricle are systolic pressure of 46 mm of Hg, history of chronic obstructive pulmonary disease on 2 L of oxygen, obstructive sleep apnea not on CPAP, history of parotid cancer fibromyalgia schizophrenia and PTSD, history of right breast cancer status post mastectomy 15 years ago, came to emergency department for chief complaint of shortness of breath, after a fall Since she came in she was obtunded and was sig hypercarbic and was rxc with bipap now has improved, however hypersomnia persists ISSUES * Acute on chronic hypercarbic and hypoxic resp failure due to sig restrictive lung disease compounded by prob OHV with DICK,with narcotic playing a role * PRob bronchitis viral vs bacterial * Acute diastolic heart failure improving * Elevated rt hemidiaphram, with diaphram eventeration * DICK not on cpap due to pt tolerablity * PREvious wedge resection of the lung (apparently was benign, no old records available) * History of multiple lung nodules with previous ct till 2014 showing benign * Anxiety with VC dysfunction at times * Schizoaffective disorder and other psych issues * History of breast ca with lymphadema stable * Mild copd with more restricitve vent defect due to prob diaphramatic peresis and body habitus with no sig emphysema noted in the previous ct * Pafib * History of syncope and fall * Recent narcotic and diazepam use which may have caused most of her issues aswell REC Bipap at hs if pt permits cont to monitor clinically Nebs prn Azithro for five days COnt other meds No need for systemic steroids Start flovent 110 2 puff bid KEep hob up Watch for withdrawal and start benzo and narcotics at 30 -40 percent of her previous dose, if she is awake Will follow
--- NOTE | 2017-10-28 10:49 | Patient Discharge Instructions ---
Discharge Instructions General Discharge Information You were seen/treated for: Respiratory failure secondary to opioid overdose Watch for these problems: Shortness of breath, fever, chest pain Special Instructions: Please take all medications as directed. Please follow-up with primary care. Please follow-up with pulmonology. Please use your CPAP machine at night. Diet Continue normal diet: Yes Activity Full Activity/No Limits: Yes Acute Coronary Syndrome Inclusion Criteria At DC or during hospital stay patient has or had the following: ACS DIAGNOSIS No Discharge Core Measures Meds if any: Prescribed or Continued at Discharge Meds if any: NOT Prescribed or Continued at Discharge Congestive Heart Failure Inclusion Criteria At DC or during hospital stay patient has or had the following: CHF DIAGNOSIS No Discharge Core Measures Meds if any: Prescribed or Continued at Discharge Meds if any: NOT Prescribed or Continued at Discharge Cerebrovascular accident Inclusion Criteria At DC or during hospital stay patient has or had the following: CVA/TIA Diagnosis No Discharge Core Measures Meds if any: Prescribed or Continued at Discharge Meds if any: NOT Prescribed or Continued at Discharge Venous thromboembolism Inclusion Criteria VTE Diagnosis No VTE Type NONE VTE Confirmed by (Test) NONE Discharge Core Measures - Per Current guidelines, there needs to be overlap - treatment for the first 5 days of Warfarin therapy. - If discharged on Warfarin prior to 5 days of - overlap therapy, the patient will need to be - assessed for post discharge needs including - *Post discharge parental anticoagulation - *Warfarin and/or parental anticoagulation education - *Follow up date to check INR post discharge At least 5 days overlap therapy as Inpatient No Meds if any: Prescribed or Continued at Discharge Note: Overlap Therapy is Warfarin and Anticoagulant Meds if any: NOT Prescribed or Continued at Discharge
--- NOTE | 2017-10-28 12:10 | PN- Cardiology ---
Subjective Subjective: Cardiac status stable. No new issues. Objective Vital Signs and I&Os Vital Signs Date Time Temp Pulse Resp B/P B/P Pulse O2 O2 Flow FiO2 Mean Ox Delivery Rate 10/28 1131 Nasal 2.0L Cannula 10/28 0930 142/82 10/28 0800 Nasal 2.0L Cannula 10/28 0643 98.4 83 20 142/82 95 Nasal Cannula 10/28 0058 104 93 10/28 0000 Nasal 2.0L Cannula 10/27 2208 98.9 72 20 96 Nasal 2.0L Cannula 10/27 2117 83 140/60 10/27 1614 93 Nasal 2.0L Cannula 10/27 1600 Nasal 2.0L Cannula 10/27 1544 98.3 83 22 130/0 93 Intake & Output 10/28 1600 10/28 0800 10/28 0000 10/27 1600 10/27 0800 10/27 0000 Intake Total 240 200 850 100 80 Output Total 250 500 500 228 267 6007 Balance -250 -260 -300 50 -700 -1770 Intake, IV 250 Intake, Oral 240 200 600 100 80 Number 2 1 0 Bowel Movements Output, Urine 250 500 500 014 247 4236 Current Medications: Current Medications Sig/Randa Start time Last Medication Dose Route Stop Time Status Admin Acetaminophen 650 MG .STK-MED ONE 10/28 0138 DC PO 10/28 0139 Acetaminophen 975 MG Q6P PRN 10/27 0845 AC 10/28 PO 0151 Albuterol Sulfate 3 ML EVERY 4 HRS/AWAKE 10/26 1200 AC 10/28 INH 1157 Azithromycin 500 MG 1600 10/28 1600 AC Dextrose/Water 250 ML IV Azithromycin 500 MG DAILY 10/26 1000 DC 10/27 Dextrose/Water 250 ML IV 1622 Diazepam 2 MG BID PRN 10/26 1630 AC PO Diltiazem HCl 180 MG BID 10/26 1000 AC 10/28 PO 0931 Fluticasone 2 PUF BID 10/26 1345 AC 10/28 Propionate INH 0931 Furosemide 40 MG DAILY 10/27 1300 AC 10/28 PO 0931 Ibuprofen 600 MG Q6P PRN 10/26 0530 AC PO Ipratropium [place] 2.5 ML EVERY 4 HRS/AWAKE 10/26 1200 AC 10/28 INH 1157 Lidocaine 1 PAT DAILY NEEDED PRN 10/26 1115 AC EXT Metoprolol Succinate 100 MG BID 10/26 1000 AC 10/28 PO 0930 Warfarin Sodium 7 MG COUMADIN 1700 ONE 10/28 1700 AC PO 10/28 1701 Warfarin Sodium 6 MG COUMADIN 1700 ONE 10/27 1700 DC 10/27 PO 10/27 170 1900 Results Last 48 Hrs of Labs/Mics: Laboratory Tests 10/28/17 0619: Anion Gap 11, Estimated GFR 55 L, BUN/Creatinine Ratio 32.0 H, PT 19.7 H, INR 1.89 H, CBC w Diff NO MAN DIFF REQ, RBC 3.81 L, MCV 100.6 H, MCH 32.9 H, MCHC 32.7 L, RDW 16.1 H, MPV 10.4, Gran % 73.8, Lymphocytes % 16.6 L, Monocytes % 7.4, Eosinophils % 2.0, Basophils % 0.2, Absolute Granulocytes 8.4 H, Absolute Lymphocytes 1.9, Absolute Monocytes 0.8 H, Absolute Eosinophils 0.2 , Absolute Basophils 0 10/27/17 1506: PT 20.3 H, INR 1.95 H, CBC w Diff NO MAN DIFF REQ, RBC 4.00 L, MCV 101.2 H, MCH 32.4 H, MCHC 32.0 L, RDW 15.4 H, MPV 11.0 H, Gran % 80.6 H, Lymphocytes % 12.3 L, Monocytes % 6.6, Eosinophils % 0.3, Basophils % 0.2, Absolute Granulocytes 11.1 H, Absolute Lymphocytes 1.7, Absolute Monocytes 0.9 H, Absolute Eosinophils 0, Absolute Basophils 0 10/27/17 1107: pH 7.35, pCO2 74 *H, pO2 84, HCO3 40 H, ABG O2 Sat (Measured) 95.0 L, P-50 ( Temp Corrected) YES, Carboxyhemoglobin 0.7 L, O2 Concentration % 2L, Temperature 98.3, O2 Delivery Method NC, Phlebotomy Draw Site LEFT RADIAL 10/27/17 1040: Anion Gap 12, Estimated GFR 55 L, BUN/Creatinine Ratio 32.0 H Microbiology 10/26 2009 URINE ROUT: Legionella Antigen - COMP Assessment/Plan Assessment/Plan Assessment: 1. Acute on chronic hypoxic/hypercapnic respiratory failure 2. Underlying COPD exacerbation with pulmonary hypertension and associated lower extremity edema 3. Chronic HFpEF 4. Chronic atrial fibrillation 5. History of falls; possible syncope 6. Hypertension Plan: * Continue current medications * Dose warfarin for INR 2-3 * Outpatient follow-up with me in 4-6 weeks. Continue telemetry? No
--- NOTE | 2017-10-28 13:16 | PN- Att Addend ---
Attending Addendum Attending Brief Note No major issues. Patient wakes up easily and keeps a conversation not short of breath. Patient was seen by pulmonary and she is cleared to be discharged. The patient wants to go home. manager of administration will discuss with patient all the options and start disposition plans see the CMR W 10 Intake & Output 10/28 1600 10/28 0400 10/27 1600 10/27 0400 10/26 1600 10/26 0400 Intake Total 240 200 172 18 0631 0 Output Total 766 407 9959 1850 2700 Balance -510 -300 -650 -1770 -1230 0 Intake, IV 250 750 Intake, Oral 240 200 700 80 720 0 Number 2 1 0 Bowel Movements Output, Urine 568 325 1633 1850 2700 Patient 264 lb Weight Current Medications Sig/Randa Start time Last Medication Dose Route Stop Time Status Admin Acetaminophen 650 MG .STK-MED ONE 10/28 0138 DC PO 10/28 0139 Acetaminophen 975 MG Q6P PRN 10/27 0845 AC 10/28 PO 0151 Albuterol Sulfate 3 ML EVERY 4 HRS/AWAKE 10/26 1200 AC 10/28 INH 1157 Azithromycin 500 MG 1600 10/28 1600 AC Dextrose/Water 250 ML IV Azithromycin 500 MG DAILY 10/26 1000 DC 10/27 Dextrose/Water 250 ML IV 1622 Diazepam 2 MG BID PRN 10/26 1630 AC PO Diltiazem HCl 180 MG BID 10/26 1000 AC 10/28 PO 0931 Fluticasone 2 PUF BID 10/26 1345 AC 10/28 Propionate INH 0931 Furosemide 40 MG DAILY 10/27 1300 AC 10/28 PO 0931 Ibuprofen 600 MG Q6P PRN 10/26 0530 AC PO Ipratropium [place] 2.5 ML EVERY 4 HRS/AWAKE 10/26 1200 AC 10/28 INH 1157 Lidocaine 1 PAT DAILY NEEDED PRN 10/26 1115 AC EXT Metoprolol Succinate 100 MG BID 10/26 1000 AC 10/28 PO 0930 Warfarin Sodium 7 MG COUMADIN 1700 ONE 10/28 1700 AC PO 10/28 1701 Warfarin Sodium 6 MG COUMADIN 1700 ONE 10/27 1700 DC 10/27 PO 10/27 1701 1900 Laboratory Tests 10/28/17 0619: Anion Gap 11, Estimated GFR 55 L, BUN/Creatinine Ratio 32.0 H, PT 19.7 H, INR 1.89 H, CBC w Diff NO MAN DIFF REQ, RBC 3.81 L, MCV 100.6 H, MCH 32.9 H, MCHC 32.7 L, RDW 16.1 H, MPV 10.4, Gran % 73.8, Lymphocytes % 16.6 L, Monocytes % 7.4, Eosinophils % 2.0, Basophils % 0.2, Absolute Granulocytes 8.4 H, Absolute Lymphocytes 1.9, Absolute Monocytes 0.8 H, Absolute Eosinophils 0.2 , Absolute Basophils 0 10/27/17 1506: PT 20.3 H, INR 1.95 H, CBC w Diff NO MAN DIFF REQ, RBC 4.00 L, MCV 101.2 H, MCH 32.4 H, MCHC 32.0 L, RDW 15.4 H, MPV 11.0 H, Gran % 80.6 H, Lymphocytes % 12.3 L, Monocytes % 6.6, Eosinophils % 0.3, Basophils % 0.2, Absolute Granulocytes 11.1 H, Absolute Lymphocytes 1.7, Absolute Monocytes 0.9 H, Absolute Eosinophils 0, Absolute Basophils 0 10/27/17 1107: pH 7.35, pCO2 74 *H, pO2 84, HCO3 40 H, ABG O2 Sat (Measured) 95.0 L, P-50 ( Temp Corrected) YES, Carboxyhemoglobin 0.7 L, O2 Concentration % 2L, Temperature 98.3, O2 Delivery Method NC, Phlebotomy Draw Site LEFT RADIAL 10/27/17 1040: Anion Gap 12, Estimated GFR 55 L, BUN/Creatinine Ratio 32.0 H 10/26/17 1125: pH 7.42, pCO2 66 *H, pO2 57 L, HCO3 41 H, ABG O2 Sat (Measured) 90.0 L, P-50 (Temp Corrected) N, Carboxyhemoglobin 1.6, O2 Concentration % 2.5LPM, O2 Delivery Method NC, Phlebotomy Draw Site LEFT RADIAL 10/26/17 1117: Anion Gap 13, Estimated GFR > 60, BUN/Creatinine Ratio 28.8 H, Phosphorus 2.3 L, Magnesium 1.9, TSH 0.343, Free T4 1.41, PT 27.4 H, INR 2.63 H, CBC w Diff MAN DIFF ORDERED, RBC 3.99 L, MCV 101.7 H, MCH 32.9 H, MCHC 32.4 L, RDW 15.3 H, MPV 10.3, Gran % 91.6 H, Lymphocytes % 5.7 L, Monocytes % 2.1, Eosinophils % 0.5, Basophils % 0.1, Absolute Granulocytes 11.0 H, Absolute Lymphocytes 0.7 L, Absolute Monocytes 0.3, Absolute Eosinophils 0.1, Absolute Basophils 0, Platelet Estimate VERIFIED BY SMEAR, Polychromasia 1+, Anisocytosis 1+, Macrocytic Cells 1+, Stomatocytes 1+ 10/26/17 1000: Troponin I < 0.01 10/26/17 0700: pH 7.34 L, pCO2 84 *H, pO2 72 L, HCO3 45 H, ABG O2 Sat (Measured) 93.0 L, Carboxyhemoglobin 1.2 L, O2 Concentration % 40, Respiration Rate 24, O2 Delivery Method BIPAP, Vent Mode ST, Expiratory Pressure 6, Inspiratory Pressure 18, Phlebotomy Draw Site LEFT RADIAL 10/26/17 0600: TSH &T3 &Free T4 Intrp Cancelled 10/26/17 0410: Troponin I < 0.01 10/26/17 0315: pH 7.28 *L, pCO2 90 *H, pO2 48 *L, HCO3 42 H, ABG O2 Sat (Measured) 78.0 L, P- 50 (Temp Corrected) Y, Carboxyhemoglobin 1.2 L, O2 Concentration % 2 LPM, Temperature 97.6, O2 Delivery Method N/C, Phlebotomy Draw Site LEFT RADIAL 10/25/17 2100: Urine Opiates Screen 983.00, Methadone Screen 69, Barbiturate Screen 387 H, Ur Phencyclidine Scrn < 6.00, Amphetamines Screen < 100, U Benzodiazepines Scrn > 800.0 H, Urine Cocaine Screen < 50, Urine Cannabis Screen < 5.00, Urine Color YEL, Urine Clarity HAZY H, Urine pH 6.0, Ur Specific [place] >= 1.030, Urine Protein 30 H, Urine Ketones NEG, Urine Nitrite NEG, Urine Bilirubin NEG, Urine Urobilinogen 0.2, Ur Leukocyte Esterase NEG, Ur Microscopic SEDIMENT EXAMINED, Urine RBC RARE, Urine WBC 1-3 H, Ur Epithelial Cells MANY H, Urine Bacteria MANY H, Hyaline Casts RARE H, Granular Casts RARE H, Urine Mucus FEW, Urine Hemoglobin TRACE-INTACT, Urine Glucose NEG 10/25/172052: Anion Gap 11, Estimated GFR 55 L, BUN/Creatinine Ratio 28.0 H, Glucose 91, Calcium 9.4, Total Bilirubin 0.4, AST 18, ALT 32, Alkaline Phosphatase 112, Troponin I < 0.01, Klg-W-Zhwwmeejrnx Pept 4850 H, Total Protein 6.9, Albumin 3.8, Globulin 3.1, Albumin/Globulin Ratio 1.2, TSH &T3 &Free T4 Intrp 0.653, CBC w Diff NO MAN DIFF REQ, RBC 3.81 L, MCV 101.1 H, MCH 32.6 H, RDW 15.7 H, MPV 10.5 H, Gran % 76.1 H, Lymphocytes % 13.7 L, Monocytes % 8.8, Eosinophils % 1.0, Basophils % 0.4, Absolute Granulocytes 9.1 H, Absolute Lymphocytes 1.6, Absolute Monocytes 1.0 H, Absolute Eosinophils 0.1, Absolute Basophils 0, PUBS MCHC 32.2 L Microbiology 10/26 2099 BLOOD: Blood Culture - RES 10/26 2009 URINE ROUT: Legionella Antigen - COMP 10/26 2009 URINE ROUT: Urine Culture - CAN Cancelled: DUPLICATE 10/26 1117 BLOOD: Blood Culture - RES 10/26 0847 NASOPHARYN: Influenza Virus A & B Rapid Smear - COMP 10/26 0140 URINE ROUT: Urine Culture - COMP ENTEROCOCCUS Microbiology 10/26 2099 BLOOD: Blood Culture - RES 10/26 2009 URINE ROUT: Legionella Antigen - COMP 10/26 2009 URINE ROUT: Urine Culture - CAN Cancelled: DUPLICATE 10/26 1117 BLOOD: Blood Culture - RES 10/26 0847 NASOPHARYN: Influenza Virus A & B Rapid Smear - COMP 10/26 0140 URINE ROUT: Urine Culture - COMP ENTEROCOCCUS Vital Signs Date Time Temp Pulse Resp B/P B/P Pulse O2 O2 Flow FiO2 Mean Ox Delivery Rate 10/28 1131 Nasal 2.0L Cannula 10/28 0930 142/82 10/28 0800 Nasal 2.0L Cannula 10/28 0643 98.4 83 20 142/82 95 Nasal Cannula 10/28 0058 104 93 10/28 0000 Nasal 2.0L Cannula 10/27 2208 98.9 72 20 96 Nasal 2.0L Cannula 10/27 2117 83 140/60 10/27 1614 93 Nasal 2.0L Cannula 10/27 1600 Nasal 2.0L Cannula 10/27 1544 98.3 83 22 130/0 93
[2017-10-28 14:49] VITALS: BP 132/60
--- NOTE | 2017-10-28 16:01 | Discharge Summary ---
Visit Information Visit Dates Admission Date: 10/26/17 Discharge Date: 10/28/2017 Hospital Course Course Attending Physician: Edgar Suazo MD Primary Care Physician: Lakeisha DUEÑAS,[facility] Course: This is a 71 yo female with PMH of atrial fibrillation on Coumadin, HFpEF, COPD on 2 L of oxygen, DICK not on CPAP, history of parotid cancer, fibromyalgia, schizophrenia, and PTSD, and right breast cancer status post mastectomy 15 years ago, who comes in for CC fall. shed been short of breath since discharge from [facility] for COPD exacerbation about a month ago. She cannot remember much about the fall other than it happened twice . She did endorse or shortness of breath when walking and she stated that she is sleeping with head of bed more upright. ROS pertinent for shortness of breath, orthopnea, palpitations, fall, loss of consciousness, denies any headache, nausea, vomiting, diarrhea, chest pain, loss of bladder or bowel function, or witnessed episode of seizure. Vital Signs Date Time Temp Pulse Resp B/P B/P Pulse O2 O2 Flow FiO2 Mean Ox Delivery Rate 10/26 0531 87 96 10/26 0528 79 98 10/26 0410 79 22 122/78 93 Nasal 2.0L Cannula 10/26 0340 90 93 10/26 0141 98.0 77 30 133/72 89 Nasal 3.0L Cannula 10/25 2254 92 Nasal 3.5L Cannula 10/25 2203 98.5 78 24 135/72 91 Nasal 3.5L Cannula 10/25 2016 92 Nasal 4.0L Cannula 10/25 195 98.0 81 22 139/60 91 Nasal 4.0L Cannula 10/26/17 0410: Troponin I < 0.01 10/25/17 2100: Urine Color YEL, Urine Clarity HAZY H, Urine pH 6.0, Ur Specific [place] >= 1.030, Urine Protein 30 H, Urine Ketones NEG, Urine Nitrite NEG, Urine Bilirubin NEG, Urine Urobilinogen 0.2, Ur Leukocyte Esterase NEG, Ur Microscopic SEDIMENT EXAMINED, Urine RBC RARE, Urine WBC 1-3 H, Ur Epithelial Cells MANY H , Urine Bacteria MANY H, Hyaline Casts RARE H, Granular Casts RARE H, Urine Mucus FEW, Urine Hemoglobin TRACE-INTACT, Urine Glucose NEG 10/25/172052: Anion Gap 11, Estimated GFR 55 L, BUN/Creatinine Ratio 28.0 H, Glucose 91, Calcium 9.4, Total Bilirubin 0.4, AST 18, ALT 32, Alkaline Phosphatase 112, Troponin I < 0.01, Total Protein 6.9, Albumin 3.8, Globulin 3.1, Albumin/ Globulin Ratio 1.2, TSH &T3 &Free T4 Intrp 0.653, CBC w Diff NO MAN DIFF REQ, RBC 3.81 L, MCV 101.1 H, MCH 32.6 H, RDW 15.7 H, MPV 10.5 H, Gran % 76.1 H , Lymphocytes % 13.7 L, Monocytes % 8.8, Eosinophils % 1.0, Basophils % 0.4, Absolute Granulocytes 9.1 H, Absolute Lymphocytes 1.6, Absolute Monocytes 1.0 H, Absolute Eosinophils 0.1, Absolute Basophils 0, PUBS MCHC 32.2 L Microbiology 10/26 530 URINE ROUT: Urine Culture - COLB 10/26 014 URINE ROUT: Urine Culture - RECD HEENT: Pupils reactive to light; extraocular muscles intact. Mucous membranes very dry. Lungs: Diminished movement in all lung hernandez with crackles and rhonchi present. There is some light wheeze on exhalation at the bases. Cardiovascular: Irregularly irregular. Could not appreciate any murmurs. Abdomen: Soft obese, nontender to palpation. Extremities: 2+ edema cxr : Interval increase in interstitial prominence throughout both lungs, likely sales representative girls' apparel of vascular congestion. Superimposed multifocal airspace disease which could correspond to atelectasis, though a developing infiltrate cannot be excluded. During the ED stay patient gradually become drowsy, subsequent ABG showed ph 7.28, po2 48, on 2 L PCO2 90. Patient also received oxycodone couple of hours before becoming drowsy. Per pulmonology consultation patient was upgraded from telemetry to ICU for a couple of hours with BiPAP naloxone administration, then she was downgraded to telemetry and treated for these medical conditions: #Acute hypoxic hypercarbic respiratory failure: Patient remained on BiPAP for a couple of more times during the hospitalization due to being drowsy. Initially she received ceftriaxone and azithromycin for 1 dose and it was stopped. ACS was ruled out and cardiology was on board echocardiogram did not show any acute reduction of EF. Head CT, lumbar CT did not show any acute findings. We continue TRC. Patient should be on nocturnal CPAP every night. She should remain off narcotics for possibility of HAM TRIMMER depression. Patient will go to rehabilitation after discharge. Patient is to begin azithromycin for 5 days and we started fluvent as well. #History of his affect the distal, depression, suicidal ideation with anxiety During the hospitalization patient appeared somewhat depressed with possible suicidal ideation. However, per psychiatry evaluation Patient promised to remain safe. Denies suicidal ideation and we continued her benzodiazepines.she should follow up in outpatient setting with psychiatry. History of A. fib on warfarin We continued warfarin, metoprolol, diltiazem. Patient INR should be checked on 10/30/2017. we contined lasix as well. 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 meter mechanic after discharge Allergies: Coded Allergies: losartan (From COZAAR) (DIARRHEA - SEVERE PER PT 06/22/16) pineapple (MAKES RASHES THAT LOOK LIKE RINGS 06/22/16) shrimp (RASH 06/22/16) tramadol (HIVES 06/22/16) duloxetine (Severe, DIARRHEA 06/22/16) Sulfa (Sulfonamide Antibiotics) (VOMITING 06/22/16) celery (PER PT VOICE GETS HOARSE 06/22/16) ciprofloxacin (From CIPRO) (HAIRS ON ARM STAND UP PER PT 06/22/16) furazolidone (NAUSEA 06/22/16) glucosamine (NAUSEA 06/22/16) mushroom (YEAST INFECTION 06/22/16) sulfamethoxazole (From SEPTRA) (VOMITING 06/22/16) trimethoprim (VOMITING 06/22/16) Pertinent Lab Results: PATIENT: BERTHA CARTER PRESENT AGE: 71 PATIENT ACCOUNT NO: [id number] : 47 LOCATION: [facility] ORDERING PHYSICIAN: Sergio Lema MD SERVICE DATE: 10/25/17 EXAM TYPE: CAT - CT HEAD WO IV CONTRAST EXAMINATION: CT HEAD WITHOUT CONTRAST CLINICAL INFORMATION: Occult head trauma. Awoke on the floor. Possible syncope. COMPARISON: 03/30/2017. 05/22/2012 TECHNIQUE: Contiguous axial imaging was performed from the skull base to vertex without intravenous administration of contrast. DLP: 777 mGy-cm FINDINGS: There is some motion on the acquisition. There is no evidence of acute intracranial hemorrhage or territorial infarction. No abnormal mass effect or midline shift is seen. Dav[place] to white matter differentiation is well preserved. No extra-axial fluid collections are identified. The ventricles are normal in size. There is no abnormal attenuation within the brain parenchyma. No acute osseous or soft tissue abnormalities. There is a stable well marginated lucent focus in the right parietal bone measuring 5 mm, unchanged dating back to 2011. There is a stable left parasagittal frontal osteoma measuring 9 mm along the outer table, incidentally. The mastoid air cells, middle ear cavities, and visualized portions of the paranasal sinuses are well aerated. IMPRESSION: No acute intracranial pathology. DICTATED BY: Jacob Strauss MD DATE/TIME DICTATED:10/25/172112 PULVERIZER MILL OPERATOR:BRONSON DATE/TIME TRANSCRIBED:10/25/172112 CONFIDENTIAL, DO NOT COPY WITHOUT APPROPRIATE AUTHORIZATION. <Electronically signed in Other Vendor System> SIGNED BY: Jacob Strauss MD 10/25/172120 PATIENT: BERTHA CARTER PRESENT AGE: 71 PATIENT ACCOUNT NO: [id number] : 47 LOCATION: [facility] ORDERING PHYSICIAN: Sergio Lema MD SERVICE DATE: 10/25/17 EXAM TYPE: CAT - CT LUMB SPINE WO IV CONTRAST EXAMINATION: CT LUMBAR SPINE WITHOUT CONTRAST CLINICAL INFORMATION: 71-year-old female with possible trauma. Complaint of low back pain. COMPARISON: CT of the abdomen and pelvis on 05/08/2017. TECHNIQUE: Helical non-contrast CT images were obtained through the lumbar spine and 1.25 and 2.5 mm axial reconstructions were reviewed along with sagittal and coronal MPRs. DLP: 1071 mGy-cm FINDINGS: Vertebral height alignment are preserved. The unusual sclerotic bone lesion in L2 is unchanged in size and appearance. Hypertrophic spurs arise from the lumbar vertebral bodies. There is facet arthropathy throughout the lumbosacral spine. The disc spaces are well-preserved. No fractures are detected. There is mild degenerative change involving both SI joints. SPINAL LEVELS: T12-L1: Annular bulge, left neural foramen. L1-L2: No foraminal impingement. L2-L3: Normal disc. L3-L4: Normal disc. L4-L5: No foraminal impingement. L5-S1: No foraminal impingement. The aorta is ectatic and calcified. Abundant renal sinus fat is seen in both kidneys. No paraspinal hematoma formation is seen. IMPRESSION: No evidence of fracture or subluxation. Facet arthritis as described. DICTATED BY: Nikhil Adams MD DATE/TIME DICTATED:10/25/172113 PULVERIZER MILL OPERATOR:BRONSON DATE/TIME TRANSCRIBED:10/25/172113 CONFIDENTIAL, DO NOT COPY WITHOUT APPROPRIATE AUTHORIZATION. <Electronically signed in Other Vendor System> SIGNED BY: Nikhil Adams MD [id number] PATIENT: BERTHA CARTER PRESENT AGE: 71 PATIENT ACCOUNT NO: [id number] : 47 LOCATION: [facility] ORDERING PHYSICIAN: Sergio Lema MD SERVICE DATE: 10/25/17 EXAM TYPE: RAD - XRY-PORTABLE CHEST XRAY EXAMINATION: CHEST 1 VIEW CLINICAL INFORMATION: Crackles. COMPARISON: 09/25/2017. TECHNIQUE: An AP view of the chest is provided. FINDINGS: The cardiac silhouette is prominent, though stable. There is persistent elevation of the right hemidiaphragm. There is interstitial prominence again noted throughout both lungs. There is airspace disease at the right lung base and left perihilar infiltration, increased from previous exam. The osseous structures are stable. IMPRESSION: Interval increase in interstitial prominence throughout both lungs, likely sales representative girls' apparel of vascular congestion. Superimposed multifocal airspace disease which could correspond to atelectasis, though a developing infiltrate cannot be excluded. Recommendation is for a followup chest series to be obtained following treatment and/or resolution of symptoms to assure resolution of this appearance. DICTATED BY: Jose Justin MD DATE/TIME DICTATED:10/25/172244 PULVERIZER MILL OPERATOR:BRONSON DATE/TIME TRANSCRIBED:10/25/172244 CONFIDENTIAL, DO NOT COPY WITHOUT APPROPRIATE AUTHORIZATION. <Electronically signed in Other Vendor System> SIGNED BY: Jose Justin MD 10/25/172248 PATIENT: BERTHA CARTER PRESENT AGE: 71 PATIENT ACCOUNT NO: [id number] : 47 LOCATION: [facility] ORDERING PHYSICIAN: Xavier Sweet MD SERVICE DATE: 10/26/17- EXAM TYPE: CARD - ECHOCARDIOGRAM BERTHA CARTER Age: 71 : 1945 Gender: F Exam Date: 10/26/2017 16:03 Exam Location: ER Ht (in): 66 Wt (lb): 263 BSA: 2.42 BP: 152 / 69 Ordering Physician: Xavier Sweet MD Referring Physician: Junie Ross MD Technologist: Alva Reich [facility] [place] Room Number: ER#9 Indications: PULMONARY HYPERTENSION Rhythm: Atrial fibrillation Technical Quality: Fair FINDINGS Left Ventricle Normal size left ventricle. No obvious regional wall motion abnormalities. Normal left ventricular ejection fraction estimated at 55-60%. Right Ventricle Mild right ventricular dilatation. Right Atrium Mild right atrial dilatation. Left Atrium Mild to moderate left atrial dilatation. Mitral Valve Mitral valve thickened. Mild mitral annular calcification. Mild mitral regurgitation. Aortic Valve Trileaflet aortic valve. Diffuse thickening (sclerosis) of the aortic valve cusps without reduced excursion. No aortic stenosis. No aortic regurgitation. Tricuspid Valve Tricuspid valve not well visualized, grossly normal. Mild-to- moderate tricuspid regurgitation. Right ventricular systolic pressure estimated to be elevated at 46 mmHg. Pulmonic Valve Pulmonic valve not well visualized, grossly normal. Trace pulmonic regurgitation. Pericardium Small pericardial effusion. Great Vessels Aortic root and proximal ascending aorta not well visualized, grossly normal. CONCLUSIONS 1. This was a technically difficult and limited study 2. Mild aortic sclerosis is present with no valvular stenosis or insufficiency 3. Mitral leaflet thickening is present with mild annular calcification and mild mitral insufficiency with moderate left atrial enlargement. 4. A very small posterior pericardial effusion is present which is hemodynamically insignificant. 5. The left ventricular chamber size and systolic function appear normal. There are no visible wall motion abnormalities at rest. 6. Mild enlargement of the right heart chambers is noted with mild to moderate tricuspid insufficiency and minimal pulmonic insufficiency with pulmonary hypertension and a right ventricular systolic pressure of 46 mmHg. Junie Ross M.D. (Electronically Signed) Final Date: 27 October 2017 09:22 MEASUREMENTS (Male / Female) Normal Values 2D ECHO LV Diastolic Diameter PLAX 4.5 cm 4.2 - 5.9 / 3.9 - 5.3 cm LV Systolic Diameter PLAX 2.1 cm 2.1 - 4.0 cm LV Fractional Shortening PLAX 53.3 % 25 - 46 % LV Ejection Fraction 2D Teich 84.4 % IVS Diastolic Thickness 1.2 cm LVPW Diastolic Thickness 1.1 cm LV Relative Wall Thickness 0.5 RV Internal Dim ED PLAX 3.2 cm 1.9 - 3.8 cm LVOT Diameter 1.9 cm Aortic Root Diameter 2.9 cm LA Systolic Diameter LX 4.7 cm 3.0 - 4.0 / 2.7 - 3.8 cm LA Volume 65.0 cm 18 - 58 / 22 - 52 cm Ascending Aorta Diameter 3.2 cm DOPPLER AV Peak Velocity 151.0 cm/s AV Peak Gradient 9.1 mmHg AV Mean Velocity 106.0 cm/s AV Mean Gradient 5.0 mmHg AV Velocity Time Integral 28.3 cm LVOT Peak Velocity 98.5 cm/s LVOT Peak Gradient 3.9 mmHg LVOT Mean Velocity 68.8 cm/s LVOT Mean Gradient 2.0 mmHg LVOT Velocity Time Integral 18.4 cm LVOT Stroke Volume 52.2 cm AV Area Cont Eq vti 1.8 cm AV Area Cont Eq pk 1.8 cm MV Peak Velocity 132.0 cm/s MV Peak Gradient 7.0 mmHg MV Mean Velocity 67.0 cm/s MV Mean Gradient 2.0 mmHg Mitral E Point Velocity 121.0 cm/s MV PHT Velocity 142.0 cm/s MV Deceleration [place] 656.0 cm/s MV Pressure Half Time 64.9 ms MV Area PHT 3.4 cm MV Deceleration Time 246.0 ms TR Peak Velocity 304.0 cm/s TR Peak Gradient 37.0 mmHg Right Atrial Pressure 5.0 mmHg Pulmonary Artery Systolic Pressu 42.0 mmHg Right Ventricular Systolic Press 42.0 mmHg PV Peak Velocity 106.0 cm/s PV Peak Gradient 4.5 mmHg PV Mean Velocity 68.2 cm/s PV Mean Gradient 2.0 mmHg PV Velocity Time Integral 17.3 cm LV E' Lateral Velocity 12.5 cm/s Mitral E to LV E' Lateral Ratio 9.7 LV E' Septal Velocity 14.6 cm/s Mitral E to LV E' Septal Ratio 8.3 DICTATED BY: Ashlyn Ross MD DATE/TIME DICTATED:10/27/17921 PULVERIZER MILL OPERATOR:BRONSON DATE/TIME TRANSCRIBED:10/27/17921 CONFIDENTIAL, DO NOT COPY WITHOUT APPROPRIATE AUTHORIZATION. <Electronically signed in Other Vendor System> SIGNED BY: Aslhyn Ross MD 10/27/17 0923 Disposition Summary Disposition Principal Diagnosis: Acute hypercapnic respiratory failure Additional Diagnosis: History of atrial fibrillation on warfarin History of anxiety Discharge Disposition: SNF Discharge Instructions General Discharge Information Code Status: Full Code Patient's Diet: Heart healthy diet Patient's Activity: As tolerated Follow-Up Instructions/Appts: -Please use your CPAP every night -Please check your INR on 10/31/2017 -Please follow-up with your primary care provider within 7 days after discharge. -Please follow-up with your psychiatrist 7 days after discharge -Please follow-up with your teacher citizenship 7 days after discharge -Please follow-up with your gas meter mechanic 7 days after discharge -We have made changes to your home medications, please read the instructions carefully. -Please come back to the hospital if your symptoms got worse. Medications at Discharge Discharge Medications: Stop taking the following medications: Oxycodone HCl (Oxycodone HCl) 10 MG TABLET ORAL Q8H as needed for PAIN Continue taking these medications: Warfarin Sodium (Warfarin Sodium) 6 MG TABLET 1 Tablet ORAL SuMoTuThFr Qty = 90 Comments: Last Taken:10/27/17 Time:1900 Diazepam (Diazepam) 10 MG TABLET 1 Tablet ORAL TWICE DAILY as needed for ANXIETY Comments: NOT GIVEN DURING STA Diltiazem HCl (Cartia Xt) 180 MG CAP.ER.24H 1 Capsule ORAL TWICE DAILY Comments: Last Taken:10/28/17 Time: 930 Furosemide (Lasix) 20 MG TABLET 2 Tablet ORAL As Directed as needed for SWELLING Comments: Last Taken:10/28/17 Time:930 Metoprolol Succinate (Metoprolol Succinate) 100 MG TAB.ER.24H 1 Tablet ORAL TWICE DAILY Comments: Last Taken:10/28/17 Time: 929 Albuterol Sulfate (Proair Hfa) 90 MCG HFA.AER.AD 2 Puff Inhale through mouth as needed for COPD Comments: NOT GIVEN IN HOSPITAL Montelukast Sodium (Montelukast Sodium) 10 MG TABLET 1 Tablet ORAL DAILY Qty = 90 Comments: NOT TAKEN DURING STAY Potassium Chloride (Potassium Chloride) 10 MEQ TAB.ER.PRT 1 Tablet ORAL As Directed as needed for SUPPLEMENT Qty = 90 Comments: NOT GIVEN IN HOSPITAL Start taking the following new medications: Fluticasone Propionate (Flovent Hfa) 110 MCG/ACTUATION AER.W.ADAP 2 Puff Inhale through mouth TWICE DAILY Qty = 1 No Refills Azithromycin (Azithromycin) 250 MG TABLET 1 Dose Pack ORAL As Directed Qty = 3 No Refills Instructions: start from 10/29/2017 Copies To: Calvin DUEÑAS,Cooper Vallejo; Vicente Sales APRN; Cody DUEÑAS,Ashlyn Mantilla
[2017-10-28] MEDS ORDERED: AZITHROMYCIN250 M1 PO (16:41)
[2017-10-28] MEDS ORDERED: FLOVENT HFA12 G1 INH (16:42)
--- NOTE | 2017-10-28 18:39 | Incdntl Nt Psy ---
Incidental Note Notation: The patient was revisited today, and found to be calm, pleasant and conversational. She is alert and oriented to person, place, month, year but off by one day and date. She denies suicidal or homicidal ideation, and reports that the statement that she made, and believes was misinterpreted was, "I don't think my children care if I live or ." She denies AH or VH and presents no ketty delusions. She has insight into her frequent changes of topic, but denies racing thoughts. She will talk of the present and then switch to a discussion of her problems with her ex- 7 years ago. She reports that she was told she could not attend [facility], and was referred elsewhere. She was unable to arrange psychiatric care, since her psychiatrist, Dr. Brandon Vazquez, became ill. She is expected to discharge over the weekend. I told her I would find out about an opening at or another facility and call her on 10/31/17. She would prefer calls before 12PM or after 1PM, as she is involved with TEAM in between. She woudl prefer appointments in the afternoon. she has [facility]NA service from [facility]. Her phone is [phone]. The patient is ot suicidal, not delirious and not psychotic and is clear for discharge from a psychiatric viewpoint.
== END 2017-10-28 18:30 | DRG 917 ==
LOC: ERH 19:44 → ERHI 10-26 00:33 → EDBEDREQ 10-26 08:25 → EDBEDREQTM 10-26 08:25 → ERHI 10-26 08:32 → 1NO 10-26 08:35 → EDBEDREQTM 10-26 14:33 → EDBEDREQ 10-26 14:33 → ERHI 10-26 14:37 → ENRESERV 10-26 16:44 → ENTRNSPT 10-26 18:22 → CMPTRNSPT 10-26 18:50 → 1NO 10-26 19:06 → CMPTRNSPT 10-27 13:51 → 1NO 10-27 19:38 → ENPENDDIS 10-28 10:56 → 1NO 10-28 18:30
PROVIDERS: Emergency Medicine; Internal Medicine; Internal Medicine Endocrinology, Diabetes & Metabolism; Student in an Organized Health Care Education/Training Program
DX: T40.2X1A Poisoning by other opioids, accidental (unintentional), initial encounter (principal); J96.22 Acute and chronic respiratory failure with hypercapnia; J96.21 Acute and chronic respiratory failure with hypoxia; I27.20 Pulmonary hypertension, unspecified; E66.2 Morbid (severe) obesity with alveolar hypoventilation; Z68.41 Body mass index [BMI] 40.0-44.9, adult; F20.9 Schizophrenia, unspecified; I50.32 Chronic diastolic (congestive) heart failure; J44.0 Chronic obstructive pulmonary disease with (acute) lower respiratory infection; J44.1 Chronic obstructive pulmonary disease with (acute) exacerbation; I48.91 Unspecified atrial fibrillation; I11.0 Hypertensive heart disease with heart failure; Z99.81 Dependence on supplemental oxygen; J20.9 Acute bronchitis, unspecified; Z79.01 Long term (current) use of anticoagulants; Z91.81 History of falling; Z87.891 Personal history of nicotine dependence; Z77.22 Contact with and (suspected) exposure to environmental tobacco smoke (acute) (chronic); F41.9 Anxiety disorder, unspecified; Z85.3 Personal history of malignant neoplasm of breast; I89.0 Lymphedema, not elsewhere classified; Z66 Do not resuscitate; F43.10 Post-traumatic stress disorder, unspecified; F32.9 Major depressive disorder, single episode, unspecified
CPT/HCPCS: 1NP; 36415; 71045; 80307; 81001; 82436; 87040; 87086; 87147; 87449; 87804; 87804-59; 93005; 93010; 93306; 97110-GO; 97112-GO; 97116-GO; 97161-GP; 99232; J0456; J0696; J1940; J2310; J2930; J3490; J7060; J7508